=== PATIENT | male | born 1955 | race Caucasian/White ===

== ENCOUNTER → 2021-02-05 | Outpatient (CLI) | payer MEDICARE, OTHER ==
[2018-10-01 15:09] VITALS: BP 138/78
[~2021-02-05] MED LIST: AMLO-187 PO; ASPI-630 PO; ATOR10TA60 PO; LISI20TA18 PO; METO50TA6 PO; OMEP20CA16 PO
== END ==
LOC: LAB 08:40
PROVIDERS: ATTEND Surgery Vascular Surgery
DX: Z01.812 Encounter for preprocedural laboratory examination (principal); Z20.822 Contact with and (suspected) exposure to COVID-19
CPT/HCPCS: 87426

== ENCOUNTER 2021-02-06 09:30 | Outpatient (CLI) | payer MEDICARE, OTHER ==
[2021-02-06] VITALS (12 sets, daily range): BP systolic 118–153; BP diastolic 63–80
[~2021-02-06] VITALS: Ht 193 cm; Wt 108.2 kg
[2021-02-06 09:58] LABS: HEMATOCRIT 46.4 % (39.0-53.0); HEMOGLOBIN 15.8 g/dL (13.0-17.5); RED BLOOD COUNT 4.85 x10^6/uL (4.30-5.70); WHITE BLOOD COUNT 7.7 x10^3/uL (4.0-11.0)
[2021-02-06 10:08] LABS: PROTHROMBIN TIME PATIENT 13.3 SEC (11.7-14.0)
[2021-02-06] MEDS ORDERED: LIDOCAINE 1% Multi-Dose 20 ML VIAL. ONE ×2 (10:13→12:44)
[2021-02-06] MEDS ORDERED: IODIXANOL 320 MG/ML 100 ML VIAL. ONE (10:14)
[2021-02-06 10:26] LABS: CALCIUM 8.9 mg/dL (8.5-10.1); CREATININE 1.2 mg/dL (0.7-1.3); GFR 60.6; POTASSIUM 4.4 mmol/L (3.5-5.1)
[2021-02-06] MEDS ORDERED: fentaNYL PF VIAL 250 MCG/5 ML VIAL ONE (11:53)
[2021-02-06] MEDS ORDERED: HEPARIN for IV BOLUS 10,000 UNIT/10 ML VIAL. ONE (11:53)
[2021-02-06] MEDS ORDERED: MIDAZOLAM HCL/PF 5 MG/5 ML VIAL. ONE (11:53)
[2021-02-06] MEDS ORDERED: MIDAZOLAM HCL/PF 5 MG/5 ML VIAL. IV ONE ×2 (12:15→13:00)
[2021-02-06] MEDS ORDERED: LIDOCAINE 1% Multi-Dose 20 ML VIAL. INJ ONE (12:15)
[2021-02-06] MEDS ORDERED: fentaNYL PF VIAL 250 MCG/5 ML VIAL IV ONE ×2 (12:15→13:00)
[2021-02-06] MEDS ORDERED: IODIXANOL 320 MG/ML 100 ML VIAL. IART ONE (13:00)
[2021-02-06] MEDS ORDERED: LIDOCAINE 2% Multi-Dose 20 ML VIAL. IJ ONE (13:00)
--- NOTE | 2021-02-06 13:11 | DISCH ---
DISCHARGE INSTRUCTIONS Condition on Discharge Condition on Discharge: Stable Activity After Discharge Activity Instructions for Disc: Activity as tolerated, Other, see below Driving Instructions after Dis: Do not drive today Diet after Discharge Diet after Discharge: Cardiac Wound Incision Care Wound Care Equipment: Dressings (may remove dressing in 2 days, may shower) Contacting the after DC Call your doctor for: If your condition worsens Follow-Up Follow up with: Our office will call you for scheduled surgery ANGELIQUE NI APRN February 06, 2021 13:10
[2021-02-06] MEDS ORDERED: ACETAMINOPHEN 325 MG TABLET. PO PRN (13:15)
--- NOTE | 2021-02-06 13:36 | PDOC4 ---
OPERATIVE NOTE Date: Date: February 06, 2021 Pre-Op Diagnosis: PAD, abnormal TRANG Short distance claudication L > R Post-Op Diagnosis: same Procedure Performed: 1) U/S guided access right KETTLE COORDINATOR 2) 2nd order catheter placement below the diaphragm 3) Aortogram S&I 4) bilateral LE runoff S&I Surgeon: Luke Mendez MD Anesthesia Type: conscious sedation under Surgeon and RN supervision using IV Fentanyl and Versed Total 35 minutes Blood Loss: 10 cc Specimans Obtained: none Findings: 1) Aorta widely patent without aneurysm 2) bilateral common and external iliac widely patent 3) bilateral common femoral with moderate stenosis 4) left SFA occludes at its origin and reconstitues at the P2 -- below the knee there is some disease in the TP trunk, the ADITYA gives inline flow to the foot and below the TP trunk the PT and peroneal are patent 5) right KETTLE COORDINATOR shows mild stenosis -- on images after closure device there is a focal stenosis but flow through this 6) Right PFA patent, right SFA patent proximally, occludes at adductor canal and reconstitutes at the mid popliteal artery, there is good 3 vessel runoff Complications: none Operative Note: Patient was taken to general laborer and placed supine on the table. A timeout was performed and the groins were prepped and draped in the sterile fashion. After confirmation of appropriate monitoring devices sedation was induced with IV fentanyl and versed. Attention was directed to the right groin where the femoral head was marked under fluoroscopy and local anesthetic was injected under U/S guidance. the KETTLE COORDINATOR was examined with U/S. It was found to be widely patent with good flow and an image of the vessels taken and saved for the medical record. Under real-time ultrasound guidance local anesthetic was again injected in the right common f emoral artery was accessed in retrograde fashion using micropuncture needle. This was confirmed under fluoroscopy after placement of the wire. The wire was placed via the cylinder technique and then the needle was exchanged for micropuncture sheath which was backbled easily. This was used to introduce a Bentson wire to the order fluoroscopic guidance and exchange the flexor sheath for a 5 Romansh sheath which was aspirated and flushed with difficulty. This was used to introduce a flush catheter in the aorta and aortogram was obtained. Cath was pulled back to the or bifurcation oblique pelvic angiograms were obtained. Cath was used to aorta bifurcation and pass the wire and the catheter the left common femoral artery. Left leg runoff was obtained. I felt the patient would be better suited with surgery so the catheter was removed over wire and the sheath was used to obtain right leg runoff. The sheath was removed over the Bentson wire and then used to deploy a 6 Romansh Angio-Seal the right femoral artery access site. This initially had some bleeding around the deployment so pressure was held. I was concerned about the distal pulse and so attention was directed to left groin and left femoral artery was accessed in a similar fashion as above. The cyst under ultrasound guidance just described above and we introduced the catheter into the aorta and then passed this into the right common carotid. Right groin and right leg runoff were obtained. There was a focal stenosis perhaps from the closure device perhaps from some disruption of some posterior plaque in the right common femoral artery with good flow through this we decided not to intervene. The sheath was removed and pressure was held and the patient was escorted to [facility] BYRON S MD February 06, 2021 13:36
--- NOTE | 2021-02-06 17:16 | NUR ---
Discharge Note: GRADY MCDONALD Discharge instructions and discharge home medications reviewed with Patient and a copy given. All questions have been answered and understanding verbalized. The following instructions and handouts were given: peripheral vascular disease,moderate sedation(adult),groin site care Discontinued lines and drains: Peripheral IV intact. Patient discharged to Home or Self Care withSpousevia Wheelchair
== END 2021-02-06 17:29 | disposition home or self-care (01) ==
LOC: CCL 09:30
PROVIDERS: ATTEND Surgery Vascular Surgery
DX: I73.9 Peripheral vascular disease, unspecified (principal); I25.10 Atherosclerotic heart disease of native coronary artery without angina pectoris; E78.00 Pure hypercholesterolemia, unspecified; K21.9 Gastro-esophageal reflux disease without esophagitis; I10 Essential (primary) hypertension; M19.90 Unspecified osteoarthritis, unspecified site; Z87.891 Personal history of nicotine dependence; Z79.82 Long term (current) use of aspirin; Z79.899 Other long term (current) drug therapy; Z98.890 Other specified postprocedural states
CPT/HCPCS: 36246; 36415; 75625; 75716; 76937; 80048; 85027; 85610; 99152; 99153; C1760; C1769; C1892; C1894; J0690; J1644; J2250; J3010; J3490; Q9967; G0269

== ENCOUNTER 2021-04-18 14:50 | Inpatient (IN) | payer MEDICARE, OTHER ==
[~2021-04-18] VITALS: Ht 193 cm; Wt 108.3 kg
[~2021-04-18 14:50] MED LIST changes: +CLOP75TA PO; +OXYC1TAB15 PO
[2021-04-18 17:03] LABS: BILIRUBIN,URINE NEGATIVE (NEG); CLARITY,URINE CLEAR; COLOR,URINE YELLOW; NITRITE,URINE NEGATIVE (NEG); PROTEIN,URINE NEGATIVE (NEG-TRACE); UROBILINOGEN,URINE 0.2 mg/dL (0.2 mg/dL)
[2021-04-18 17:09] LABS: BACTERIA,URINE 0 /HPF (0-FEW); RBC,URINE 0 /HPF (0-2); WBC,URINE 0 /HPF (0-4)
[2021-04-18 17:59] LABS: BASO # 0.1 x10^3/uL (0.0-0.2); BASO % 1 % (0-3); EOS # 0.1 x10^3/uL (0.0-0.7); EOS % 1 % (0-3); HEMATOCRIT 39.2 % (39.0-53.0); HEMOGLOBIN 13.5 g/dL (13.0-17.5); LYMPH # 1.9 x10^3/uL (1.0-4.8); LYMPH % 22 % (24-48); MEAN CORPUSCULAR HEMOGLOBIN 33 pg (25-35); MEAN CORPUSCULAR HGB CONC 34 g/dL (31-37); MEAN CORPUSCULAR VOLUME 96 fL (79-100); MONO # 1.1 x10^3/uL (0.0-1.1); MONO % 14 % (0-9); NEUT # 5.2 x10^3/uL (1.8-7.7); NEUT % 62 % (31-73); PLATELET COUNT 338 x10^3/uL (140-400); RED CELL DISTRIBUTION WIDTH 12.8 % (11.5-14.5); WHITE BLOOD COUNT 8.5 x10^3/uL (4.0-11.0)
[2021-04-18] MEDS ORDERED: PIP/TAZO PER PHARMACY MC PRN (18:00)
[2021-04-18 18:12] LABS: GFR 74.8; POTASSIUM 3.9 mmol/L (3.5-5.1)
[2021-04-18] MEDS ORDERED: PIPERACILLIN/TAZOBACTAM 3.375 GM in IV NORMAL SALINE 50ML 50 ML IV ONE (18:15)
[2021-04-18 18:18] LABS: ALBUMIN 3.4 g/dL (3.4-5.0); ALBUMIN/GLOBULIN RATIO 0.8 (1.0-1.7); TOTAL BILIRUBIN 0.4 mg/dL (0.2-1.0); TOTAL PROTEIN 7.5 g/dL (6.4-8.2)
--- NOTE | 2021-04-18 18:55 | PHYS DOC ---
Past Medical History Past Surgical History: Tonsillectomy, Other Additional Past Surgical Histo: VASCULAR LL LEG, BILAT FEET Smoking Status: Former Smoker General Adult EDM: Chief Complaint: LOWER EXT PAIN HPI: HPI: Patient is a 65 year old male who presents to the emergency department complaining of a left lower leg infection that he noticed getting worse over the past 3 days. Patient reports having a femoropopliteal bypass related to a arterial clot in the left leg with surgery on March 232020 here at [facility]. Patient noticed over the past 3 days that his leg was getting more red and started to drain yellowish straw-colored fluid. Patient describes his redness as if he put a red sock on his leg. Patient denies any pain to his lower extremity, denies feeling any coldness or any warm sensations. Patient d enies any loss of sensation. Patient denies any fever or chills, denies chest pain or shortness of breath. Denies rashes of his skin. Patient states he is a patient of Dr. Su. Reports having his COVID-19 virus vaccination series completed second dose on December 06, Camryn camara. Patient denies any other physical complaints or physical concerns. Review of Systems: Review of Systems: 14 body systems of review of systems have been reviewed. See HPI for pertinent positives and negative responses, otherwise all other systems are negative, nonpertinent or noncontributory. Constitutional: Negative except as outlined in HPI above. Skin: Negative except as outlined in HPI above. Eyes: Negative except as outlined in HPI above. HENT: Negative except as outlined in HPI above. Respiratory: Negative except as outlined in HPI above. Cardiovascular: Negative except as outlined in HPI above. GI: Negative except as outlined in HPI above. : Negative except as outlined in HPI above. Musculoskeletal: Negative except as outlined in HPI above. Integument: Negative except as outlined in HPI above. Neurologic: Negative except as outlined in HPI above. Endocrine: Negative except as outlined in HPI above. Lymphatic: Negative except as outlined in HPI above. Psychiatric: Negative except as outlined in HPI above. Heart Score: C/O Chest Pain: No Risk Factors: Risk Factors: DM, Current or recent (<one month) smoker, HTN, HLP, family history of CAD, obesity. Risk Scores: Score 0 - 3: 2.5% MACE over next 6 weeks - Discharge Home Score 4 - 6: 20.3% MACE over next 6 weeks - Admit for Clinical Observation Score 7 - 10: 72.7% MACE over next 6 weeks - Early Invasive Strategies Current Medications: Current Medications Medications (Trade) Dose Ordered Sig/Porfirio Start Time Stop Time Status Last Admin Dose Admin Piperacillin Sod/ Tazobactam Sod (Zosyn Per Pharmacy) 1 each PRN DAILY PRN 04/18/21 18:00 Piperacillin Sod/ Tazobactam Sod 3.375 gm/Sodium Chloride 50 ml @ 100 mls/hr Q6HRS 04/19/21 00:00 Allergies: Allergies: Allergies Coded Allergies Type Severity Reaction Last Updated Verified No Known Drug Allergies 03/23/21 No Physical Exam: PE: C constitutional: Well developed, well nourished, no acute distress, non-toxic appearance. 65-year-old male in no apparent distress. HENT: Normocephalic, atraumatic. Eyes: Conjunctiva normal, no discharge. Neck: Normal range of motion, no stridor. Cardiovascular: No cyanosis appreciated, distal cap refill less than 2 seconds. Lungs & Thorax: Patient is in no respiratory distress, no audible adventitious lung sounds appreciated. Abdomen: Nontender, no abnormalities noted. Skin: Warm, dry, no erythema, no rash. See extremity note for focused skin examination. Back: No tenderness, no deformities. Extremities: No tenderness, no cyanosis, no clubbing, ROM intact, no edema. Except for left lower extremity. Patient's recent surgical scars well healing without infectious process noted. Patient does have erythematous skin with lichenification and weeping of serous fluid. From just below knee to just above ankle. 1+ dorsalis pedis pulse, posterior tibial pulse not appreciated per palpation. Distal cap refills less than 2 seconds, full AROM/PROM of knee, ankle, toe joints. No loss of sensation. Mild 1+ nonpitting edema of the lower extremity below the knee. No lymphangitis appreciated. Neurologic: Alert and oriented X 3, normal motor function, normal sensory function, no focal deficits noted. Psychologic: Affect normal, judgement normal, mood normal. Current Patient Data: Labs: Laboratory Tests Test 04/18/21 16:15 04/18/21 17:40 Urine Collection Type Unknown Urine Color Yellow Urine Clarity Clear Urine pH 6.0 Urine Specific [place] 1.010 Urine Protein Negative mg/dL Urine Glucose (UA) Negative mg/dL Urine Ketones (Stick) Negative mg/dL Urine Blood Negative Urine Nitrite Negative Urine Bilirubin Negative Urine Urobilinogen Dipstick 0.2 mg/dL Urine Leukocyte Esterase Negative Urine RBC 0 /HPF Urine WBC 0 /HPF Urine Bacteria 0 /HPF White Blood Count 8.5 x10^3/uL Red Blood Count 4.10 x10^6/uL Hemoglobin 13.5 g/dL Hematocrit 39.2 % Mean Corpuscular Volume 96 fL Mean Corpuscular Hemoglobin 33 pg Mean Corpuscular Hemoglobin Concent 34 g/dL Red Cell Distribution Width 12.8 % Platelet Count 338 x10^3/uL Neutrophils (%) (Auto) 62 % Lymphocytes (%) (Auto) 22 % Monocytes (%) (Auto) 14 % Eosinophils (%) (Auto) 1 % Basophils (%) (Auto) 1 % Neutrophils # (Auto) 5.2 x10^3/uL Lymphocytes # (Auto) 1.9 x10^3/uL Monocytes # (Auto) 1.1 x10^3/uL Eosinophils # (Auto) 0.1 x10^3/uL Basophils # (Auto) 0.1 x10^3/uL Sodium Level 133 mmol/L Potassium Level 3.9 mmol/L Chloride Level 95 mmol/L Carbon Dioxide Level 25 mmol/L Anion Gap 13 Blood Urea Nitrogen 15 mg/dL Creatinine 1.0 mg/dL Estimated GFR (Cockcroft-Gault) 74.8 BUN/Creatinine Ratio 15 Glucose Level 115 mg/dL Lactic Acid Level 1.2 mmol/L Calcium Level 9.0 mg/dL Total Bilirubin 0.4 mg/dL Aspartate Amino Transf (AST/SGOT) 25 U/L Alanine Aminotransferase (ALT/SGPT) 20 U/L Alkaline Phosphatase 98 U/L Total Protein 7.5 g/dL Albumin 3.4 g/dL Albumin/Globulin Ratio 0.8 Current Medications Medications (Trade) Dose Ordered Sig/Porfirio Route PRN Reason Start Time Stop Time Status Last Admin Dose Admin Piperacillin Sod/ Tazobactam Sod (Zosyn Per Pharmacy) 1 each PRN DAILY PRN MC SEE COMMENTS 04/18/21 18:00 Piperacillin Sod/ Tazobactam Sod 3.375 gm/Sodium Chloride 50 ml @ 100 mls/hr 1X ONCE IV 04/18/21 18:15 04/18/21 18:44 04/18/21 18:29 100 MLS/HR Piperacillin Sod/ Tazobactam Sod 3.375 gm/Sodium Chloride 50 ml @ 100 mls/hr Q6HRS IV 04/19/21 00:00 Laboratory Tests Test 04/18/21 16:15 04/18/21 17:40 Urine Collection Type Unknown Urine Color Yellow Urine Clarity Clear Urine pH 6.0 (<5.0-8.0) Urine Specific [place] 1.010 (1.000-1.030) Urine Protein Negative mg/dL (NEG-TRACE) Urine Glucose (UA) Negative mg/dL (NEG) Urine Ketones (Stick) Negative mg/dL (NEG) Urine Blood Negative (NEG) Urine Nitrite Negative (NEG) Urine Bilirubin Negative (NEG) Urine Urobilinogen Dipstick 0.2 mg/dL (0.2 mg/dL) Urine Leukocyte Esterase Negative (NEG) Urine RBC 0 /HPF (0-2) Urine WBC 0 /HPF (0-4) Urine Bacteria 0 /HPF (0-FEW) White Blood Count 8.5 x10^3/uL (4.0-11.0) Red Blood Count 4.10 x10^6/uL (4.30-5.70) L Hemoglobin 13.5 g/dL (13.0-17.5) Hematocrit 39.2 % (39.0-53.0) Mean Corpuscular Volume 96 fL (79-100) Mean Corpuscular Hemoglobin 33 pg (25-35) Mean Corpuscular Hemoglobin Concent 34 g/dL (31-37) Red Cell Distribution Width 12.8 % (11.5-14.5) Platelet Count 338 x10^3/uL (140-400) Neutrophils (%) (Auto) 62 % (31-73) Lymphocytes (%) (Auto) 22 % (24-48) L Monocytes (%) (Auto) 14 % (0-9) H Eosinophils (%) (Auto) 1 % (0-3) Basophils (%) (Auto) 1 % (0-3) Neutrophils # (Auto) 5.2 x10^3/uL (1.8-7.7) Lymphocytes # (Auto) 1.9 x10^3/uL (1.0-4.8) Monocytes # (Auto) 1.1 x10^3/uL (0.0-1.1) Eosinophils # (Auto) 0.1 x10^3/uL (0.0-0.7) Basophils # (Auto) 0.1 x10^3/uL (0.0-0.2) Sodium Level 133 mmol/L (136-145) L Potassium Level 3.9 mmol/L (3.5-5.1) Chloride Level 95 mmol/L (98-107) L Carbon Dioxide Level 25 mmol/L (21-32) Anion Gap 13 (6-14) Blood Urea Nitrogen 15 mg/dL (8-26) Creatinine 1.0 mg/dL (0.7-1.3) Estimated GFR (Cockcroft-Gault) 74.8 BUN/Creatinine Ratio 15 (6-20) Glucose Level 115 mg/dL (70-99) H Lactic Acid Level 1.2 mmol/L (0.4-2.0) Calcium Level 9.0 mg/dL (8.5-10.1) Total Bilirubin 0.4 mg/dL (0.2-1.0) Aspartate Amino Transferase (AST) 25 U/L (15-37) Alanine Aminotransferase (ALT) 20 U/L (16-63) Alkaline Phosphatase 98 U/L (46-116) Total Protein 7.5 g/dL (6.4-8.2) Albumin 3.4 g/dL (3.4-5.0) Albumin/Globulin Ratio 0.8 (1.0-1.7) L Laboratory Tests 04/18/21 17:40 Laboratory Tests 04/18/21 17:40 Vital Signs: Vital Signs Date Time Temp Pulse Resp B/P (MAP) Pulse Ox O2 Delivery O2 Flow Rate FiO2 04/18/21 17:07 98.5 100 16 165/79 (79) 99 Room Air 98.5 EKG: EKG: [] Radiology/Procedures: Radiology/Procedures: [] Course & Med Decision Making: Course & Med Decision Making Pertinent Labs and Imaging studies reviewed. (See chart for details) Two 5-year-old male, vital signs reviewed, presents emergency department concerning left lower extremity infection. Physical examination consistent with cellulitis of the left lower extremity just below the knee. Patient did have recent femoropopliteal bypass surgery related to arterial clot. Surgical scar is well-healing. Will order CBC, CMP, lactic acid. Blood cultures x2. ED planning to admit for cellulitis infection. Patient is amenable to this plan. Called and discussed patient case and ED work-up with [facility] hospitalist Dr. Miranda who agrees patient presentation and case warrants admission to the hospital. Dr. Miranda requested infectious disease and vascular surgery consult, serial duplex study of left lower extremity related to recent surgery. Will start on Zosyn per pharmacy dosed to treat cellulitis. Patient will be ad mitted to MedSur unit. Dr. Miranda will evaluate patient's admission and assume further care. Dragon Disclaimer: Dragon Disclaimer: This electronic medical record was generated, in whole or in part, using a voice recognition dictation system. Departure Departure Impression: Primary Impression: Left leg cellulitis Disposition: ADMITTED INPATIENT Admitting Physician: STUART (Admit to Dr. Miranda to MedSurg unit.) Condition: STABLE Referrals: SALLY MADSEN MD (PCP) SHALOM GARCIA APRN Apr 18, 2021 18:55
--- NOTE | 2021-04-18 20:24 | RAD ---
Left lower extremity arterial duplex Doppler ultrasound HISTORY: Left leg pain, acute cellulitis, history of femoral popliteal arterial bypass, decreased lef t leg posterior tibial and pedal arterial pulses. FINDINGS: Left groin demonstrates a predominantly fatty-replaced are prominent in size lymph node wit hin the range of normal measuring 3.3 x 1.2 cm. The left leg arteries demonstrate mild echogenic calcified plaquing of the common femoral artery down the leg, no thrombosis or focal high-grade stenosis or occlusion evident on grayscale and color Dopp ler sonography. There are biphasic arterial waveforms through the common femoral artery and profunda femoral artery and upper superficial femoral artery, with monophasic waveforms of the distal superfic ial femoral artery to the popliteal artery and calf arteries. No tardus parvus waveform abnormality e vident. Individual flow velocities are described below. Common femoral artery: 61 cm/s Superficial femoral artery: 84 cm/s upper thigh, 122 cm/s mid thigh, 61 cm/s lower thigh Profunda femoral artery: 103 cm/s Popliteal artery: 26 cm/s proximal, 84 cm/s distal Posterior tibial artery: 81 cm/s Peroneal artery: 74 cm/s Anterior tibial artery: 41 cm/s Dorsalis pedis artery: 55 cm/s Impression: Plaquing of the left leg arteries and associated monophasic waveforms of the distal super ficial femoral artery to the popliteal artery and calf arteries indicative of peripheral vascular dis ease. There is no evidence of hemodynamically significant stenosis or occlusion of the leg arteries. See above. Electronically signed by: Marcellus Calderón MD (04/18/2021 8:22 PM) [facility]
[2021-04-18 21:20] VITALS: BP 151/77
[2021-04-18] MEDS ORDERED: ACETAMINOPHEN 325 MG TABLET. PO PRN (22:45)
[2021-04-18] MEDS ORDERED: HYDROcodone/APAP 5/325MG 1 TAB TABLET PO PRN (22:45)
[2021-04-18 23:00] VITALS: BP 129/78
[2021-04-18] MEDS: ATORVASTATIN CALCIUM 10 MG TABLET. PO SCH (23:22)
[2021-04-18] MEDS: METOPROLOL TART IMMED RELEASE 50 MG TABLET. PO SCH (23:22)
[2021-04-18] MEDS: PIPERACILLIN/TAZOBACTAM 3.375 GM in IV NORMAL SALINE 50ML 50 ML IV SCH (23:49)
[2021-04-19 03:00] VITALS: BP 120/71
[2021-04-19] MEDS: PIPERACILLIN/TAZOBACTAM 3.375 GM in IV NORMAL SALINE 50ML 50 ML IV SCH (05:39)
[2021-04-19 07:00] VITALS: BP 143/82
--- NOTE | 2021-04-19 08:05 | PDOC1 ---
History and Physical Date of Service: DOS: DATE: 04/19/21 TIME: 08:01 Chief Complaint: Chief Complain: Left lower leg redness and pain History of Present Illness: HPI: 65 year old male who presents to the emergency department complaining of a left lower leg infection that he noticed getting worse over the past 3 days. Patient reports having a femoropopliteal bypass with nonreversed SV graft rel ated to a arterial clot in the left leg with surgery on March 232020 here at [facility]. Patient noticed over the past 3 days that his leg was getting more red and started to drain yellowish straw-colored fluid. Patient describes his redness as if he put a red sock on his leg. Patient denies any pain to his lower extremity, denies feeling any coldness or any warm sensations. Patient denies any loss of sensation. Patient denies any fever or chills, denies chest pain or shortness of breath. Denies rashes of his skin. Patient states he is a patient of Dr. Su. Reports having his COVID-19 virus vaccination series completed second dose on December 06, Moderna brand. Patient denies any other physical complaints or physical concerns. Past Medical/Surgical History: PMH/PSH: Past Surgical History: Tonsillectomy, Left fem-pop bypass Allergies: Allergies: Coded Allergies: No Known Drug Allergies (Unverified , 03/23/21) Family History: Family History: Reviewed with no relevant findings Social History: Social History: Smoking Status: Former Smoker Current Medications: Current Medications Current Medications Piperacillin Sod/ Tazobactam Sod (Zosyn Per Pharmacy) 1 each PRN DAILY PRN MC SEE COMMENTS; Start 04/18/21 at 18:00 Piperacillin Sod/ Tazobactam Sod 3.375 gm/Sodium Chloride 50 ml @ 100 mls/hr 1X ONCE IV Last administered on 04/18/21at 18:29; Start 04/18/21 at 18:15; Stop 04/18/21 at 18:44; Status DC Piperacillin Sod/ Tazobactam Sod 3.375 gm/Sodium Chloride 50 ml @ 100 mls/hr Q6HRS IV Last administered on 04/19/21at 05:39; Start 04/19/21 at 00:00 Acetaminophen (Tylenol) 650 mg PRN Q6HRS PRN PO MILD PAIN / TEMP > 100.3'F; Start 04/18/21 at 22:45 Acetaminophen/ Hydrocodone Bitart (Lortab 5/325) 1 tab PRN Q4HRS PRN PO MODERATE PAIN 4-6; Start 04/18/21 at 22:45 Atorvastatin Calcium (Lipitor) 10 mg HS PO Last administered on 04/18/21at 23:22; Start 04/18/21 at 23:00 Metoprolol Tartrate (Lopressor) 50 mg BID PO Last administered on 04/18/21at 23:22; Start 04/18/21 at 23:00 Active Scripts Active Reported Clopidogrel (Clopidogrel Bisulfate) 75 Mg Tablet 75 Mg PO DAILY Omeprazole 20 Mg Capsule.dr 20 Mg PO DAILY Metoprolol Tartrate 50 Mg Tablet 50 Mg PO BID Lisinopril 20 Mg Tablet 20 Mg PO DAILY Atorvastatin Calcium 10 Mg Tablet 10 Mg PO HS Aspirin 81 Mg Tab.chew 81 Mg PO DAILY Amlodipine Besylate 10 Mg Tablet 10 Mg PO DAILY ROS: Review of Systems Review of System REVIEW OF SYSTEMS: GENERAL: Denies weakness SKIN: No bruising, hair changes or rashes. EYES: No blurred, double or loss of vision. NOSE AND THROAT: No history of nosebleeds, hoarseness or sore throat. HEART: No history of palpitations, chest pain or shortness of breath on exertion. LUNGS: Denies cough, hemoptysis, wheezing or shortness of breath. GASTROINTESTINAL: Denies changes in appetite, nausea, vomiting, diarrhea or constipation. GENITOURINARY: No history of frequency, urgency, hesitancy or nocturia. NEUROLOGIC: Denies history of numbness, tingling, or tremor. PSYCHIATRIC: No history of panic, anxiety or depression. ENDOCRINE: No history of heat or cold intolerance, polyuria or polydipsia. EXTREMITIES: Positive for left leg redness and pain Physical Exam: Vital Signs: Vital Signs Date Time Temp Pulse Resp B/P (MAP) Pulse Ox O2 Delivery O2 Flow Rate FiO2 04/19/21 07:00 97.6 86 16 143/82 (102) 96 Room Air 97.6 Physcial Exam: General: Well developed, well nourished, no acute distress, well appearing HEENT: Pupils equally round and reactive to light, EOMI, no discharge, normal conjunctiva Neck: Supple, no nuchal rigidity, no JVD, trachea midline, no tenderness Cardiac: RRR, no murmurs, no gallops, no rubs Chest/Lungs: CTAB, no wheeze, no rhonchi, no crackles Abdomen: soft, non-distended, no guarding, no peritoneal signs, non-tender Back: No tenderness Extremities: Bilateral lower extremities are warm. Left lower extremity cellulitis. Redness and swelling on the calf region. On the medial side just below the knee there is clear drainage through the incision site. No purulence. And tender to palpation. No fluctuance or mass palpated. Neuro: Alert and oriented x 4, no focal deficits, normal speech Labs: Labs: Laboratory Tests Test 04/18/21 16:15 04/18/21 17:40 Urine Collection Type Unknown Urine Color Yellow Urine Clarity Clear Urine pH 6.0 (<5.0-8.0) Urine Specific [place] 1.010 (1.000-1.030) Urine Protein Negative mg/dL (NEG-TRACE) Urine Glucose (UA) Negative mg/dL (NEG) Urine Ketones (Stick) Negative mg/dL (NEG) Urine Blood Negative (NEG) Urine Nitrite Negative (NEG) Urine Bilirubin Negative (NEG) Urine Urobilinogen Dipstick 0.2 mg/dL (0.2 mg/dL) Urine Leukocyte Esterase Negative (NEG) Urine RBC 0 /HPF (0-2) Urine WBC 0 /HPF (0-4) Urine Bacteria 0 /HPF (0-FEW) White Blood Count 8.5 x10^3/uL (4.0-11.0) Red Blood Count 4.10 x10^6/uL (4.30-5.70) Hemoglobin 13.5 g/dL (13.0-17.5) Hematocrit 39.2 % (39.0-53.0) Mean Corpuscular Volume 96 fL (79-100) Mean Corpuscular Hemoglobin 33 pg (25-35) Mean Corpuscular Hemoglobin Concent 34 g/dL (31-37) Red Cell Distribution Width 12.8 % (11.5-14.5) Platelet Count 338 x10^3/uL (140-400) Neutrophils (%) (Auto) 62 % (31-73) Lymphocytes (%) (Auto) 22 % (24-48) Monocytes (%) (Auto) 14 % (0-9) Eosinophils (%) (Auto) 1 % (0-3) Basophils (%) (Auto) 1 % (0-3) Neutrophils # (Auto) 5.2 x10^3/uL (1.8-7.7) Lymphocytes # (Auto) 1.9 x10^3/uL (1.0-4.8) Monocytes # (Auto) 1.1 x10^3/uL (0.0-1.1) Eosinophils # (Auto) 0.1 x10^3/uL (0.0-0.7) Basophils # (Auto) 0.1 x10^3/uL (0.0-0.2) Sodium Level 133 mmol/L (136-145) Potassium Level 3.9 mmol/L (3.5-5.1) Chloride Level 95 mmol/L (98-107) Carbon Dioxide Level 25 mmol/L (21-32) Anion Gap 13 (6-14) Blood Urea Nitrogen 15 mg/dL (8-26) Creatinine 1.0 mg/dL (0.7-1.3) Estimated GFR (Cockcroft-Gault) 74.8 BUN/Creatinine Ratio 15 (6-20) Glucose Level 115 mg/dL (70-99) Lactic Acid Level 1.2 mmol/L (0.4-2.0) Calcium Level 9.0 mg/dL (8.5-10.1) Total Bilirubin 0.4 mg/dL (0.2-1.0) Aspartate Amino Transf (AST/SGOT) 25 U/L (15-37) Alanine Aminotransferase (ALT/SGPT) 20 U/L (16-63) Alkaline Phosphatase 98 U/L (46-116) Total Protein 7.5 g/dL (6.4-8.2) Albumin 3.4 g/dL (3.4-5.0) Albumin/Globulin Ratio 0.8 (1.0-1.7) Laboratory Tests Test 04/18/21 16:15 04/18/21 17:40 Urine Collection Type Unknown Urine Color Yellow Urine Clarity Clear Urine pH 6.0 (<5.0-8.0) Urine Specific [place] 1.010 (1.000-1.030) Urine Protein Negative mg/dL (NEG-TRACE) Urine Glucose (UA) Negative mg/dL (NEG) Urine Ketones (Stick) Negative mg/dL (NEG) Urine Blood Negative (NEG) Urine Nitrite Negative (NEG) Urine Bilirubin Negative (NEG) Urine Urobilinogen Dipstick 0.2 mg/dL (0.2 mg/dL) Urine Leukocyte Esterase Negative (NEG) Urine RBC 0 /HPF (0-2) Urine WBC 0 /HPF (0-4) Urine Bacteria 0 /HPF (0-FEW) White Blood Count 8.5 x10^3/uL (4.0-11.0) Red Blood Count 4.10 x10^6/uL (4.30-5.70) Hemoglobin 13.5 g/dL (13.0-17.5) Hematocrit 39.2 % (39.0-53.0) Mean Corpuscular Volume 96 fL (79-100) Mean Corpuscular Hemoglobin 33 pg (25-35) Mean Corpuscular Hemoglobin Concent 34 g/dL (31-37) Red Cell Distribution Width 12.8 % (11.5-14.5) Platelet Count 338 x10^3/uL (140-400) Neutrophils (%) (Auto) 62 % (31-73) Lymphocytes (%) (Auto) 22 % (24-48) Monocytes (%) (Auto) 14 % (0-9) Eosinophils (%) (Auto) 1 % (0-3) Basophils (%) (Auto) 1 % (0-3) Neutrophils # (Auto) 5.2 x10^3/uL (1.8-7.7) Lymphocytes # (Auto) 1.9 x10^3/uL (1.0-4.8) Monocytes # (Auto) 1.1 x10^3/uL (0.0-1.1) Eosinophils # (Auto) 0.1 x10^3/uL (0.0-0.7) Basophils # (Auto) 0.1 x10^3/uL (0.0-0.2) Sodium Level 133 mmol/L (136-145) Potassium Level 3.9 mmol/L (3.5-5.1) Chloride Level 95 mmol/L (98-107) Carbon Dioxide Level 25 mmol/L (21-32) Anion Gap 13 (6-14) Blood Urea Nitrogen 15 mg/dL (8-26) Creatinine 1.0 mg/dL (0.7-1.3) Estimated GFR (Cockcroft-Gault) 74.8 BUN/Creatinine Ratio 15 (6-20) Glucose Level 115 mg/dL (70-99) Lactic Acid Level 1.2 mmol/L (0.4-2.0) Calcium Level 9.0 mg/dL (8.5-10.1) Total Bilirubin 0.4 mg/dL (0.2-1.0) Aspartate Amino Transf (AST/SGOT) 25 U/L (15-37) Alanine Aminotransferase (ALT/SGPT) 20 U/L (16-63) Alkaline Phosphatase 98 U/L (46-116) Total Protein 7.5 g/dL (6.4-8.2) Albumin 3.4 g/dL (3.4-5.0) Albumin/Globulin Ratio 0.8 (1.0-1.7) Images: Images PROCEDURE: DUPLEX LOWER EXT ARTERIAL LEFT Left lower extremity arterial duplex Doppler ultrasound HISTORY: Left leg pain, acute cellulitis, history of femoral popliteal arterial bypass, decreased left leg posterior tibial and pedal arterial pulses. FINDINGS: Left groin demonstrates a predominantly fatty-replaced are prominent in size lymph node within the range of normal measuring 3.3 x 1.2 cm. The left leg arteries demonstrate mild echogenic calcified plaquing of the common femoral artery down the leg, no thrombosis or focal high-grade stenosis or occlusion evident on grayscale and color Doppler sonography. There are biphasic arterial waveforms through the common femoral artery and profunda femoral artery and upper superficial femoral artery, with monophasic waveforms of the distal superficial femoral artery to the popliteal artery and calf arteries. No tardus parvus waveform abnormality evident. Individual flow velocities are described below. Common femoral artery: 61 cm/s Superficial femoral artery: 84 cm/s upper thigh, 122 cm/s mid thigh, 61 cm/s lower thigh Profunda femoral artery: 103 cm/s Popliteal artery: 26 cm/s proximal, 84 cm/s distal Posterior tibial artery: 81 cm/s Peroneal artery: 74 cm/s Anterior tibial artery: 41 cm/s Dorsalis pedis artery: 55 cm/s Impression: Plaquing of the left leg arteries and associated monophasic waveforms of the distal superficial femoral artery to the popliteal artery and calf arteries indicative of peripheral vascular disease. There is no evidence of hemodynamically significant stenosis or occlusion of the leg arteries. See above. Assessment/Plan Assessment/Plan Left lower extremity cellulitis Acute electrolyte derangementhyponatremia, hypochloremia due to volume depletion History of peripheral vascular disease status post left lower extremity femoropopliteal bypass Admit to hospital service for further management Vascular surgery consult ID consult Continue empiric IV antibiotics Pending ultrasound for determined if there is fluid collection underneath the incision site. Lovenox for DVT prophylaxis Protonix GI prophylaxis ADA diet Full code Discussed with RN and SW Disposition inpatient management as above Surrogate decision maker is Justifications for Admission Other Justification RADHA ISABEL MD Apr 19, 2021 08:05
[2021-04-19] MEDS: METOPROLOL TART IMMED RELEASE 50 MG TABLET. PO SCH ×2 (08:41→20:25)
--- NOTE | 2021-04-19 09:40 | NUR ---
SW following. Discussed with RN, pt from home, room air, cardiac diet. Woundcare, ID and Vascular following. Possible procedure tomorrow. PT/OT being ordered. SW will continue to follow.
--- NOTE | 2021-04-19 10:37 | PDOC2 ---
CONSULT Date of Service Date of Service DATE: 04/19/21 TIME: 10:18 Reason for Consult Reason for Consult: Recent left lower extremity bypass with cellulitis Referring Physician Referring Physician: Dr. Miranda Identification/Chief Complaint Chief Complaint Left calf swelling, redness and drainage Source Source: Chart review, Patient History of Present Illness Reason for Visit: This is a 65-year-old male with history of peripheral vascular disease, hypertension, hyperlipidemia and recent left lower extremity distal bypass who presented to the emergency room with increasing redness, swelling and drainage from his distal calf incision. Patient states that the redness started approxi mately a week ago and two day history of drainage from his distal incision. Currently he describes the drainage as yellow/clear. He patient underwent left common femoral, profundafemoral, deep femoral endarterectomy along with common femoral to distal popliteal bypass on March 23, [address] Armenta. Patient was seen in our office on April 10, 2020 when he was noted to have some lower extremity swelling but no redness or wound dehiscence. He maintains a palpable bypass graft pulse. Patient denies any fever chills. Patient denies any nausea or vomiting. He states he is able to ambulate without difficulty. He states he has had improvement in his foot pain post surgery. Arterial ultrasound suggest patent bypass. Past Medical History Cardiovascular: HTN, Hyperlipidemia, Other (Peripheral vascular disease tobacoism) Past Surgical History Past Surgical History: Tonsillectomy (left femoral popliteal bypass) Family History Family History non-contributory Social History Quit Current Problem List Problem List Problems Medical Problems: (1) Left leg cellulitis Status: Acute Current Medications Current Medications Current Medications Piperacillin Sod/ Tazobactam Sod (Zosyn Per Pharmacy) 1 each PRN DAILY PRN [facility] SEE COMMENTS; Start 04/18/21 at 18:00; Stop 04/19/21 at 09:42; Status DC Piperacillin Sod/ Tazobactam Sod 3.375 gm/Sodium Chloride 50 ml @ 100 mls/hr 1X ONCE IV Last administered on 04/18/21at 18:29; Start 04/18/21 at 18:15; Stop 04/18/21 at 18:44; Status DC Piperacillin Sod/ Tazobactam Sod 3.375 gm/Sodium Chloride 50 ml @ 100 mls/hr Q6HRS IV Last administered on 04/19/21at 05:39; Start 04/19/21 at 00:00; Stop 04/19/21 at 09:42; Status DC Acetaminophen (Tylenol) 650 mg PRN Q6HRS PRN PO MILD PAIN / TEMP > 100.3'F; Start 04/18/21 at 22:45 Acetaminophen/ Hydrocodone Bitart (Lortab 5/325) 1 tab PRN Q4HRS PRN PO MODERATE PAIN 4-6; Start 04/18/21 at 22:45 Atorvastatin Calcium (Lipitor) 10 mg HS PO Last administered on 04/18/21at 23:22; Start 04/18/21 at 23:00 Metoprolol Tartrate (Lopressor) 50 mg BID PO Last administered on 04/19/21at 08:41; Start 04/18/21 at 23:00 Active Scripts Active Reported Clopidogrel (Clopidogrel Bisulfate) 75 Mg Tablet 75 Mg PO DAILY Omeprazole 20 Mg Capsule.dr 20 Mg PO DAILY Metoprolol Tartrate 50 Mg Tablet 50 Mg PO BID Lisinopril 20 Mg Tablet 20 Mg PO DAILY Atorvastatin Calcium 10 Mg Tablet 10 Mg PO HS Aspirin 81 Mg Tab.chew 81 Mg PO DAILY Amlodipine Besylate 10 Mg Tablet 10 Mg PO DAILY Allergies Allergies: Coded Allergies: No Known Drug Allergies (Unverified , 03/23/21) ROS Review of System Constitutional: Denies fever or chills Eyes: Denies any visual disturbances HENT: Denies nasal congestion or sore throat Respiratory: Denies cough or shortness of breath Cardiovascular: Denies any palpitations or chest pain GI: Denies abdominal pain, nausea, vomiting, bloody stools or diarrhea : Denies dysuria or hematuria Musculoskeletal: As per HPI Integument: As per HPI Neurologic: No gross deficits Endocrine: No excessive thirst Physical Exam Physical Exam General: Alert and oriented X3 HEENT: Atraumatic, Pupils equal, round. Mucous membranes moist. Neck: Supple, no lymphadenopathy Cardiac: Heart rate regular. Normal carotid pulses. Lungs: CTA, non-labored respirations. Abdomen: Soft, nontender, nondistended, no palpable masses. Extremities: palpable left leg bypass graft pulse. Capillary refill < 3 secs. Hand held doppler unavailable to assess distal pulses. Musculoskeletal: Gait steady. Moving all extremities. Skin: Left foot warm, moderate to severe swelling and erythema in left calf extending into foot. Distal calf incision with small punctuate dehiscence with yellow/clear drainage. During my examination I was able to express only a small amount of fluid. No fluctuance of crepitus. Gabriella incision with small distal superficial incision dehiscence, no drainage, no erythema. Neurological: Motor and sensation intact. Psychiatry: No depression or anxiety Vitals VITALS Vital Signs Date Time Temp Pulse Resp B/P (MAP) Pulse Ox O2 Delivery O2 Flow Rate FiO2 04/19/21 08:41 86 143/82 04/19/21 07:00 97.6 16 96 Room Air 97.6 Labs Labs Laboratory Tests Test 04/18/21 16:15 04/18/21 17:40 Urine Collection Type Unknown Urine Color Yellow Urine Clarity Clear Urine pH 6.0 (<5.0-8.0) Urine Specific [place] 1.010 (1.000-1.030) Urine Protein Negative mg/dL (NEG-TRACE) Urine Glucose (UA) Negative mg/dL (NEG) Urine Ketones (Stick) Negative mg/dL (NEG) Urine Blood Negative (NEG) Urine Nitrite Negative (NEG) Urine Bilirubin Negative (NEG) Urine Urobilinogen Dipstick 0.2 mg/dL (0.2 mg/dL) Urine Leukocyte Esterase Negative (NEG) Urine RBC 0 /HPF (0-2) Urine WBC 0 /HPF (0-4) Urine Bacteria 0 /HPF (0-FEW) White Blood Count 8.5 x10^3/uL (4.0-11.0) Red Blood Count 4.10 x10^6/uL (4.30-5.70) Hemoglobin 13.5 g/dL (13.0-17.5) Hematocrit 39.2 % (39.0-53.0) Mean Corpuscular Volume 96 fL (79-100) Mean Corpuscular Hemoglobin 33 pg (25-35) Mean Corpuscular Hemoglobin Concent 34 g/dL (31-37) Red Cell Distribution Width 12.8 % (11.5-14.5) Platelet Count 338 x10^3/uL (140-400) Neutrophils (%) (Auto) 62 % (31-73) Lymphocytes (%) (Auto) 22 % (24-48) Monocytes (%) (Auto) 14 % (0-9) Eosinophils (%) (Auto) 1 % (0-3) Basophils (%) (Auto) 1 % (0-3) Neutrophils # (Auto) 5.2 x10^3/uL (1.8-7.7) Lymphocytes # (Auto) 1.9 x10^3/uL (1.0-4.8) Monocytes # (Auto) 1.1 x10^3/uL (0.0-1.1) Eosinophils # (Auto) 0.1 x10^3/uL (0.0-0.7) Basophils # (Auto) 0.1 x10^3/uL (0.0-0.2) Sodium Level 133 mmol/L (136-145) Potassium Level 3.9 mmol/L (3.5-5.1) Chloride Level 95 mmol/L (98-107) Carbon Dioxide Level 25 mmol/L (21-32) Anion Gap 13 (6-14) Blood Urea Nitrogen 15 mg/dL (8-26) Creatinine 1.0 mg/dL (0.7-1.3) Estimated GFR (Cockcroft-Gault) 74.8 BUN/Creatinine Ratio 15 (6-20) Glucose Level 115 mg/dL (70-99) Lactic Acid Level 1.2 mmol/L (0.4-2.0) Calcium Level 9.0 mg/dL (8.5-10.1) Total Bilirubin 0.4 mg/dL (0.2-1.0) Aspartate Amino Transf (AST/SGOT) 25 U/L (15-37) Alanine Aminotransferase (ALT/SGPT) 20 U/L (16-63) Alkaline Phosphatase 98 U/L (46-116) Total Protein 7.5 g/dL (6.4-8.2) Albumin 3.4 g/dL (3.4-5.0) Albumin/Globulin Ratio 0.8 (1.0-1.7) Laboratory Tests Test 04/18/21 16:15 04/18/21 17:40 Urine Collection Type Unknown Urine Color Yellow Urine Clarity Clear Urine pH 6.0 (<5.0-8.0) Urine Specific [place] 1.010 (1.000-1.030) Urine Protein Negative mg/dL (NEG-TRACE) Urine Glucose (UA) Negative mg/dL (NEG) Urine Ketones (Stick) Negative mg/dL (NEG) Urine Blood Negative (NEG) Urine Nitrite Negative (NEG) Urine Bilirubin Negative (NEG) Urine Urobilinogen Dipstick 0.2 mg/dL (0.2 mg/dL) Urine Leukocyte Esterase Negative (NEG) Urine RBC 0 /HPF (0-2) Urine WBC 0 /HPF (0-4) Urine Bacteria 0 /HPF (0-FEW) White Blood Count 8.5 x10^3/uL (4.0-11.0) Red Blood Count 4.10 x10^6/uL (4.30-5.70) Hemoglobin 13.5 g/dL (13.0-17.5) Hematocrit 39.2 % (39.0-53.0) Mean Corpuscular Volume 96 fL (79-100) Mean Corpuscular Hemoglobin 33 pg (25-35) Mean Corpuscular Hemoglobin Concent 34 g/dL (31-37) Red Cell Distribution Width 12.8 % (11.5-14.5) Platelet Count 338 x10^3/uL (140-400) Neutrophils (%) (Auto) 62 % (31-73) Lymphocytes (%) (Auto) 22 % (24-48) Monocytes (%) (Auto) 14 % (0-9) Eosinophils (%) (Auto) 1 % (0-3) Basophils (%) (Auto) 1 % (0-3) Neutrophils # (Auto) 5.2 x10^3/uL (1.8-7.7) Lymphocytes # (Auto) 1.9 x10^3/uL (1.0-4.8) Monocytes # (Auto) 1.1 x10^3/uL (0.0-1.1) Eosinophils # (Auto) 0.1 x10^3/uL (0.0-0.7) Basophils # (Auto) 0.1 x10^3/uL (0.0-0.2) Sodium Level 133 mmol/L (136-145) Potassium Level 3.9 mmol/L (3.5-5.1) Chloride Level 95 mmol/L (98-107) Carbon Dioxide Level 25 mmol/L (21-32) Anion Gap 13 (6-14) Blood Urea Nitrogen 15 mg/dL (8-26) Creatinine 1.0 mg/dL (0.7-1.3) Estimated GFR (Cockcroft-Gault) 74.8 BUN/Creatinine Ratio 15 (6-20) Glucose Level 115 mg/dL (70-99) Lactic Acid Level 1.2 mmol/L (0.4-2.0) Calcium Level 9.0 mg/dL (8.5-10.1) Total Bilirubin 0.4 mg/dL (0.2-1.0) Aspartate Amino Transf (AST/SGOT) 25 U/L (15-37) Alanine Aminotransferase (ALT/SGPT) 20 U/L (16-63) Alkaline Phosphatase 98 U/L (46-116) Total Protein 7.5 g/dL (6.4-8.2) Albumin 3.4 g/dL (3.4-5.0) Albumin/Globulin Ratio 0.8 (1.0-1.7) Assessment/Plan Assessment/Plan 65 year old male with recent left femoral to popliteal bypass with cellulitis in his lower extremity. Arterial Ultrasound suggest patent bypass. I did order an ultrasound to evaluate for fluid collection in his calf. Infectious disease has been consulted. Recommend continue antibiotics. Patient is not currently n.p.o. therefore if surgical exploration is warranted this may need to be postponed until tomorrow. Will await results of the ultrasound. I did discuss history physical examination with Dr. Schwartz and he will see the patient make additional recommendations. Recommend patient continue his daily aspirin and Plavix. Patient seen and examined today, discussed above with ELIUD Verduzco. The duplex of his left leg is now back and it does suggest a large fluid collection in the medial calf over the area of significant erythema there is some concern for an abscess. Given this we will plan on I&D in the operating room tomorrow. ANGELIQUE NI APRN Apr 19, 2021 10:37 JACKELIN SCHWARTZ MD Apr 19, 2021 16:04
--- NOTE | 2021-04-19 10:56 | CONS ---
DATE OF CONSULTATION: 04/19/2021 REFERRING PHYSICIAN: Dr. Miranda. REASON FOR CONSULTATION: Left lower extremity cellulitis and history of recent femoral popliteal bypass. HISTORY OF PRESENT ILLNESS: A 65-year-old male with history of peripheral arterial disease presented to the ER on 04/18/2021 with complaints of left lower leg drainage, which he noticed a couple of days ago. The patient underwent a femoropopliteal bypass with nonreversed SV graft related to the arterial clot in the left leg with surgery on 03/23/2021. He did well postoperatively. He underwent a staple removal on 04/18/2021. He did well for about a week, but over the past 3 days, started having swelling, redness and yellowish straw-colored fluid. He denied any fevers, chills, nausea, vomiting, diarrhea, abdominal pain. He denies being on any antibiotics. He has received COVID vaccination. He was started on Zosyn. White count is normal. He remains afebrile. Vascular Surgery has been consulted. Arterial Doppler showed plaquing of the left leg arteries and associated monophasic waveforms of the distal superficial femoral artery to the popliteal artery and calf arteries indicative of peripheral vascular disease. There is no hemodynamically significant stenosis. The patient is awaiting nonvascular left lower extremity Doppler ultrasound by Vascular Surgery. PAST MEDICAL HISTORY: Peripheral arterial disease. PAST SURGICAL HISTORY: Tonsillectomy, left femoral popliteal bypass. FAMILY HISTORY: As per HPI. ALLERGIES: No known drug allergies. SOCIAL HISTORY: Former smoker, lives at home with his . CURRENT MEDICATIONS: Zosyn. Other medications reviewed in medication list. REVIEW OF SYSTEMS: Negative except for above in HPI. PHYSICAL EXAMINATION: VITAL SIGNS: Temperature 98.5, pulse 94, respiratory rate 20, blood pressure 155/74, oxygen saturation 98% on room air. GENERAL: Alert, oriented x 3 male sitting upright in chair in no acute distress. HEENT: Normocephalic, atraumatic. Anicteric. NECK: Supple, no JVD, no lymphadenopathy. LUNGS: Clear bilaterally. HEART: S1, S2. No murmurs. ABDOMEN: Soft, nontender, nondistended. EXTREMITIES: Left lower extremity, mild redness present. Recently had dressed wound, wound pictures noted. Thigh incision well healed. No cyanosis, no clubbing. DERMATOLOGIC: Warm, dry, no generalized rash except for above. NEUROLOGIC: Alert and oriented x 3, grossly nonfocal. PSYCHIATRIC: Calm and cooperative. LABORATORY DATA: WBC 8.5, hemoglobin 13.5, hematocrit 39.2, platelets 338. Sodium 133, potassium 3.9, chloride 95, bicarb 25, BUN 15, creatinine 1.0, lactate 1.2. LFTs normal. UA negative. IMAGIN. Doppler ultrasound arterial as above. 2. Non-vascular Doppler ultrasound pending at this time. IMPRESSION: 1. Left lower leg drainage from the wound just below the knee. Concern for possible seroma vs abscess with recent surgery 2. History of recent femoral popliteal bypass, left lower extremity on 03/23/2021. 3. Mild hyponatremia. RECOMMENDATIONS: 1. Follow up nonvascular left lower extremity ultrasound. 2. Vascular team following. Discussed with Doretha Shepard APRN. 3. Hold Zosyn for now as pt is afebrile, normal WBC to increase the increase the yield of cultures. Low threshold to restart Zosyn if pt has any systemic symptoms or hemodynamic instability. 4. Monitor labs and cultures. 5. Continue local wound care and dressing as directed. 6. Continue supportive care. Thank you for consulting Infectious Disease to participate in this patient's care. If you have any questions, do not hesitate to contact me. KHANG/KYLEE JENNINGS: Julio TID: [id number] MTDD
[2021-04-19 11:00] VITALS: BP 131/72
[2021-04-19] MEDS: CLOPIDOGREL BISULFATE 75 MG TABLET PO SCH (11:47)
[2021-04-19] MEDS: ASPIRIN CHEWABLE 81 MG TABLET. PO SCH (11:47)
[2021-04-19] MEDS: OMEPRAZOLE 20 MG TABLET PO SCH (11:47)
--- NOTE | 2021-04-19 11:56 | RAD ---
EXAM: Soft tissue ultrasound, left lower extremity. HISTORY: Recent vascular surgery. Concern for fluid collection. COMPARISON: None. FINDINGS: Sonographic assessment was performed at the incision site along the left groin, proximal th igh, distal thigh and proximal calf. There is a heterogeneous hypoechoic collection within the proxim al calf measuring 4.8 x 3.1 x 3.3 cm. No collection is appreciated at the other sites. IMPRESSION: 1. 4.8 x 3.3 cm heterogeneous collection within near the proximal calf incision, consistent with a he matoma or abscess. Correlate for evidence of infection. Electronically signed by: Amanda Lacy MD (04/19/2021 11:53 AM) [facility]
[2021-04-19 15:00] VITALS: BP 142/73
--- NOTE | 2021-04-19 18:06 | NUR ---
Wound/Ostomy Care Wound Type/Assessment: Wound care consult for lef leg cellulitis after a fem-pop dehisced incision. No other wounds noted on head to toe skin assessment. Wound assessed, cleansed and measured. Wound draining large amounts of serous drainage. Treatment Recommendations/Plan: Cleanse wound, pack with betadine soaked 1/4 packing gauze, cover with abd and kerlix, change daily and as needed if saturated. Education provided: pt educated on PU prevention and leg elevation to decrease swelling Offloading surface/device: pillows to elevate legs Recommended Referrals/Tests: n/a Discharge Recommendations for dressings: same as above, wound care will continue to follow up, follow vascular surgery recommendation if other orders are advise.
[2021-04-19 19:20] VITALS: BP 169/90
[2021-04-19] MEDS: ATORVASTATIN CALCIUM 10 MG TABLET. PO SCH (20:24)
[2021-04-19 23:04] VITALS: BP 144/83
[2021-04-20] VITALS (11 sets, daily range): BP systolic 130–154; BP diastolic 75–85
[2021-04-20] MEDS ORDERED: HYDROmorphone 2 MG/ML VIAL IVP PRN (06:00)
[2021-04-20] MEDS ORDERED: fentaNYL PF VIAL 100 MCG/2 ML VIAL IVP PRN ×2 (06:00)
[2021-04-20] MEDS ORDERED: MORPHINE SULFATE 2 MG/ML INJ. IVP PRN (06:00)
[2021-04-20] MEDS ORDERED: PROCHLORPERAZINE 10 MG/2 ML VIAL. IVP PRN (06:00)
[2021-04-20] MEDS ORDERED: IV RINGERS,LACTATED 1000ML 1,000 ML IV SCH (06:00)
[2021-04-20] MEDS: OMEPRAZOLE 20 MG TABLET PO SCH ×2 (07:30→17:49)
[2021-04-20] MEDS: ASPIRIN CHEWABLE 81 MG TABLET. PO SCH (09:00)
[2021-04-20] MEDS: CLOPIDOGREL BISULFATE 75 MG TABLET PO SCH (09:00)
[2021-04-20] MEDS: METOPROLOL TART IMMED RELEASE 50 MG TABLET. PO SCH ×2 (09:28→21:02)
[2021-04-20] MEDS ORDERED: ONDANSETRON PF 4 MG/2 ML VIAL. ONE (10:10)
[2021-04-20] MEDS ORDERED: DEXAMETHASONE SOD PHOS 4 MG/ML VIAL ONE (10:10)
[2021-04-20] MEDS ORDERED: PROPOFOL 10 MG/ML (20ML) VIAL. IV ONE (10:10)
[2021-04-20] MEDS ORDERED: LIDOCAINE 2% PF 5 ML VIAL. ONE ×3 (10:10→10:11)
--- NOTE | 2021-04-20 11:04 | PDOC ---
[employer] PROGRESS NOTE Date of Service DOS: DATE: 04/20/21 TIME: 11:02 Chief Complaint Chief Complaint Left lower extremity cellulitis with infected seroma versus hematoma Acute electrolyte derangementhyponatremia, hypochloremia due to volume depletion History of peripheral vascular disease status post left lower extremity femoropopliteal bypass Admit to hospital service for further management Vascular surgery consult ID consult Continue empiric IV antibiotics Pending ultrasound for determined if there is fluid collection underneath the incision site. Lovenox for DVT prophylaxis Protonix GI prophylaxis ADA diet Full code Discussed with RN and SW Disposition inpatient management as above Surrogate decision maker is History of Present Illness History of Present Illness 65 year old male who presents to the emergency department complaining of a left lower leg infection that he noticed getting worse over the past 3 days. Patient reports having a femoropopliteal bypass with nonreversed SV graft related to a arterial clot in the left leg with surgery on March 232020 here at [facility]. Patient noticed over the past 3 days that his leg was getting more red and started to drain yellowish straw-colored fluid. Patient describes his redness as if he put a red sock on his leg. Patient denies any pain to his lower extremity, denies feeling any coldness or any warm sensations. Patient denies any loss of sensation. Patient denies any fever or chills, denies chest pain or shortness of breath. Denies rashes of his skin. Patient states he is a patient of Dr. Su. Reports having his COVID-19 virus vaccination series completed second dose on December 06, [facility]. Patient denies any other physical complaints or physical concerns. 04/20/2021 No major events overnight. Ultrasound showed yesterday showed complex fluid collection of about 3 x 8 cm possible hematoma. On-call to the OR for I&D with vascular surgery today. Patient's chart, labs, images were reviewed and discussed with RN Vitals/I&O Vitals/I&O: Vital Signs Date Time Temp Pulse Resp B/P (MAP) Pulse Ox O2 Delivery O2 Flow Rate FiO2 04/20/21 10:33 97.1 81 18 171/84 97 Room Air 97.1 I & O 04/19/21 04/19/21 04/20/21 15:00 23:00 07:00 Intake Total 240 ml 240 ml Balance 240 ml 240 ml Labs Labs: Laboratory Tests Test 04/19/21 21:10 SARS-CoV-2 RNA (DOROTEO) Negative (Negative) SARS-CoV-2 Antigen (Rapid) Negative (NEGATIVE) Assessment and Plan Assessmemt and Plan Problems Medical Problems: (1) Left leg cellulitis Status: Acute Comment Review of Relevant I have reviewed the following items lane (where applicable) has been applied. Medications: Current Medications Medications (Trade) Dose Ordered Sig/Porfirio Route PRN Reason Start Time Stop Time Status Last Admin Dose Admin Aspirin (Aspirin Chewable) 81 mg DAILY PO 04/19/21 11:30 04/19/21 11:47 Clopidogrel Bisulfate (Plavix) 75 mg DAILY PO 04/19/21 11:30 04/19/21 11:47 Non-Formulary Medication (Omeprazole ) 20 mg DAILYAC PO 04/19/21 11:30 04/19/21 11:47 Justifications for Admission Other Justification RADHA ISABEL MD Apr 20, 2021 11:04
--- NOTE | 2021-04-20 11:25 | PDOC ---
Infectious Disease Note Subjective: Subjective Patient is off unit for procedure Vital Signs: Vital Signs Vital Signs Date Time Temp Pulse Resp B/P (MAP) Pulse Ox O2 Delivery O2 Flow Rate FiO2 04/20/21 10:33 97.1 81 18 171/84 97 Room Air 97.1 Physical Exam: PHYSICAL EXAM Medications: Inpatient Meds: Medications reviewed. Labs: Lab Laboratory Tests Test 04/19/21 21:10 SARS-CoV-2 RNA (DOROTEO) Negative (Negative) SARS-CoV-2 Antigen (Rapid) Negative (NEGATIVE) Objective: Assessment: 1. Left lower leg drainage from the wound just below the knee. Concern for possible seroma vs abscess with recent surgery 2. History of recent femoral popliteal bypass, left lower extremity on 03/23/2021. 3. Mild hyponatremia. Plan: Plan of Care Will restart empiric Zosyn and daptomycin Monitor labs and cultures. Continue local wound care and dressing as directed. Discussed with nursing staff DARCIE JORDAN MD Apr 20, 2021 11:25
[2021-04-20] MEDS ORDERED: fentaNYL PF VIAL 100 MCG/2 ML VIAL ONE (11:55)
[2021-04-20] MEDS ORDERED: ePHEDrine PF IN SALINE 50 MG/10 ML SYRINGE. IV ONE (12:18)
--- NOTE | 2021-04-20 12:37 | PDOC ---
BRIEF OPERATIVE NOTE Date: Apr 20, 2021 Pre-Op Diagnosis Left calf incisional dehiscence with fluid collection Post-Op Diagnosis same Procedure Performed Left calf incision and drainage, irrigation debridement of subcutaneou tissue and wound vac placement. Surgeon Dr. Saini Journeyman [employer] Angelique Ni,ZEFERINO Anesthesia Type: General Blood Loss minimal Specimens Obtained cultures left calf wound Findings bypass is patent and covered without exposure in wound bed Complications none Operative Note see dictated note ANGELIQEU NI RADIOISOTOPE PRODUCTION OPERATOR Apr 20, 2021 12:37
--- NOTE | 2021-04-20 13:06 | OP ---
DATE OF SURGERY: 04/20/2021 SURGEON: Lucia Saini MD CHEMICAL PRODUCTION MACHINE OPERATOR: Doretha Shepard, nurse practitioner PREOPERATIVE DIAGNOSIS: Recent left femoral to below knee popliteal artery bypass graft with dehiscence of his left calf distal incision and drainage with underlying necrotic tissue. POSTOPERATIVE DIAGNOSIS: Left calf incision dehiscence with underlying seroma and necrotic tissue. PROCEDURES PERFORMED: 1. Left medial calf debridement removing necrotic skin, subcutaneous tissue and old seroma type fluid from the cavity. Measurements after debridement were 13 cm in length x 3 cm in width x 5 cm in depth. 2. Left medial calf wound VAC dressing placement. ESTIMATED BLOOD LOSS: Approximately 5 mL. ANESTHESIA: General anesthesia. INDICATIONS: The patient is a 65-year-old male who recently underwent a left femoral to below knee popliteal artery vein bypass graft. He has developed dehiscence of his distal left medial calf incision with drainage and underlying necrotic tissue. Recommendations have been made for surgical debridement of the left calf wound and incision. Informed consent was obtained. His bypass graft in the left leg was patent by examination with a palpable pulse at the medial knee and by ultrasound study. DESCRIPTION OF PROCEDURE: The patient was brought to the operating room and placed on table in supine position. He received general anesthesia and monitored throughout the case by the anesthesiologist. His left groin and left leg circumferentially was prepped and draped by normal sterile fashion. The left medial calf incision and the distal aspect was dehisced. We opened this and exposed some underlying necrotic tissue and a seroma type cavity extending proximally within the wound. We did have to open the entire incision to open the entire cavity, we removed seroma type fluid along with necrotic subcutaneous tissue throughout the wound bed. Proximally within the wound, we used Doppler and the bypass vein graft was easily dopplered and it was patent. There was no exposure in the wound distal to this of the bypass graft. Therefore, we mobilized subcutaneous tissue at this proximal wound under the skin level. The subcutaneous tissue was brought together and this was able to cover the bypass graft. We irrigated the open wound with copious amounts of antibiotic solution. Hemostasis was gained with electrocautery. We used #2 Monocryl suture and approximated the subcutaneous tissue and the proximal wound to cover the vein bypass graft. It was completely covered with no exposure of the graft. We then placed a wound VAC sponge within the open wound sealed it to suction. The left groin incision was nearly healed. There was one small area of scab and a little bit of necrotic superficial subcutaneous tissue, which was debrided with a curette. There was no deep wounds or signs of infection. Aquacel was left over the left groin incision and a sterile gauze. He tolerated the surgery with no immediate complications. Doretha Shepard was scrubbed throughout the entire length of the case and for wound VAC dressing placement. SPECIMEN REMOVED: Cultures were sent from the left medial calf wound. GABRIELA DR: Kan TID: [id number]
[2021-04-20] MEDS: DAPTOmycin (GENERIC) IVPB 560 MG in IV NORMAL SALINE 50ML 50 ML IV SCH (16:05)
[2021-04-20] MEDS: PIPERACILLIN/TAZOBACTAM 3.375 GM in IV NORMAL SALINE 50ML 50 ML IV SCH (17:47)
[2021-04-20] MEDS: ATORVASTATIN CALCIUM 10 MG TABLET. PO SCH (21:02)
[2021-04-21] MEDS: PIPERACILLIN/TAZOBACTAM 3.375 GM in IV NORMAL SALINE 50ML 50 ML IV SCH ×4 (00:35→18:00)
[2021-04-21 03:00] VITALS: BP 123/67
[2021-04-21 07:00] VITALS: BP 157/88
--- NOTE | 2021-04-21 08:08 | PDOC ---
Infectious Disease Note Subjective: Subjective Patient without complaints Postop site pain is under control Denies any fever, nausea, vomiting, diarrhea, abdominal pain, shortness of breath Vital Signs: Vital Signs Vital Signs Date Time Temp Pulse Resp B/P (MAP) Pulse Ox O2 Delivery O2 Flow Rate FiO2 04/21/21 03:00 98.1 80 16 123/67 (85) 98 Room Air 98.1 04/20/21 12:45 6 Physical Exam: PHYSICAL EXAM GENERAL: Alert, oriented x 3 male in no acute distress. HEENT: Normocephalic, atraumatic. Anicteric. NECK: Supple, no JVD, no lymphadenopathy. LUNGS: Clear bilaterally. HEART: S1, S2. No murmurs. ABDOMEN: Soft, nontender, nondistended. EXTREMITIES: Left lower extremity dressing in place, not taken down DERMATOLOGIC: Warm, dry, no generalized rash except for above. NEUROLOGIC: Alert and oriented x 3, grossly nonfocal. PSYCHIATRIC: Calm and cooperative. Medications: Inpatient Meds: Medications reviewed. Objective: Assessment: 1. Left lower leg drainage from the wound just below the knee. s/p I and D on April 20 cult pending 2. History of recent femoral popliteal bypass, left lower extremity on 03/23/2021. 3. Mild hyponatremia. Plan: Plan of Care Cont Zosyn and daptomycin Monitor labs and cultures including intraop cults Continue local wound care and dressing as directed. Discussed with nursing staff DARCIE JORDAN MD Apr 21, 2021 08:08
[2021-04-21] MEDS: ASPIRIN CHEWABLE 81 MG TABLET. PO SCH (10:08)
[2021-04-21] MEDS: CLOPIDOGREL BISULFATE 75 MG TABLET PO SCH (10:08)
[2021-04-21] MEDS: METOPROLOL TART IMMED RELEASE 50 MG TABLET. PO SCH ×2 (10:09→19:40)
[2021-04-21] MEDS: OMEPRAZOLE 20 MG TABLET PO SCH (10:09)
[2021-04-21 11:00] VITALS: BP 165/87
--- NOTE | 2021-04-21 11:39 | PDOC ---
[employer] PROGRESS NOTE Date of Service DOS: DATE: 04/21/21 TIME: 11:30 Chief Complaint Chief Complaint Left lower extremity cellulitis with infected seroma versus hematoma Acute electrolyte derangementhyponatremia, hypochloremia due to volume depletion History of peripheral vascular disease status post left lower extremity femoropopliteal bypass History of Present Illness History of Present Illness 04/21/2021 Pt seen and examined Pt was sitting up comfortably in bed. He was taking notes concerning his wound VAC D/W RN Chart reviewed Discussed case with Dr. Saini Cultures were negative 65 year old male who presents to the emergency department complaining of a left lower leg infection that he noticed getting worse over the past 3 days. Patient reports having a femoropopliteal bypass with nonreversed SV graft related to a arterial clot in the left leg with surgery on March 23[address] [facility]. Patient noticed over the past 3 days that his leg was getting more red and started to drain yellowish straw-colored fluid. Patient describes his redness as if he put a red sock on his leg. Patient denies any pain to his lower extremity, denies feeling any coldness or any warm sensations. Patient denies any loss of sensation. Patient denies any fever or chills, denies chest pain or shortness of breath. Denies rashes of his skin. Patient states he is a patient of Dr. Su. Reports having his COVID-19 virus vaccination series completed second dose on December 06, [employer]. Patient denies any other physical complaints or physical concerns. 04/20/2021 No major events overnight. Ultrasound showed yesterday showed complex fluid collection of about 3 x 8 cm possible hematoma. On-call to the OR for I&D with vascular surgery today. Patient's chart, labs, images were reviewed and discussed with RN Vitals/I&O Vitals/I&O: Vital Signs Date Time Temp Pulse Resp B/P (MAP) Pulse Ox O2 Delivery O2 Flow Rate FiO2 04/21/21 10:09 77 157/88 04/21/21 07:00 97.8 16 98 Room Air 97.8 04/20/21 12:45 6 I & O 04/20/21 04/20/21 04/21/21 15:00 23:00 07:00 Intake Total 700 ml Output Total 5 ml 1475 ml 1500 ml Balance 695 ml -1475 ml -1500 ml Physical Exam Physical Exam: GENERAL: Alert, oriented x 3 male in no acute distress. HEENT: Normocephalic, atraumatic. Anicteric. NECK: Supple, no JVD, no lymphadenopathy. LUNGS: Clear bilaterally. HEART: S1, S2. No murmurs. ABDOMEN: Soft, nontender, nondistended. EXTREMITIES: Left lower extremity dressing in place, not taken down DERMATOLOGIC: Warm, dry, no generalized rash except for above. NEUROLOGIC: Alert and oriented x 3, grossly nonfocal. PSYCHIATRIC: Calm and cooperative. General: Alert Lungs: Clear Extremities: No clubbing Review of Systems Review of Systems: 04/21/21 Pt denies chest pain Pt denies N/V Assessment and Plan Assessmemt and Plan 04/21/2021 Assessment: Left Lower Leg Cellulitis Hx of Popliteal bypass Plan: Possible D/C on Friday DVT prophylaxis Full Code Discussed case with Dr. Saini Continue wound care and IV Abx (Zosyn and Daptomycin) Problems Medical Problems: (1) Left leg cellulitis Status: Acute Admit to hospital service for further management Vascular surgery consult ID consult Continue empiric IV antibiotics Pending ultrasound for determined if there is fluid collection underneath the incision site. Lovenox for DVT prophylaxis Protonix GI prophylaxis ADA diet Full code Discussed with RN and SW Disposition inpatient management as above Surrogate decision maker is Comment Review of Relevant I have reviewed the following items lane (where applicable) has been applied. Medications: Current Medications Medications (Trade) Dose Ordered Sig/Porfirio Route PRN Reason Start Time Stop Time Status Last Admin Dose Admin Piperacillin Sod/ Tazobactam Sod 3.375 gm/Sodium Chloride 50 ml @ 100 mls/hr Q6HRS IV 04/20/21 18:00 04/21/21 05:59 Daptomycin 560 mg/ Sodium Chloride 50 ml @ 100 mls/hr Q24H IV 04/20/21 15:00 04/20/21 16:05 Justifications for Admission Other Justification ISIS JOHNSON III DO Apr 21, 2021 11:38
[2021-04-21 15:00] VITALS: BP 151/75
[2021-04-21] MEDS: LACTOBACILLUS RHAMNOSUS GG 1 CAPSULE. PO SCH ×2 (15:32→19:40)
[2021-04-21] MEDS: DAPTOmycin (GENERIC) IVPB 560 MG in IV NORMAL SALINE 50ML 50 ML IV SCH (15:33)
[2021-04-21 19:15] VITALS: BP 147/77
[2021-04-21] MEDS: ATORVASTATIN CALCIUM 10 MG TABLET. PO SCH (19:40)
[2021-04-21 23:00] VITALS: BP 127/77
[2021-04-22] MEDS: PIPERACILLIN/TAZOBACTAM 3.375 GM in IV NORMAL SALINE 50ML 50 ML IV SCH ×5 (00:02→23:32)
[2021-04-22 02:53] VITALS: BP 112/76
[2021-04-22 07:00] VITALS: BP 148/82
[2021-04-22] MEDS: OMEPRAZOLE 20 MG TABLET PO SCH (07:49)
[2021-04-22] MEDS: ASPIRIN CHEWABLE 81 MG TABLET. PO SCH (07:49)
[2021-04-22] MEDS: CLOPIDOGREL BISULFATE 75 MG TABLET PO SCH (07:49)
[2021-04-22] MEDS: METOPROLOL TART IMMED RELEASE 50 MG TABLET. PO SCH ×2 (07:50→20:45)
[2021-04-22] MEDS: LACTOBACILLUS RHAMNOSUS GG 1 CAPSULE. PO SCH ×2 (07:50→20:45)
--- NOTE | 2021-04-22 08:23 | PDOC ---
Infectious Disease Note Subjective: Subjective Patient without complaints Postop site pain is under control Denies any fever, nausea, vomiting, diarrhea, abdominal pain, shortness of breath Vital Signs: Vital Signs Vital Signs Date Time Temp Pulse Resp B/P (MAP) Pulse Ox O2 Delivery O2 Flow Rate FiO2 04/22/21 07:50 74 148/72 04/22/21 02:53 97.6 18 97 Room Air 97.6 Physical Exam: PHYSICAL EXAM GENERAL: Alert, oriented x 3 male in no acute distress. HEENT: Normocephalic, atraumatic. Anicteric. NECK: Supple, no JVD, no lymphadenopathy. LUNGS: Clear bilaterally. HEART: S1, S2. No murmurs. ABDOMEN: Soft, nontender, nondistended. EXTREMITIES: Left lower extremity dressing in place, not taken down DERMATOLOGIC: Warm, dry, no generalized rash except for above. NEUROLOGIC: Alert and oriented x 3, grossly nonfocal. PSYCHIATRIC: Calm and cooperative. Medications: Inpatient Meds: Medications reviewed. Objective: Assessment: 1. Left calf incision dehiscence with underlying seroma and necrotic tissue. April 20, 2021 Status post 1. Left medial calf debridement removing necrotic skin, subcutaneous tissue and old seroma type fluid from the cavity. S/P I and D on April 20 cult pending 2. History of recent femoral popliteal bypass, left lower extremity on 03/23/2021. 3. Mild hyponatremia. Plan: Plan of Care Cont Zosyn and daptomycin Monitor labs and cultures including intraop cults Continue local wound care and dressing as directed. Discussed with nursing staff DARCIE JORDAN MD Apr 22, 2021 08:23
--- NOTE | 2021-04-22 09:40 | PDOC ---
[employer] PROGRESS NOTE Date of Service DOS: DATE: 04/22/21 TIME: 09:28 Chief Complaint Chief Complaint Left lower extremity cellulitis with infected seroma versus hematoma Acute electrolyte derangementhyponatremia, hypochloremia due to volume depletion History of peripheral vascular disease status post left lower extremity femoropopliteal bypass History of Present Illness History of Present Illness 04/22/2021 Pt seen and examined Pt was sitting comfortably in chair. He says he is ready to go home D/W RN Chart reviewed 04/21/2021 Pt seen and examined Pt was sitting up comfortably in bed. He was taking notes concerning his wound VAC D/W RN Chart reviewed Discussed case with Dr. Saini Cultures were negative 65 year old male who presents to the emergency department complaining of a left lower leg infection that he noticed getting worse over the past 3 days. Patient reports having a femoropopliteal bypass with nonreversed SV graft related to a arterial clot in the left leg with surgery on March 232020 here at [facility]. Patient noticed over the past 3 days that his leg was getting more red and started to drain yellowish straw-colored fluid. Patient describes his redness as if he put a red sock on his leg. Patient denies any pain to his lower extremity, denies feeling any coldness or any warm sensations. Patient denies any loss of sensation. Patient denies any fever or chills, denies chest pain or shortness of breath. Denies rashes of his skin. Patient states he is a patient of Dr. Su. Reports having his COVID-19 virus vaccination series completed second dose on December 06, [employer]. Patient denies any other physical complaints or physical concerns. 04/20/2021 No major events overnight. Ultrasound showed yesterday showed complex fluid collection of about 3 x 8 cm possible hematoma. On-call to the OR for I&D with vascular surgery today. Patient's chart, labs, images were reviewed and discussed with RN Vitals/I&O Vitals/I&O: Vital Signs Date Time Temp Pulse Resp B/P (MAP) Pulse Ox O2 Delivery O2 Flow Rate FiO2 04/22/21 07:50 74 148/72 04/22/21 07:00 98.3 16 97 Room Air 98.3 I & O 04/21/21 04/21/21 04/22/21 15:00 23:00 07:00 Intake Total 710 ml 370 ml Output Total 300 ml 2200 ml Balance 710 ml 70 ml -2200 ml Physical Exam Physical Exam: GENERAL: Alert, oriented x 3 male in no acute distress. HEENT: Normocephalic, atraumatic. Anicteric. NECK: Supple, no JVD, no lymphadenopathy. LUNGS: Clear bilaterally. HEART: S1, S2. No murmurs. ABDOMEN: Soft, nontender, nondistended. EXTREMITIES: Left lower extremity dressing in place, not taken down DERMATOLOGIC: Warm, dry, no generalized rash except for above. NEUROLOGIC: Alert and oriented x 3, grossly nonfocal. PSYCHIATRIC: Calm and cooperative. General: Alert, Cooperative, No acute distress Lungs: Clear Extremities: No clubbing Review of Systems Review of Systems: Pt denies N/V Pt denies chest pain Assessment and Plan Assessmemt and Plan 04/22/2021 Assessment: Left lower extremity cellulitis Plan: Continue Zosyn and Daptomycin Trend lands and cultures Continue Wound Care Possible D/C after wound care vac change on Friday PTOT DVT prophylaxis Home Rx Problems Medical Problems: (1) Left leg cellulitis Status: Acute Comment Review of Relevant I have reviewed the following items lane (where applicable) has been applied. Medications: Current Medications Medications (Trade) Dose Ordered Sig/Porfirio Route PRN Reason Start Time Stop Time Status Last Admin Dose Admin Lactobacillus Rhamnosus (Culturelle) 1 cap BID PO 04/21/21 14:00 04/22/21 07:50 Justifications for Admission Other Justification ISIS JOHNSON III DO Apr 22, 2021 09:40
[2021-04-22 11:00] VITALS: BP 132/66
[2021-04-22 15:00] VITALS: BP 138/77
[2021-04-22] MEDS: DAPTOmycin (GENERIC) IVPB 560 MG in IV NORMAL SALINE 50ML 50 ML IV SCH (15:52)
[2021-04-22] MEDS: MULTIVITAMIN with MINERAL TABLET. PO SCH (16:36)
[2021-04-22] MEDS: ASCORBIC ACID 500 MG TABLET PO SCH (16:36)
[2021-04-22 19:00] VITALS: BP 147/74
[2021-04-22] MEDS: ATORVASTATIN CALCIUM 10 MG TABLET. PO SCH (20:45)
[2021-04-22 23:00] VITALS: BP 136/81
[2021-04-23 02:56] VITALS: BP 129/81
[2021-04-23] MEDS: PIPERACILLIN/TAZOBACTAM 3.375 GM in IV NORMAL SALINE 50ML 50 ML IV SCH (05:36)
[2021-04-23 07:00] VITALS: BP 145/87
--- NOTE | 2021-04-23 08:27 | PDOC ---
PROGRESS NOTES Date of Service: DATE: 04/23/21 TIME: 08:27 Chief Complaint Chief Complaint Left lower extremity cellulitis with infected seroma versus hematoma Acute electrolyte derangementhyponatremia, hypochloremia due to volume depletion History of peripheral vascular disease status post left lower extremity fem oropopliteal bypass History of Present Illness History of Present Illness 04/23/2021 4.8 x 3.3 cm heterogeneous collection within near the proximal calf incision, consistent with a hematoma or abscess. Correlate for evidence of infection. seen and examined Pt was sitting comfortably in chair. He says he is ready to go home D/W RN Chart reviewed femoropopliteal bypass with nonreversed SV graft related to a arterial clot in the left leg with surgery on March 232020/ [facility]. Cont Zosyn and daptomycin change Zosyn and daptomycin to augmentin Monitor labs and cultures including intraop cults Continue local wound care and dressing as directed. ok to d/c home PER ID 8 labs and cultures including intraop cults D/C PLANNING V33 MIN 04/22/2021 Pt seen and examined Pt was sitting comfortably in chair. He says he is ready to go home D/W RN Chart reviewed 04/21/2021 Pt seen and examined Pt was sitting up comfortably in bed. He was taking notes concerning his wound VAC D/W RN Chart reviewed Discussed case with Dr. Saini Cultures were negative 65 year old male who presents to the emergency department complaining of a left lower leg infection that he noticed getting worse over the past 3 days. Patient reports having a femoropopliteal bypass with nonreversed SV graft related to a arterial clot in the left leg with surgery on March 232020 here at [facility]. Patient noticed over the past 3 days that his leg was getting more red and started to drain yellowish straw-colored fluid. Patient describes his redness as if he put a red sock on his leg. Patient denies any pain to his lower extremity, denies feeling any coldness or any warm sensations. Patient denies any loss of sensation. Patient denies any fever or chills, denies chest pain or shortness of breath. Denies rashes of his skin. Patient states he is a patient of Dr. Su. Reports having his COVID-19 virus vaccination series completed second dose on December 06, [employer] brand. Alivia marie denies any other physical complaints or physical concerns. 04/20/2021 No major events overnight. Ultrasound showed yesterday showed complex fluid collection of about 3 x 8 cm possible hematoma. On-call to the OR for I&D with vascular surgery today. Patient's chart, labs, images were reviewed and discussed with RN Vitals Vitals Vital Signs Date Time Temp Pulse Resp B/P (MAP) Pulse Ox O2 Delivery O2 Flow Rate FiO2 04/23/21 07:00 98.4 74 18 145/87 (106) 97 Room Air 98.4 Physical Exam Physical Exam GENERAL: Alert, oriented x 3 male in no acute distress. HEENT: Normocephalic, atraumatic. Anicteric. NECK: Supple, no JVD, no lymphadenopathy. LUNGS: Clear bilaterally. HEART: S1, S2. No murmurs. ABDOMEN: Soft, nontender, nondistended. EXTREMITIES: Left lower extremity dressing in place, not taken down DERMATOLOGIC: Warm, dry, no generalized rash except for above. NEUROLOGIC: Alert and oriented x 3, grossly nonfocal. PSYCHIATRIC: Calm and cooperative. General: Alert, Oriented X3, Cooperative, No acute distress Lungs: Clear Abdomen: Normal bowel sounds, Soft, No tenderness Extremities: No clubbing, No cyanosis, No edema Labs LABS It helps to think and talk about your own wishes for healthcare in case youre ever not able to tell your loved ones or healthcare team what your wishes are. If you became really sick tomorrow, would your loved ones or healthcare team know what your wishes were? Here are some examples of different sets of goals and health care directives for your conversations: My wish is to use all medical therapies including resuscitation (such as CPR) and artificial life- sustaining treatments (such as machines and medicine) in an intensive care unit, to keep me alive if at all possible. My wish is to live as long as possible, but I dont want attempts to bring me back to life if my heart and breathing stop. I would like full medical care but without using resuscitation or artificial life-sustaining intensive treatments, if these are unlikely to make me live longer or restore me to a certain quality of life. I will accept treatments that try to fix medical problems, but if Im not getting better or going to have a certain quality of life, I would want to switch to focusing only on my comfort and letting my happen naturally. My wish is for healthcare to focus on my comfort and lessen suffering. I would like medical care that focuses only on my quality of life and that allows me to naturally. Consider: What does a good quality of life mean for me? For many people, it is the ability to live independently and tell their own story. I may define it differently. Under what circumstances would I not want to be kept alive by medical treatments, resuscitation, or intensive care? What kind of changes to my health or life might make me change my mind? If I clearly am facing the last chapter of my life, how do I want the story to end? Who do I want to speak for me if I cant speak for myself? Do they understand my preferences? Are they willing to assume the role of my Durable Power of Charge Coordinator? Can I change my Goals of Care Designation? Yes, your Goals of Care Designation can be changed at any time. It should be reviewed if: your health condition changes your circumstances change (such as new understanding) you are transferred or admitted to another healthcare setting dpoa review, to pt portal 19 min and question review PATIENT: GRADY MCDONALD CACCOUNT: [id number] : 1955 LOCATION: [address] [place] [address] AGE: 65 SEX: M EXAM STATUS: ADM IN ORD. PHYSICIAN: ANGELIQUE NI APRN REASON: evaluate for fluid collection groin, thigh and calf around graft incisons PROCEDURE: EXT NON VASC LEFT EXAM: Soft tissue ultrasound, left lower extremity. HISTORY: Recent vascular surgery. Concern for fluid collection. COMPARISON: None. FINDINGS: Sonographic assessment was performed at the incision site along the left groin, proximal thigh, distal thigh and proximal calf. There is a heterogeneous hypoechoic collection within the proximal calf measuring 4.8 x 3.1 x 3.3 cm. No collection is appreciated at the other sites. IMPRESSION: 1. 4.8 x 3.3 cm heterogeneous collection within near the proximal calf incision, consistent with a hematoma or abscess. Correlate for evidence of infection. Electronically signed by: Amanda Lacy MD (04/19/2021 11:53 AM) [facility] DICTATED and SIGNED BY: LOLA LACY MD DATE: 04/19/21 [id number] 0 Assessment and Plan Assessmemt and Plan Problems Medical Problems: (1) Left leg cellulitis Status: Acute Comment Review of Relevant I have reviewed the following items lane (where applicable) has been applied. Labs Microbiology 04/20/21 Gram Stain - Final, Resulted 04/20/21 Aerobic and Anaerobic Culture - Preliminary, Resulted 04/18/21 Blood Culture - Preliminary, Resulted NO GROWTH AFTER 4 DAYS Medications Current Medications Piperacillin Sod/ Tazobactam Sod (Zosyn Per Pharmacy) 1 each PRN DAILY PRN MC SEE COMMENTS; Start 04/18/21 at 18:00; Stop 04/19/21 at 09:42; Status DC Piperacillin Sod/ Tazobactam Sod 3.375 gm/Sodium Chloride 50 ml @ 100 mls/hr 1X ONCE IV Last administered on 04/18/21at 18:29; Start 04/18/21 at 18:15; Stop 04/18/21 at 18:44; Status DC Piperacillin Sod/ Tazobactam Sod 3.375 gm/Sodium Chloride 50 ml @ 100 mls/hr Q6HRS IV Last administered on 04/19/21at 05:39; Start 04/19/21 at 00:00; Stop 04/19/21 at 09:42; Status DC Acetaminophen (Tylenol) 650 mg PRN Q6HRS PRN PO MILD PAIN / TEMP > 100.3'F; Start 04/18/21 at 22:45 Acetaminophen/ Hydrocodone Bitart (Lortab 5/325) 1 tab PRN Q4HRS PRN PO MODERATE PAIN 4-6; Start 04/18/21 at 22:45 Atorvastatin Calcium (Lipitor) 10 mg HS PO Last administered on 04/22/21at 20:45; Start 04/18/21 at 23:00 Metoprolol Tartrate (Lopressor) 50 mg BID PO Last administered on 04/22/21at 20:45; Start 04/18/21 at 23:00 Aspirin (Aspirin Chewable) 81 mg DAILY PO Last administered on 04/22/21at 07:49; Start 04/19/21 at 11:30 Clopidogrel Bisulfate (Plavix) 75 mg DAILY PO Last administered on 04/22/21at 07:49; Start 04/19/21 at 11:30 Non-Formulary Medication (Omeprazole ) 20 mg DAILYAC PO Last administered on 04/22/21at 07:49; Start 04/19/21 at 11:30 Fentanyl Citrate (Fentanyl 2ml Vial) 25 mcg PRN Q5MIN PRN IVP MILD PAIN 1-3; Start 04/20/21 at 06:00; Stop 04/20/21 at 19:00; Status DC Fentanyl Citrate (Fentanyl 2ml Vial) 50 mcg PRN Q5MIN PRN IVP MODERATE PAIN 4- 6; Start 04/20/21 at 06:00; Stop 04/20/21 at 19:00; Status DC Morphine Sulfate (Morphine Sulfate) 1 mg PRN Q10MIN PRN IVP SEVERE PAIN 7-10; Start 04/20/21 at 06:00; Stop 04/20/21 at 19:00; Status DC Ringer's Solution 1,000 ml @ 30 mls/hr Q24H IV Last administered on 04/20/21at 10:00; Start 04/20/21 at 06:00; Stop 04/20/21 at 17:59; Status DC Hydromorphone HCl (Dilaudid) 0.5 mg PRN Q10MIN PRN IVP SEVERE PAIN 7-10, 2nd CHOICE; Start 04/20/21 at 06:00; Stop 04/20/21 at 19:00; Status DC Prochlorperazine Edisylate (Compazine) 5 mg PACU PRN PRN IVP NAUSEA, MRX1; Start 04/20/21 at 06:00; Stop 04/20/21 at 19:00; Status DC Dexamethasone Sodium Phosphate (Decadron) 4 mg STK-MED ONCE .ROUTE ; Start 04/20/21 at 10:10; Stop 04/20/21 at 10:10; Status DC Propofol (Diprivan) 200 mg STK-MED ONCE IV ; Start 04/20/21 at 10:10; Stop 04/20/21 at 10:10; Status DC Lidocaine HCl (Lidocaine Pf 2% Vial) 5 ml STK-MED ONCE .ROUTE ; Start 04/20/21 at 10:10; Stop 04/20/21 at 10:10; Status DC Lidocaine HCl (Lidocaine Pf 2% Vial) 5 ml STK-MED ONCE .ROUTE ; Start 04/20/21 at 10:10; Stop 04/20/21 at 10:10; Status DC Ondansetron HCl (Zofran) 4 mg STK-MED ONCE .ROUTE ; Start 04/20/21 at 10:10; Stop 04/20/21 at 10:10; Status DC Lidocaine HCl (Lidocaine Pf 2% Vial) 5 ml STK-MED ONCE .ROUTE ; Start 04/20/21 at 10:11; Stop 04/20/21 at 10:11; Status DC Cefazolin Sodium 1 gm/Sodium Chloride 500 ml @ 500 mls/hr 1X ONCE IRR Last administered on 04/20/21at 11:59; Start 04/20/21 at 11:30; Stop 04/20/21 at 12:29; Status DC Fentanyl Citrate (Fentanyl 2ml Vial) 100 mcg STK-MED ONCE .ROUTE ; Start 04/20/21 at 11:55; Stop 04/20/21 at 11:55; Status DC Piperacillin Sod/ Tazobactam Sod 3.375 gm/Sodium Chloride 50 ml @ 100 mls/hr Q6HRS IV Last administered on 04/23/21at 05:36; Start 04/20/21 at 18:00 Daptomycin 560 mg/ Sodium Chloride 50 ml @ 100 mls/hr Q24H IV Last administered on 04/22/21at 15:52; Start 04/20/21 at 15:00 Ephedrine Sulfate (ePHEDrine PF IN SALINE SYRINGE) 50 mg STK-MED ONCE IV ; Start 04/20/21 at 12:18; Stop 04/20/21 at 12:18; Status DC Lactobacillus Rhamnosus (Culturelle) 1 cap BID PO Last administered on 04/22/21at 20:45; Start 04/21/21 at 14:00 Multivitamins (Thera M Plus) 1 tab DAILY PO Last administered on 04/22/21at 16:36; Start 04/22/21 at 17:00 Ascorbic Acid (Vitamin C) 500 mg DAILY PO Last administered on 04/22/21at 16:36; Start 04/22/21 at 17:00 Active Scripts Active Reported Clopidogrel (Clopidogrel Bisulfate) 75 Mg Tablet 75 Mg PO DAILY Omeprazole 20 Mg Capsule.dr 20 Mg PO DAILY Metoprolol Tartrate 50 Mg Tablet 50 Mg PO BID Lisinopril 20 Mg Tablet 20 Mg PO DAILY Atorvastatin Calcium 10 Mg Tablet 10 Mg PO HS Aspirin 81 Mg Tab.chew 81 Mg PO DAILY Amlodipine Besylate 10 Mg Tablet 10 Mg PO DAILY Vitals/I & O Vital Sign - Last 24 Hours 04/22/21 04/22/21 04/22/21 04/22/21 11:00 15:00 19:00 20:00 Temp 97.6 98.0 98.6 97.6 98.0 98.6 Pulse 67 74 74 Resp 16 16 18 B/P (MAP) 132/66 (88) 138/77 (97) 147/74 (98) Pulse Ox 98 96 97 O2 Delivery Room Air Room Air Room Air Room Air 04/22/21 04/22/21 04/23/21 04/23/21 20:45 23:00 02:56 07:00 Temp 97.5 98.0 98.4 97.5 98.0 98.4 Pulse 74 74 79 74 Resp 18 18 18 B/P (MAP) 147/74 136/81 (99) 129/81 (97) 145/87 (106) Pulse Ox 96 98 97 O2 Delivery Room Air Room Air Room Air Intake and Output 04/22/21 04/22/21 04/23/21 15:00 23:00 07:00 Output Total 500 ml 1950 ml Balance -500 ml -1950 ml Justicifation of Admission Dx: Justifications for Admission: Justification of Admission Dx: Yes HAYDER JACKSON MD Apr 23, 2021 08:27
--- NOTE | 2021-04-23 08:55 | PDOC ---
Infectious Disease Note Subjective Subjective Patient without complaints Postop site pain is under control Denies any fever, nausea, vomiting, diarrhea, abdominal pain, shortness of breath ROS ROS as above Vital Sign Vital Signs Vital Signs Date Time Temp Pulse Resp B/P (MAP) Pulse Ox O2 Delivery O2 Flow Rate FiO2 04/23/21 07:00 98.4 74 18 145/87 (106) 97 Room Air 98.4 Physical Exam PHYSICAL EXAM GENERAL: Alert, oriented x 3 male in no acute distress. HEENT: Normocephalic, atraumatic. Anicteric. NECK: Supple, no JVD, no lymphadenopathy. LUNGS: Clear bilaterally. HEART: S1, S2. No murmurs. ABDOMEN: Soft, nontender, nondistended. EXTREMITIES: Left lower extremity wound seen clean , healthy granulation DERMATOLOGIC: Warm, dry, no generalized rash except for above.,, NEUROLOGIC: Alert and oriented x 3, grossly nonfocal. PSYCHIATRIC: Calm and cooperative. Labs Micro culture neg Objective Assessment 1. Left calf incision dehiscence with underlying seroma and necrotic tissue. April 20, 2021 Status post 1. Left medial calf debridement removing necrotic skin, subcutaneous tissue and old seroma type fluid from the cavity. S/P I and D on April 20 cult pending 2. History of recent femoral popliteal bypass, left lower extremity on 03/23/2021. 3. Mild hyponatremia. Plan Plan of Care change Zosyn and daptomycin to augmentin Monitor labs and cultures including intraop cults Continue local wound care and dressing as directed. ok to d/c home Discussed with nursing staff ANDIE JORDAN MD Apr 23, 2021 08:55
[2021-04-23] MEDS ORDERED: AMOXICILLIN/K CLAV 875/125MG TABLET. PO SCH (09:00)
[2021-04-23] MEDS: ASCORBIC ACID 500 MG TABLET PO SCH (09:00)
[2021-04-23] MEDS: MULTIVITAMIN with MINERAL TABLET. PO SCH (09:49)
[2021-04-23] MEDS: ASPIRIN CHEWABLE 81 MG TABLET. PO SCH (09:49)
[2021-04-23] MEDS: CLOPIDOGREL BISULFATE 75 MG TABLET PO SCH (09:49)
[2021-04-23] MEDS: METOPROLOL TART IMMED RELEASE 50 MG TABLET. PO SCH (09:49)
[2021-04-23] MEDS: LACTOBACILLUS RHAMNOSUS GG 1 CAPSULE. PO SCH (09:49)
[2021-04-23] MEDS: OMEPRAZOLE 20 MG TABLET PO SCH (09:50)
--- NOTE | 2021-04-23 10:26 | PDOC3 ---
Discharge Summary Date of Admission: Apr 18, 2021 Date of Discharge: Apr 23, 2021 Follow-Up: 1-2 days Admitting Diagnosis comment: Chief Complaint Left lower extremity cellulitis with infected seroma versus hematoma Acute electrolyte derangementhyponatremia, hypochloremia due to volume depletion History of peripheral vascular disease status post left lower extremity femoropo pliteal bypass DISCHARGE DX COMPLICATIONS // NONE D/C DIET HEART HEALTHY, REDUSE ALCOHOL INTAKE CONSULTS ID, VASCULAR SURGERY PROCEDURES = SEX: M STATUS: ADM IN LOCATION: [address] [place] [address] DATE OF SURGERY: 04/20/2021 SURGEON: Lucia Saini MD ASSEMBLER [employer]: Doretha Shepard, nurse practitioner PREOPERATIVE DIAGNOSIS: Recent left femoral to below knee popliteal artery bypass graft with dehiscence of his left calf distal incision and drainage with underlying necrotic tissue. POSTOPERATIVE DIAGNOSIS: Left calf incision dehiscence with underlying seroma and necrotic tissue. PROCEDURES PERFORMED: 1. Left medial calf debridement removing necrotic skin, subcutaneous tissue and old seroma type fluid from the cavity. Measurements after debridement were 13 cm in length x 3 cm in width x 5 cm in depth. 2. Left medial calf wound VAC dressing placement. ESTIMATED BLOOD LOSS: Approximately 5 mL. ANESTHESIA: General anesthesia. INDICATIONS: The patient is a 65-year-old male who recently underwent a left femoral to below knee popliteal artery vein bypass graft. He has developed dehiscence of his distal left medial calf incision with drainage and underlying necrotic tissue. Recommendations have been made for surgical debridement of the left calf wound and incision. Informed consent was obtained. His bypass graft in the left leg was patent by examination with a palpable pulse at the medial knee and by ultrasound study. HOSPITAL COURSE 04/23/2021 4.8 x 3.3 cm heterogeneous collection within near the proximal calf incision, consistent with a hematoma or abscess. // evidence of infection. seen and examined Pt was sitting comfortably in chair. He says he is ready to go home D/W RN Chart reviewed femoropopliteal bypass with nonreversed SV graft related to a arterial clot in the left leg with surgery on March 232020/ [facility]. Cont Zosyn and daptomycin change Zosyn and daptomycin to augmentin Monitor labs and cultures including intraop cults Continue local wound care and dressing as directed. ok to d/c home PER ID 8- labs and cultures including intraop cults D/C PLANNING 33 MIN 04/22/2021 Pt seen and examined Pt was sitting comfortably in chair. He says he is ready to go home D/W RN Chart reviewed 04/21/2021 Pt seen and examined Pt was sitting up comfortably in bed.DISCUSSION concerning his wound VAC D/W RN Chart reviewed Cultures were negative 65 year old male who presents to the emergency department complaining of a left lower leg infection that he noticed getting worse over the past 3 days. Patient reports having a femoropopliteal bypass with nonreversed SV graft related to a arterial clot in the left leg with surgery on March 232020 here at [facility]. Patient noticed over the past 3 days that his leg was getting more red and started to drain yellowish straw-colored fluid. Patient describes his redness as if he put a red sock on his leg. Patient denies any pain to his lower extremity, denies feeling any coldness or any warm sensations. Patient denies any loss of sensation. Patient denies any fever or chills, denies chest pain or shortness of breath. Denies rashes of his skin. Patient states he is a patient of Dr. Su. Reports having his COVID-19 virus vaccination series completed second dose on December 06, [employer]. Patient denies any other physical complaints or physical concerns. 04/20/2021 No major events overnight. Ultrasound showed yesterday showed complex fluid collection of about 3 x 8 cm possible hematoma. On-call to the OR for I&D with vascular surgery today. Patient's chart, labs, images were reviewed and discussed with RN Vitals Vitals Vital Signs Date Time Temp Pulse Resp B/P (MAP) Pulse Ox O2 Delivery O2 Flow Rate FiO2 04/23/21 07:00 98.4 74 18 145/87 (106) 97 Room Air 98.4 Physical Exam Physical Exam GENERAL: Alert, oriented x 3 male in no acute distress. HEENT: Normocephalic, atraumatic. Anicteric. NECK: Supple, no JVD, no lymphadenopathy. LUNGS: Clear bilaterally. HEART: S1, S2. No murmurs. ABDOMEN: Soft, nontender, nondistended. EXTREMITIES: Left lower extremity dressing in place, not taken down DERMATOLOGIC: Warm, dry, no generalized rash except for above. NEUROLOGIC: Alert and oriented x 3, grossly nonfocal. PSYCHIATRIC: Calm and cooperative. General: Alert, Oriented X3, Cooperative, No acute distress Lungs: Clear Abdomen: Normal bowel sounds, Soft, No tenderness Extremities: No clubbing, No cyanosis, No edema FINAL DIAGNOSIS Problems Medical Problems: (1) Left leg cellulitis Status: Acute Brief Hospital Course Mr. Glez is a 65 old [sex] who presented with [ CELLULITIS OF LEG] CONDITION AT DISCHARGE: Improved Discharge Medications Current Medications Piperacillin Sod/ Tazobactam Sod (Zosyn Per Pharmacy) 1 each PRN DAILY PRN [facility] SEE COMMENTS; Start 04/18/21 at 18:00; Stop 04/19/21 at 09:42; Status DC Piperacillin Sod/ Tazobactam Sod 3.375 gm/Sodium Chloride 50 ml @ 100 mls/hr 1X ONCE IV Last administered on 04/18/21at 18:29; Start 04/18/21 at 18:15; Stop 04/18/21 at 18:44; Status DC Piperacillin Sod/ Tazobactam Sod 3.375 gm/Sodium Chloride 50 ml @ 100 mls/hr Q6HRS IV Last administered on 04/19/21at 05:39; Start 04/19/21 at 00:00; Stop 04/19/21 at 09:42; Status DC Acetaminophen (Tylenol) 650 mg PRN Q6HRS PRN PO MILD PAIN / TEMP > 100.3'F; Start 04/18/21 at 22:45 Acetaminophen/ Hydrocodone Bitart (Lortab 5/325) 1 tab PRN Q4HRS PRN PO MODERATE PAIN 4-6; Start 04/18/21 at 22:45 Atorvastatin Calcium (Lipitor) 10 mg HS PO Last administered on 04/22/21at 20:45; Start 04/18/21 at 23:00 Metoprolol Tartrate (Lopressor) 50 mg BID PO Last administered on 04/23/21at 09:49; Start 04/18/21 at 23:00 Aspirin (Aspirin Chewable) 81 mg DAILY PO Last administered on 04/23/21at 09:49; Start 04/19/21 at 11:30 Clopidogrel Bisulfate (Plavix) 75 mg DAILY PO Last administered on 04/23/21at 09:49; Start 04/19/21 at 11:30 Non-Formulary Medication (Omeprazole ) 20 mg DAILYAC PO Last administered on 04/23/21at 09:50; Start 04/19/21 at 11:30 Fentanyl Citrate (Fentanyl 2ml Vial) 25 mcg PRN Q5MIN PRN IVP MILD PAIN 1-3; Start 04/20/21 at 06:00; Stop 04/20/21 at 19:00; Status DC Fentanyl Citrate (Fentanyl 2ml Vial) 50 mcg PRN Q5MIN PRN IVP MODERATE PAIN 4- 6; Start 04/20/21 at 06:00; Stop 04/20/21 at 19:00; Status DC Morphine Sulfate (Morphine Sulfate) 1 mg PRN Q10MIN PRN IVP SEVERE PAIN 7-10; Start 04/20/21 at 06:00; Stop 04/20/21 at 19:00; Status DC Ringer's Solution 1,000 ml @ 30 mls/hr Q24H IV Last administered on 04/20/21at 10:00; Start 04/20/21 at 06:00; Stop 04/20/21 at 17:59; Status DC Hydromorphone HCl (Dilaudid) 0.5 mg PRN Q10MIN PRN IVP SEVERE PAIN 7-10, 2nd CHOICE; Start 04/20/21 at 06:00; Stop 04/20/21 at 19:00; Status DC Prochlorperazine Edisylate (Compazine) 5 mg PACU PRN PRN IVP NAUSEA, MRX1; Start 04/20/21 at 06:00; Stop 04/20/21 at 19:00; Status DC Dexamethasone Sodium Phosphate (Decadron) 4 mg STK-MED ONCE .ROUTE ; Start 04/20/21 at 10:10; Stop 04/20/21 at 10:10; Status DC Propofol (Diprivan) 200 mg STK-MED ONCE IV ; Start 04/20/21 at 10:10; Stop 04/20/21 at 10:10; Status DC Lidocaine HCl (Lidocaine Pf 2% Vial) 5 ml STK-MED ONCE .ROUTE ; Start 04/20/21 at 10:10; Stop 04/20/21 at 10:10; Status DC Lidocaine HCl (Lidocaine Pf 2% Vial) 5 ml STK-MED ONCE .ROUTE ; Start 04/20/21 at 10:10; Stop 04/20/21 at 10:10; Status DC Ondansetron HCl (Zofran) 4 mg STK-MED ONCE .ROUTE ; Start 04/20/21 at 10:10; Stop 04/20/21 at 10:10; Status DC Lidocaine HCl (Lidocaine Pf 2% Vial) 5 ml STK-MED ONCE .ROUTE ; Start 04/20/21 at 10:11; Stop 04/20/21 at 10:11; Status DC Cefazolin Sodium 1 gm/Sodium Chloride 500 ml @ 500 mls/hr 1X ONCE IRR Last administered on 04/20/21at 11:59; Start 04/20/21 at 11:30; Stop 04/20/21 at 12:29; Status DC Fentanyl Citrate (Fentanyl 2ml Vial) 100 mcg STK-MED ONCE .ROUTE ; Start 04/20/21 at 11:55; Stop 04/20/21 at 11:55; Status DC Piperacillin Sod/ Tazobactam Sod 3.375 gm/Sodium Chloride 50 ml @ 100 mls/hr Q6HRS IV Last administered on 04/23/21at 05:36; Start 04/20/21 at 18:00; Stop 04/23/21 at 09:00; Status DC Daptomycin 560 mg/ Sodium Chloride 50 ml @ 100 mls/hr Q24H IV Last administered on 04/22/21at 15:52; Start 04/20/21 at 15:00; Stop 04/23/21 at 09:00; Status DC Ephedrine Sulfate (ePHEDrine PF IN SALINE SYRINGE) 50 mg STK-MED ONCE IV ; Start 04/20/21 at 12:18; Stop 04/20/21 at 12:18; Status DC Lactobacillus Rhamnosus (Culturelle) 1 cap BID PO Last administered on 04/23/21at 09:49; Start 04/21/21 at 14:00 Multivitamins (Thera M Plus) 1 tab DAILY PO Last administered on 04/23/21at 09:49; Start 04/22/21 at 17:00 Ascorbic Acid (Vitamin C) 500 mg DAILY PO Last administered on 04/23/21at 09:00; Start 04/22/21 at 17:00 Amoxicillin/ Clavulanate Potassium (Augmentin 875/ 125mg) 1 tab BID PO ; Start 04/23/21 at 09:00 Active Scripts Active Reported Clopidogrel (Clopidogrel Bisulfate) 75 Mg Tablet 75 Mg PO DAILY Omeprazole 20 Mg Capsule.dr 20 Mg PO DAILY Metoprolol Tartrate 50 Mg Tablet 50 Mg PO BID Lisinopril 20 Mg Tablet 20 Mg PO DAILY Atorvastatin Calcium 10 Mg Tablet 10 Mg PO HS Aspirin 81 Mg Tab.chew 81 Mg PO DAILY Amlodipine Besylate 10 Mg Tablet 10 Mg PO DAILY Vital Signs Vital Signs Date Time Temp Pulse Resp B/P (MAP) Pulse Ox O2 Delivery O2 Flow Rate FiO2 04/23/21 09:49 74 145/87 04/23/21 07:00 98.4 18 97 Room Air 98.4 Allergies Allergies Coded Allergies Type Severity Reaction Last Updated Verified No Known Drug Allergies 03/23/21 No Disposition/Orders: D/C to Home w/ HH Justicifation of Admission Dx: Justifications for Admission: Justification of Admission Dx: Yes HAYDER JACKSON MD Apr 23, 2021 10:26
[2021-04-23] MEDS ORDERED: ASCO500T4 PO (10:32)
[2021-04-23] MEDS ORDERED: AMOX1TAB11 PO (10:32)
[2021-04-23] MEDS ORDERED: MULT1TAB92 PO (10:32)
[2021-04-23] MEDS ORDERED: LACT1CAP19 PO (10:32)
[2021-04-23] MEDS ORDERED: ACET325T21 PO (10:32)
[2021-04-23] MEDS ORDERED: HYDR-2761 PO (10:32)
--- NOTE | 2021-04-23 10:35 | SNU/HH DC ---
DISCHARGE WITH HOME HEALTH DISCHARGE INFORMATION: Discharge Date: Apr 23, 2021 Final Diagnosis: Problems Medical Problems: (1) Left leg cellulitis Status: Acute Condition on Discharge: Stable CODE STATUS: Code Status: Full HOME HEALTH: Face to Face: I certify this patient is under my care and that I, or a nurse practitioner or physician's dermatology physician assistant working with me, had a face to face encounter that meets the physician face to face encounter requirements with this patient on []. Medical Complications: Other (WOUND INFECTION) Assisted For: Admin/Educate Injections, Assess & Educate Safety, Assess/Skilled Observatio RN For Eval/Treatment: Yes Physical Therapy For: Evalulation/Treatment Occupational Therapy For: Evaluation/Treatment Home Health Aide For: Self-care JEWELRY ESTIMATOR For: Community Resources Pt Meets Homebound Status: Limited distance walking POST DISCHARGE ORDERS: Activity Instructions for Disc: Avoid exertion, Progressive ambulation Weight Bearing Status after Di: No restrictions DIET AFTER DISCHARGE: Cardiac Wound/Incision Care: May get incision wet, Other, see below CHECKS AFTER DISCHARGE: Checks after discharge: Check blood press - daily, Check your Temp as needed, Weigh Yourself Daily FOLLOW-UP: PCP to follow Home Health: ONE WEEK Follow up with: VASCULAR SURGERY 5-8 DAYS Follow Up With: DR JORDAN, ONE WEEK DC TO SNF LABS: CBC, BMP WEEKLY TREATMENT/EQUIPMENT ORDERS: Adaptive Equipment Issued: None CERTIFICATION STATEMENT: Certification Statement: Certification Statement: Based on the above finding, I certify that this patient is confined to the home and needs intermittent senior care care, physical therapy and/or speech therapy, or continues to need occupational therapy.~ This patient is under my care, and I have initiated the establishment of the plan of care.~ This patient will be followed by myself or a community physician who will periodically review the plan of care. Home Meds Active Scripts Multivits,Ca,Minerals/Iron/Fa (THERA-M TABLET) 1 Each Tablet, 1 TAB PO DAILY for SUPPLEMENT for 30 Days, #30 TAB Prov:HAYDER JACKSON MD 04/23/21 Ascorbic Acid (VITAMIN C) 500 Mg Tablet, 500 MG PO DAILY for SUPPLEMENT for 30 Days, #30 TAB Prov:HAYDER JACKSON MD 04/23/21 Lactobacillus Rhamnosus Gg (CULTURELLE) 1 Each Cap.sprink, 1 CAP PO BID for SUPPLEMENT for 30 Days, #60 CAP Prov:HAYDER JACKSON MD 04/23/21 Acetaminophen (ACETAMINOPHEN) 325 Mg Tablet, 650 MG PO PRN Q6HRS PRN for MILD PAIN / TEMP > 100.3'F for 30 Days, #90 TAB Prov:HAYDER JACKSON MD 04/23/21 Hydrocodone Bit/Acetaminophen (HYDROCODONE-APAP 5-325 ) 1 Tab Tablet, 1 TAB PO PRN Q4HRS PRN for MODERATE PAIN 4-6 for 10 Days, #30 TAB Prov:HAYDER JACKSON MD 04/23/21 Amoxicillin/Potassium Clav (AMOX TR-K CLV 875-125 MG TAB) 1 Each Tablet, 1 TAB PO BID for INFECTION for 14 Days, #28 TAB Prov:HAYDER JACKSON MD 04/23/21 Reported Medications Clopidogrel Bisulfate (CLOPIDOGREL) 75 Mg Tablet, 75 MG PO DAILY for TO PREVENT BLOOD CLOTS, #30 TAB 0 Refills 03/20/21 Omeprazole (OMEPRAZOLE) 20 Mg Capsule.dr, 20 MG PO DAILY for gerd, CAP 10/01/18 Metoprolol Tartrate (METOPROLOL TARTRATE) 50 Mg Tablet, 50 MG PO BID for FOR HYPERTENSION, #60 TAB 0 Refills 10/01/18 Atorvastatin Calcium (ATORVASTATIN CALCIUM) 10 Mg Tablet, 10 MG PO HS for FOR CHOLESTEROL, #30 TAB 0 Refills 10/01/18 Aspirin (ASPIRIN) 81 Mg Tab.chew, 81 MG PO DAILY for heart health, TAB.CHEW 10/01/18 Discontinued Reported Medications Lisinopril (LISINOPRIL) 20 Mg Tablet, 20 MG PO DAILY for FOR HYPERTENSION, #30 TAB 0 Refills 10/01/18 Amlodipine Besylate (AMLODIPINE BESYLATE) 10 Mg Tablet, 10 MG PO DAILY for hype rtension, TAB 10/01/18 HAYDER JACKSON MD Apr 23, 2021 10:35
[2021-04-23 11:00] VITALS: BP 150/76
--- NOTE | 2021-04-23 13:42 | PDOC ---
Provider Note Date of Service: DATE: 04/23/21 TIME: 13:41 Provider Note Provider Note POD#3 of left calf I&D Pt seen with DR. Jones s/p- left fem pop 03/23/2021 Pt has no complaints, denies significant pain, he is anxious to go home. VSS, afebrile Awake, alert, in no apparent distress Left leg wound assessed, wound bed clean without concerns. Palpable bypass pulse proximal to wound left foot warm. POD#3 of left calf I&D Pt seen with Dr. Jones - Continue wound vac therapy - cultures without growth, consistent with op note mentions more like seroma. however pt did have some erythema around wound. Cont abx per ID. - Ok to DC from our standpoint with home vac, home health, continued abx per ID. - F/u with us as scheduled. Justicifation of Admission Dx: Justifications for Admission: Justification of Admission Dx: Yes KEANU KAY Apr 23, 2021 13:42
[2021-04-23 15:00] VITALS: BP 129/87
--- NOTE | 2021-04-23 16:02 | NUR ---
Wound Care Wound Type/Assessment: patient seen per wound care consult. see wound assessment. patients dressing removed, the wound was cleaned, measured, pictured and redressed with NPWT.the wound has muscle and adipose exposed, and 1 staple noted at this time. 1 piece of foam placed in wound bed patient discharging today, so patient home wound vac placed at this time. Treatment Recommendations/Plan: Recommend to continue with the NPWT as ordered by Vascular. Education provided: Educated patient on the home vac and the wound clinic. Discharge Recommendations for dressings: Patient discharging home with home health, continue with NPWT as ordered per Vascular.
== END 2021-04-23 16:30 | disposition home health service (06) | DRG 908 ==
LOC: ER 14:50 → ED HOLD 20:08 → 4 NORTH 21:18
PROVIDERS: ADMIT Internal Medicine; ATTEND Internal Medicine
PROC: 0JDP0ZZ Extraction of Left Lower Leg Subcutaneous Tissue and Fascia, Open Approach (ICD-10-PCS; principal; 2021-04-20 11:30)
DX: T81.31XA Disruption of external operation (surgical) wound, not elsewhere classified, initial encounter (principal); L03.116 Cellulitis of left lower limb; E87.1 Hypo-osmolality and hyponatremia; E78.5 Hyperlipidemia, unspecified; E86.9 Volume depletion, unspecified; E87.8 Other disorders of electrolyte and fluid balance, not elsewhere classified; I10 Essential (primary) hypertension; I73.9 Peripheral vascular disease, unspecified; Z23 Encounter for immunization; Z86.718 Personal history of other venous thrombosis and embolism; Z87.891 Personal history of nicotine dependence
CPT/HCPCS: 36415; 76881; 80053; 81001; 83605; 85025; 87040; 87071; 87075; 87426; 93926; 96365; A4364; A4452; A4657; A4930; A6211; A6253; A6402; A6443; A6455; J0690; J0878; J1100; J2405; J2543; J2704; J3010; J7040; J7120; U0003; U0005; 97110-GP; 99285-25; G0378

== ENCOUNTER 2021-11-22 11:31 | Inpatient (IN) | payer MEDICARE, OTHER ==
[2021-11-22] VITALS (14 sets, daily range): BP systolic 102–170; BP diastolic 62–91
[~2021-11-22] VITALS: Ht 190.5 cm; Wt 110.2 kg
[~2021-11-22 11:31] MED LIST changes: +ACET325T21 PO; +AMOX1TAB11 PO; +ASCO500T4 PO; +HYDR-2761 PO; +LACT1CAP19 PO; +MULT1TAB92 PO
[2021-11-22] MEDS ORDERED: LISI20TA18 PO (11:52)
[2021-11-22] MEDS ORDERED: ASPI81TA59 PO (11:52)
[2021-11-22] MEDS ORDERED: ATOR10TA60 PO (11:52)
[2021-11-22] MEDS ORDERED: METO50TA6 PO (11:52)
[2021-11-22] MEDS ORDERED: AMLO-187 PO (11:52)
[2021-11-22] MEDS ORDERED: OMEP40CA7 PO (11:52)
[2021-11-22] MEDS ORDERED: CLOP75TA PO (11:55)
[2021-11-22] MEDS ORDERED: PANT20TA2 PO (11:55)
[2021-11-22] MEDS ORDERED: ATOR40TA59 PO (12:21)
--- NOTE | 2021-11-22 12:41 | PDOC2 ---
ARISTEO AGUILERA PODOPEDIATRICIAN 11/22/21 1241: CARDIAC CONSULT DATE OF CONSULT Date of Consult DATE: 11/22/21 TIME: 12:35 REASON FOR CONSULT Reason for Consult: Chest pain REFERRING PHYSICIAN Referring Physician: Cortez SOURCE Source: Chart review, Patient HISTORY OF PRESENT ILLNESS HISTORY OF PRESENT ILLNESS This is a pleasant 65 yo male admitted for complains of chest pain. He was initially at [facility] ER and transferred to [facility] for further evalua tion. Described his chest pain as pressure sometimes lasting about 30 minutes and on and off in the last wee. Yesterday he was walking his dog and felt that his dog was having seizure and that time he started having chest pressure. Positive for frequent belching and and also tingling to his hands which is about the same as when coronary stent was placed in 2017. No fever or chills nor viral symptoms. He has had his covid-19 vaccine. Denies any recent falls or injury. No prior hx of VTE nor arrhythmias. He sees Dr. Kong at [facility] cardiology and last time he swa him was 6 months ago. PAST MEDICAL HISTORY Cardiovascular: HTN, Hyperlipidemia, Other (PAD) Pulmonary: No pertinent hx GI: GERD Musculoskeletal: Osteoarthritis Infectious disease: No pertinent hx Renal/: No pertinent hx Endocrine: Other (metabolic syndrome) PAST SURGICAL HISTORY Past Surgical History: Other (left fem pop bypass; bilateral foot surgery, PCI) SOCIAL HISTORY Smoke: Quit ALCOHOL: occassional Drugs: None Lives: with Family ALLERGIES ALLERGIES: Coded Allergies: No Known Drug Allergies (Unverified , 03/23/21) ROS Review of System 14 point ROS evaluated with pertinent positives noted per HPI PHYSICAL EXAM General: Alert, Oriented X3, Cooperative, No acute distress HEENT: Atraumatic, Mucous membr. moist/pink Lungs: Clear to auscultation, Normal air movement Heart: Regular rate (SR), Normal S1, Normal S2 Extremities: No cyanosis, Other (trace to RLE and 1+ to LLE pitting edema) Skin: No breakdown Neuro: Normal speech, Sensation intact Psych/Mental Status: Mental status NL, Mood NL MUSCULOSKELETAL: Osteoarthritic changes both hands VITALS/I&O VITALS/I&O: Vital Signs Date Time Temp Pulse Resp B/P (MAP) Pulse Ox O2 Delivery O2 Flow Rate FiO2 11/22/21 11:22 97.6 93 20 170/91 (117) 95 Room Air 97.6 ASSESSMENT/PLAN ASSESSMENT/PLAN 1. Chest pain: UA features 2. CAD: RCA stent in 01/06/2017 3. HTN: controlled 4. HLP 5. PAD: past LLE fem pop bypass, clinically stable Recommendations 1. Continue ASA, plavix 2. Secondary prevention measures 3. [facility] today, risks and benefits discussed and agreeable to proceed JEREMY PETERSEN MD 11/22/21 1714: CARDIAC CONSULT ASSESSMENT/PLAN ASSESSMENT/PLAN Pt. seen and examined. 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 65 y.o male presented with unstable angina. See [facility] for full details but unsuccessful PCI, he had POBA only. Significant vessel calcification Start ASA 81mg daily, Prasugrel 10mg daily, continue heparin gtt for next 24 hours. Will plan for outpt high risk PCI with orbital atherectomy in 2 weeks. Supportive care. ARISTEO AGUILERA APRN Nov 22, 2021 12:41 JEREMY PETERSEN MD Nov 22, 2021 17:14
[2021-11-22] MEDS ORDERED: CALCIUM CARBONATE 500 MG TAB.CHEW PO PRN (13:45)
[2021-11-22] MEDS ORDERED: MORPHINE SULFATE 2 MG/ML INJ. IV PRN (13:45)
[2021-11-22] MEDS ORDERED: ACETAMINOPHEN 325 MG TABLET. PO PRN (13:45)
[2021-11-22] MEDS ORDERED: hydrALAZINE 20 MG/ML VIAL. IVP PRN (13:45)
[2021-11-22] MEDS ORDERED: ONDANSETRON PF 4 MG/2 ML VIAL. IVP PRN (13:45)
--- NOTE | 2021-11-22 14:10 | PDOC1 ---
History and Physical Date of Admission Date of Admission DATE: 11/22/21 TIME: 13:32 Identification/Chief Complaint Chief Complaint Chest pain Source Source: Patient History of Present Illness History of Present Illness Mr Davalos is a 65-year-old male with PMHx CAD s/p remote stenting (2016 - [facility]), HLD, HTN, heavy alcohol use, PVD s/p left fem-pop bypass who presented via private vehicle to [facility] ED in [facility] complaining of chest pressure. He woke up this morning and started experiencing chest pressure with light physical exertion while walking his dog. Over the past week he has had worsening left-sided chest pressure that radiates to left upper extremity every time he walks his dog. Physical activity makes worse, rest makes better. Notes nausea, lightheadedness, dizziness and sensation of getting his breath taken away. He thought he was stressed because his dog had a seizure in the evening on 11/21/2021 and he is having some stress due to his undergoing chemotherapy for cancer metastasized to her left breast. Compliant with all outpatient medications such as 81 mg aspirin and high intensity statin daily. He is a former smoker, stopped around 2017, has ongoing alcohol dependence with last drink yesterday evening, denies illicit drug abuse. 162 mg aspirin and x1 sublingual nitro administered with mild relief in symptoms. WBC 7.8, Hb 15.9, platelets 217, NA 137, K4.1, BUN 16, CR 1.2, glucose 147, calcium 9.1, NT proBNP 204, high-sensitivity troponin initial is eight and repeat at 3 hours is eight, rapid COVID-19 negative EKG at 0831 hrs. as sinus rhythm at 79 bpm, prolonged CT at 206 otherwise normal intervals, left axis deviation, no acute ischemic findings, no STEMI. similar to 1st EKG and prior Chest radiograph with mildly prominent interstitium. Due to nature of chest pain and prior CAD transferred to [place] for urgent cardiac evaluation. Seen bedside he still experiencing some chest pressure. Past Medical History Cardiovascular: HTN, Hyperlipidemia, Other (PAD) Pulmonary: No pertinent hx GI: GERD Musculoskeletal: Osteoarthritis Infectious disease: No pertinent hx Renal/: No pertinent hx Endocrine: Other (metabolic syndrome) Past Surgical History Past Surgical History: Other (left fem pop bypass; bilateral foot surgery, PCI) Family History Family History: High Cholestrol, Hypertension Social History Smoke: Quit ALCOHOL: occassional Drugs: None Current Medications Current Medications Active Scripts Active Thera-M Tablet (Multivits,Ca,Minerals/Iron/Fa) 1 Each Tablet 1 Tab PO DAILY 30 Days Vitamin C (Ascorbic Acid) 500 Mg Tablet 500 Mg PO DAILY 30 Days Culturelle (Lactobacillus Rhamnosus Gg) 1 Each Cap.sprink 1 Cap PO BID 30 Days Acetaminophen 325 Mg Tablet 650 Mg PO PRN Q6HRS PRN 30 Days Hydrocodone-Apap 5-325 (Hydrocodone Bit/Acetaminophen) 1 Tab Tablet 1 Tab PO PRN Q4HRS PRN 10 Days Amox Tr-K Clv 875-125 Mg Tab (Amoxicillin/Potassium Clav) 1 Each Tablet 1 Tab PO BID 14 Days Reported Atorvastatin Calcium 40 Mg Tablet 1 Tab PO DAILY Protonix (Pantoprazole Sodium) 20 Mg Tablet.dr 1 Tab PO DAILY Amlodipine Besylate 10 Mg Tablet 10 Mg PO DAILY Metoprolol Tartrate 50 Mg Tablet 1 Tab PO BID Lisinopril 20 Mg Tablet 1 Tab PO DAILY Children's Aspirin (Aspirin) 81 Mg Tab.chew 81 Mg PO DAILY Clopidogrel (Clopidogrel Bisulfate) 75 Mg Tablet 75 Mg PO DAILY Omeprazole 20 Mg Capsule.dr 20 Mg PO DAILY Allergies Allergies: Coded Allergies: No Known Drug Allergies (Unverified , 03/23/21) ROS General: YES: Fatigue, Malaise; No: Chills, Night Sweats, Appetite, Other PSYCHOLOGICAL ROS: No: Anxiety, Behavioral Disorder, Concentration difficultie, Decreased libido, Depression, Disorientation, Hallucinations, Hostility, Irritablity, Memory difficulties, Mood Swings, Obsessive thoughts, Physical abuse, Sexual abuse, Sleep disturbances, Suicidal ideation, Other Eyes: No Blurry vision, No Decreased vision, No Double vision, No Dry eyes, No Excessive tearing, No Eye Pain, No Itchy Eyes, No Loss of vision, No Photophobia, No Scotomata, No Uses contacts, No Uses glasses, No Other HEENT: No: Heacaches, Visual Changes, Hearing change, Nasal congestion, Nasal discharge, Oral lesions, Sinus pain, Sore Throat, Epistaxis, Sneezing, Snoring, Tinnitus, Vertigo, Vocal changes, Other ALLERGY AND IMMUNOLOGY: No: Hives, Insect Bite Sensitivity, Itchy/Watery Eyes, Nasal Congestion, Post Nasal Drip, Seasonal Allergies, Other Hematological and Lymphatic: No: Bleeding Problems, Blood Clots, Blood Transfusions, Brusing, Night Sweats, Pallor, Swollen Lymph Nodes, Other ENDOCRINE: No: Breast Changes, Galactorrhea, Hair Pattern Changes, Hot Flashes, Malaise/lethargy, Mood Swings, Palpitations, Polydipsia/polyuria, Skin Changes, Temperature Intolerance, Unexpected Weight Changes, Other Breast: No New/Changing Breast Lumps, No Nipple changes, No Nipple discharge, No Other Respiratory: YES: Shortness of breath, SOB with excertion; No: Cough, Hemoptysis, Orthopnea, Pleuritic Pain, Sputum Changes, Stridor, Tachypnea, Wheezing, Other Cardiovascular: yes Chest Pain; No Palpitations, No Orthopnea, No Paroxysmal Noc. Dyspnea, No Edema, No Lt Headedness, No Other Gastrointestinal: No Nausea, No Vomiting, No Abdominal Pain, No Diarrhea, No Constipation, No Melena, No Hematochezia, No Other Genitourinary: No Dysuria, No Frequency, No Incontinence, No Hematuria, No Retention, No Discharge, No Urgency, No Pain, No Flank Pain, No Other, No , No , No , No , No , No , No Musculoskeletal: No Gait Disturbance, No Joint Pain, No Joint Stiffness, No Joint Swelling, No Muscle Pain, No Muscular Weakness, No Pain In:, No Swelling In:, No Other Neurological: No Behavorial Changes, No Bowel/Bladder ControlChng, No Confusion, No Dizziness, No Gait Disturbance, No Headaches, No Impaired Coord/ba jocelynn, No Memory Loss, No Numbness/Tingling, No Seizures, No Speech Problems, No Tremors, No Visual Changes, No Weakness, No Other Skin: No Dry Skin, No Eczema, No Hair Changes, No Lumps, No Mole Changes, No Mottling, No Nail Changes, No Pruritus, No Rash, No Skin Lesion Changes, No Other, No Acne Physical Exam General: Alert, Oriented X3, Cooperative, mild distress HEENT: Atraumatic, PERRLA, EOMI, Mucous membr. moist/pink Lungs: Clear to auscultation, Normal air movement Heart: S1S2, RRR, no thrills, no rubs, no gallops, no murmurs Abdomen: Normal bowel sounds, Soft, No tenderness, No hepatosplenomegaly, No masses Rectal Exam: not examined Extremities: No clubbing, No cyanosis, No edema, Normal pulses, No tenderness/swelling Skin: No rashes, No breakdown, No significant lesion, Other (left medial calf with scarring) Neuro: Normal gait, Normal speech, Strength at 5/5 X4 ext, Normal tone, Sensation intact, Cranial nerves 3-12 NL, Reflexes 2+ Psych/Mental Status: Mental status NL, Mood NL Vitals Vitals Vital Signs Date Time Temp Pulse Resp B/P (MAP) Pulse Ox O2 Delivery O2 Flow Rate FiO2 11/22/21 12:29 Room Air 11/22/21 11:22 97.6 93 20 170/91 (117) 95 97.6 Images Images XR CHEST 1V Within normal limits cardiomediastinal silhouette given AP technique. Unchanged eileen. Mild tortuosity of the descending aorta near the diaphragmatic hiatus. Mildly increased lung markings. No confluent airspace infiltrate, layering effusion or pneumothorax. Impression: Mildly prominent interstitium which is nonspecific and could be from bronchovascular crowding, chronic parenchymal changes or mild interstitial edema. VTE Prophylaxis Ordered VTE Prophylaxis Devices: No VTE Pharmacological Prophylaxi: Yes Assessment/Plan Assessment/Plan Chest pain -high risk CAD with prior stenting. Last seen 2 years ago with normal cardiac evaluation. Will trend troponins continue telemetry as needed nitroglycerin. Appropriate for cardiac catheterization. Cardiology consulted CAD s/p remote stenting (2016 - [facility]) -compliant with meds PAD - s/p femoral popliteal bypass, left lower extremity on 03/23/2021. HLD - cont statin HTN - cont home meds Heavy alcohol use - [facility] protocol Abnormal CXR - some slight wheezing. no significant crackles on examination. Will monitor respiratory status FEN - NPO PPX - Lovenox FULL CODE Dispo - inpatient for angina Justifications for Admission Other Justification KAYODE ALVAREZ MD Nov 22, 2021 14:10
[2021-11-22] MEDS ORDERED: LIDOCAINE 1% PF 2 ML VIAL. ONE (14:43)
[2021-11-22] MEDS ORDERED: IODIXANOL 320 MG/ML 100 ML VIAL. ONE ×2 (14:43→15:45)
[2021-11-22] MEDS ORDERED: fentaNYL PF VIAL 100 MCG/2 ML VIAL ONE (15:02)
[2021-11-22] MEDS ORDERED: MIDAZOLAM HCL/PF 2 MG/2 ML VIAL. ONE (15:02)
[2021-11-22] MEDS ORDERED: NITROGLYCERIN 200 MCG/2 ML SYRINGE FOR CATH/VASC LAB. ONE ×2 (15:02→16:30)
[2021-11-22] MEDS ORDERED: HEPARIN for IV BOLUS 10,000 UNIT/10 ML VIAL. ONE (15:02)
[2021-11-22] MEDS ORDERED: VERAPAMIL 5 MG/2 ML VIAL. ONE (15:02)
[2021-11-22] MEDS ORDERED: TIROFIBAN 12.5MG -0.9% NS 250 ML IV ONE (15:19)
[2021-11-22] MEDS ORDERED: HEPARIN for IV BOLUS 10,000 UNIT/10 ML VIAL. IV ONE (15:30)
[2021-11-22] MEDS ORDERED: MIDAZOLAM HCL/PF 2 MG/2 ML VIAL. IV ONE (15:30)
[2021-11-22] MEDS ORDERED: LIDOCAINE 1% PF 2 ML VIAL. INJ ONE (15:30)
[2021-11-22] MEDS ORDERED: HEPARIN for IV BOLUS 10,000 UNIT/10 ML VIAL. IART ONE (15:30)
[2021-11-22] MEDS ORDERED: NITROGLYCERIN 200 MCG/2 ML SYRINGE FOR CATH/VASC LAB. IART ONE (15:30)
[2021-11-22] MEDS ORDERED: TIROFIBAN 12.5MG -0.9% NS 250 ML IV PRN (15:30)
[2021-11-22] MEDS ORDERED: IODIXANOL 320 MG/ML 100 ML VIAL. IART ONE (15:30)
[2021-11-22] MEDS ORDERED: fentaNYL PF VIAL 100 MCG/2 ML VIAL IV ONE (15:30)
[2021-11-22] MEDS ORDERED: VERAPAMIL 5 MG/2 ML VIAL. IART ONE (15:30)
[2021-11-22] MEDS: HEPARIN 25,000UTS/250ML PREMIX 250 ML IV PRN (16:36)
[2021-11-22] MEDS ORDERED: PRASUGREL 10 MG TABLET. ONE (16:41)
[2021-11-22] MEDS ORDERED: HEPARIN for IV BOLUS 10,000 UNIT/10 ML VIAL. IV PRN (16:45)
[2021-11-22] MEDS ORDERED: PRASUGREL 10 MG TABLET. PO ONE (16:45)
[2021-11-22] MEDS ORDERED: NITROGLYCERIN 200 MCG/2 ML SYRINGE FOR CATH/VASC LAB. ICAR ONE (16:45)
--- NOTE | 2021-11-22 17:10 | NUR ---
Upon arrival to 667, R radial site noted to have some bleeding, 4cc of air added and hemostasis achieved. [facility] site cleaned up, Cruzito PEREZ, at bedside and dite assessed together. Pt encouraged to keep hand still and v\u.
--- NOTE | 2021-11-22 18:31 | CARD ---
MR#: [id number] Date of Study: 11/22/2021 Ordering Physician: ARISTEO AGUILERA, Referring Physician: ARISTEO AGUILERA, Tech: RT Yessy(R) APPROVED REPORT Technologist: RT Yessy(R) Nurse: Soumya Christiansen RN Procedure(s) performed: FL TIME: 30.3 MIN DOSE: 326 GYCM2 CONTRAST: 214 ML MODERATE SEDATION: 111 MINS LHC, Coronary angiography PTCA of the proximal LCx Failed PCI of the proximal LCx INDICATION The indication(s) include : unstable angina . CS Clinical Frailty Scale [facility] Clinical Frailty Scale: Managing Well Heart Failure Heart Failure: No CASE TECHNIQUE IV conscious sedation was used throughout procedure with appropriate monitoring and was performed in the presence of a registered nurse who was an independent trained observer other than the physician p erforming the procedure. During this case, Fluoroscopy and low osmolar contrast were used for imaging . Specimen(s) Removed: N/A Estimated Blood loss: 20 cc's. PROCEDURE NARRATIVE Clinical information: 65-year-old man with a prior history of coronary artery disease and RCA PCI presented to the hospital in the setting of worsening unstable angina. He apparently was out walking his dog and had progress gera anginal discomfort and was unable to sleep and therefore presented to our hospital. Initial card iac enzymes are negative but given his significant past medical history and anginal symptoms despite optimal medical therapy a decision was made to take the patient to the catheterization laboratory. Procedure details: After proper informed consent the right wrist was prepped and draped in usual sterile fashion. Under 1% lidocaine local anesthesia a 6 Omani sheath was placed in the right radial artery. Diagnostic a ngiography was then performed with a 6 Omani TIG catheter. Left ventricular end-diastolic pressure was obtained with a TIG catheter and a pullback was performed. Findings: Hemodynamics: Aorta 120/80 LVEDP 10 mmHg No LV to aortic pullback gradient Coronary angiography: Left main is a large-caliber vessel with normal angiographic appearance LAD is a moderate caliber vessel with a mid 50% stenosis D1 is a moderate caliber vessel with a proximal 30% stenosis Circumflex is a large-caliber nondominant vessel with a proximal calcified 90% stenosis. OM1 is a small caliber vessel with mild luminal irregularities OM2 is a small to moderate caliber vessel with mild luminal irregularities RCA is a large-caliber dominant vessel with a patent mid stent and mild diffuse irregularities of up to 50% RPDA and RPL are moderate to large caliber vessels with mild luminal irregularities of up to 30% Interventional technique: Given the patient's presenting symptoms and angiographic findings of significant left circumflex sten osis the decision was made to proceed with PCI. Heparin and tirofiban were used for anticoagulation through a 6 Omani EBU 3.5 guide catheter a Prowater wire was initially placed in the distal OM1. Th e lesion was angioplastied with a 3.0 x 12 mm balloon and subsequent attempts to deliver the stent we re unsuccessful due to the proximal tortuosity of the circumflex as well as heavy calcification. A s econd Prowater wire was placed in the distal OM2. Despite support from a second wire the stent was u nable to be delivered. Next, a telescope guide extension catheter was placed in the left main and at tempts to advance the stent were unsuccessful. Next, a 3.5 x 12 mm balloon was used to angioplasty t he circumflex lesion at 14 belinda. There was appropriate expansion with a noncompliant balloon. No obv ious residual dissection was noted. Next, a 3.0 mm balloon was used to anchor distal to the circumfl ex lesion to railed the telescope guide extension past the stenosis but the guide extension could not go past the distal edge of the stenosis. Despite repeated maneuvers and attempts the advancement of a stent was unsuccessful and given the patient had SEUN-3 flow and lack of EKG changes a decision wa s made to defer further intervention with plans for possible atherectomy at a later date. All cathet ers and wires were removed and hemostasis was achieved in the wrist via a Terumo radial band. The pat ient received 60 mg of prasugrel at case completion. Heparin drip was continued. No acute complications. SEUN Flow SEUN Flow (Pre-Intervention): SEUN-3 SEUN Flow (Post-Intervention): SEUN-3 Conclusion 1. Normal left-sided filling pressures 2. Three-vessel coronary artery disease 3. Successful balloon angioplasty of the left circumflex stenosis. Unable to deliver a stent due to significant proximal tortuosity and calcification despite use of guide extension catheters and aggre ssive balloon dilation. Recommendations 1. Continue heparin drip for 24 hours. 2. Continue aspirin 81 mg daily, stop Plavix and start prasugrel 10 mg daily 3. Plan for a outpatient orbital atherectomy PCI of the left circumflex. Signed by : Chuck Hopkins, Electronically Approved : 11/22/2021 18:30:33
[2021-11-22] MEDS: PSYLLIUM HUSK (SUGAR FREE) 1 PKT PACKET PO SCH (21:37)
[2021-11-22] MEDS: LACTOBACILLUS RHAMNOSUS GG 1 CAPSULE. PO SCH (21:37)
[2021-11-22] MEDS: ATORVASTATIN CALCIUM 40 MG TABLET. PO SCH (21:37)
[2021-11-22] MEDS: METOPROLOL TART IMMED RELEASE 50 MG TABLET. PO SCH (21:38)
[2021-11-23 02:30] VITALS: BP 131/75
[2021-11-23 04:34] LABS: HEMOGLOBIN 14.7 g/dL (13.0-17.5); RED BLOOD COUNT 4.6 x10^6/uL (4.30-5.70); RED CELL DISTRIBUTION WIDTH 13.3 % (11.5-14.5); WHITE BLOOD COUNT 6.8 x10^3/uL (4.0-11.0)
[2021-11-23 05:13] LABS: CHOLESTEROL/HDL RATIO 1.8
[2021-11-23] MEDS: PANTOPRAZOLE 40 MG TABLET.DR. PO SCH (06:21)
[2021-11-23] MEDS: HEPARIN 25,000UTS/250ML PREMIX 250 ML IV PRN (06:42)
[2021-11-23 07:00] VITALS: BP 141/72
[2021-11-23] MEDS: MULTIVITAMIN with MINERAL TABLET. PO SCH (08:58)
[2021-11-23] MEDS: LISINOPRIL 20 MG TABLET PO SCH (08:58)
[2021-11-23] MEDS: ASPIRIN CHEWABLE 81 MG TABLET. PO SCH (08:59)
[2021-11-23] MEDS: LACTOBACILLUS RHAMNOSUS GG 1 CAPSULE. PO SCH ×2 (08:59→20:14)
[2021-11-23] MEDS: METOPROLOL TART IMMED RELEASE 50 MG TABLET. PO SCH ×2 (09:00→20:17)
[2021-11-23] MEDS ORDERED: CLOPIDOGREL BISULFATE 75 MG TABLET PO SCH (09:00)
--- NOTE | 2021-11-23 10:44 | PDOC ---
[employer] PROGRESS NOTE Date of Service DOS: DATE: 11/23/21 TIME: 10:39 Chief Complaint Chief Complaint Status post cardiac cath with balloon angioplasty Previous known CAD with stent in 2016 Hypertension Hyperlipidemia PAD Awaiting orbital arterectomy in 2 weeks History of Present Illness History of Present Illness 11/23/2021 Patient seen and examined He clinically is doing well Has a heparin drip pain Discussed with RN Chart reviewed Vitals/I&O Vitals/I&O: Vital Signs Date Time Temp Pulse Resp B/P (MAP) Pulse Ox O2 Delivery O2 Flow Rate FiO2 11/23/21 09:00 94 141/72 11/23/21 07:00 98.1 18 98 Room Air 98.1 11/22/21 17:26 2.0 I & O 11/22/21 11/22/21 11/23/21 15:00 23:00 07:00 Intake Total 0 ml 760 ml 100 ml Output Total 400 ml 1150 ml Balance 0 ml 360 ml -1050 ml Physical Exam General: Alert, Oriented X3, Cooperative, mild distress Heart: Regular rate (SR), Normal S1, Normal S2 Lungs: Clear Abdomen: Normal bowel sounds, Soft, No tenderness, No hepatosplenomegaly, No masses Extremities: No clubbing, No cyanosis, No edema, Normal pulses, No tenderness/swelling Skin: No rashes, No breakdown, No significant lesion, Other (left medial calf with scarring) Labs Labs: Laboratory Tests Test 11/22/21 15:56 11/22/21 22:40 11/23/21 04:00 Activated Clotting Time 271 sec (92-181) Heparin Anti-Xa Act, Unfractionated 0.40 IU/mL (0.30-0.70) 0.44 IU/mL (0.30-0.70) White Blood Count 6.8 x10^3/uL (4.0-11.0) Red Blood Count 4.60 x10^6/uL (4.30-5.70) Hemoglobin 14.7 g/dL (13.0-17.5) Hematocrit 44.0 % (39.0-53.0) Mean Corpuscular Volume 96 fL (79-100) Mean Corpuscular Hemoglobin 32 pg (25-35) Mean Corpuscular Hemoglobin Concent 33 g/dL (31-37) Red Cell Distribution Width 13.3 % (11.5-14.5) Platelet Count 193 x10^3/uL (140-400) Triglycerides Level 100 mg/dL (0-150) Cholesterol Level 113 mg/dL (0-200) LDL Cholesterol, Calculated 29 mg/dL (0-100) VLDL Cholesterol, Calculated 20 mg/dL (0-40) Non-HDL Cholesterol Calculated 49 mg/dL (0-129) HDL Cholesterol 64 mg/dL (40-60) Cholesterol/HDL Ratio 1.8 Assessment and Plan Assessmemt and Plan Status post cardiac cath with POBA Previous known CAD with stent in 2016 Hypertension Hyperlipidemia PAD Awaiting orbital arterectomy in 2 weeks Plan Once the heparin drip is off later today he can probably go home if okay with cardiology We will send prescriptions for Effient and aspirin Continue other home medicines DVT prophylaxis Full code The plan is to bring him back in 2 weeks for orbital arterectomy Per cardiology recommendations please see below and we certainly agree and appreciate their input; ASSESSMENT/PLAN ASSESSMENT/PLAN Pt. seen and examined. Agree with above FACTORY MAINTENANCE TECHNICIAN note. 65 y.o male presented with unstable angina. See [facility] for full details but unsuccessful PCI, he had POBA only. Significant vessel calcification Start ASA 81mg daily, Prasugrel 10mg daily, continue heparin gtt for next 24 hours. Will plan for outpt high risk PCI with orbital atherectomy in 2 weeks. Supportive care. Comment Review of Relevant I have reviewed the following items lane (where applicable) has been applied. Medications: Current Medications Medications (Trade) Dose Ordered Sig/Porfirio Route PRN Reason Start Time Stop Time Status Last Admin Dose Admin Psyllium Hydrophilic Mucilloid (Metamucil Fiber Packet) 1 pkt QHS PO 11/22/21 21:00 11/22/21 21:37 Amlodipine Besylate (Norvasc) 10 mg DAILY PO 11/23/21 09:00 11/23/21 08:59 Aspirin (Aspirin Chewable) 81 mg DAILY PO 11/23/21 09:00 11/23/21 08:59 Atorvastatin Calcium (Lipitor) 40 mg QHS PO 11/22/21 21:00 11/22/21 21:37 Lactobacillus Rhamnosus (Culturelle) 1 cap BID PO 11/22/21 21:00 11/23/21 08:59 Lisinopril (Prinivil) 20 mg DAILY PO 11/23/21 09:00 11/23/21 08:58 Metoprolol Tartrate (Lopressor) 50 mg BID PO 11/22/21 21:00 11/23/21 09:00 Multivitamins (Thera M Plus) 1 tab DAILY PO 11/23/21 09:00 11/23/21 08:58 Pantoprazole Sodium (Protonix) 40 mg DAILYAC PO 11/23/21 07:30 11/23/21 06:21 Nitroglycerin (Nitroglycerin) 200 mcg 1X ONCE IART 11/22/21 15:30 11/22/21 15:35 DC 11/22/21 16:47 Verapamil HCl (Verapamil) 2.5 mg 1X ONCE IART 11/22/21 15:30 11/22/21 15:35 DC 11/22/21 16:49 Heparin Sodium (Porcine) (Heparin Sodium) 2,500 unit 1X ONCE IART 11/22/21 15:30 11/22/21 15:35 DC 11/22/21 16:52 Heparin Sodium/ Sodium Chloride (HEPARIN for ARTERIAL LINE FLUSH) 1,000 unit 1X ONCE IART 11/22/21 15:30 11/22/21 15:35 DC 11/22/21 16:47 Midazolam HCl (Versed) 2 mg 1X ONCE IV 11/22/21 15:30 11/22/21 15:35 DC 11/22/21 16:49 Fentanyl Citrate (Fentanyl 2ml Vial) 50 mcg 1X ONCE IV 11/22/21 15:30 11/22/21 15:35 DC 11/22/21 16:49 Iodixanol (Visipaque 320) 100 ml 1X ONCE IART 11/22/21 15:30 11/22/21 15:35 DC 11/22/21 16:47 Heparin Sodium (Porcine) (Heparin Sodium) 4,000 unit 1X ONCE IV 11/22/21 15:30 11/22/21 15:35 DC 11/22/21 16:53 Tirofiban/Sodium Chloride 250 ml @ 0 mls/hr CONT PRN IV PER PROTOCOL 11/22/21 15:30 11/22/21 15:21 Lidocaine HCl (Xylocaine-Mpf 1% 2ml Vial) 2 ml 1X ONCE INJ 11/22/21 15:30 11/22/21 15:35 DC 11/22/21 16:48 Nitroglycerin (Nitroglycerin) 200 mcg 1X ONCE ICAR 11/22/21 16:45 11/22/21 16:46 DC 11/22/21 16:48 Heparin Sodium/ Dextrose 250 ml @ 10 mls/hr CONT PRN IV PER PROTOCOL 11/22/21 16:45 11/23/21 06:42 Prasugrel (Effient) 60 mg 1X ONCE PO 11/22/21 16:45 11/22/21 16:46 DC 11/22/21 16:48 Justifications for Admission Chest Pain Indications Justification for admission: Patient's respiratory distress as indicated by (SOB/tachypnea/abnormal breathing pattern plus hypoxemia/AMS/other evidence of respiratory compromise such as pulmonary edema on chest x-ray) will need inpatient level of care. Other Justification ISIS JOHNSON III DO Nov 23, 2021 10:44
[2021-11-23] MEDS ORDERED: PRAS10TA9 PO (10:48)
--- NOTE | 2021-11-23 10:49 | SNU/HH DC ---
DISCHARGE WITH HOME HEALTH DISCHARGE INFORMATION: Condition on Discharge: Stable CODE STATUS: Code Status: Full HOME HEALTH: Face to Face: I certify this patient is under my care and that I, or a nurse practitioner or physician's assistant curator working with me, had a face to face encounter that meets the physician face to face encounter requirements with this patient on []. Medical Complications: Other (CAD) Residential For: Assess & Educate Safety RN For Eval/Treatment: Yes Physical Therapy For: Evalulation/Treatment Occupational Therapy For: Evaluation/Treatment Home Health Aide For: Self-care BOOKMOBILE DRIVER For: Community Resources Pt Meets Homebound Status: Poor coordination w/ amb. POST DISCHARGE ORDERS: Activity Instructions for Disc: Activity as tolerated Weight Bearing Status after Di: No restrictions, Full weight bearing Bathing Instructions: Shower-keep dressing dry, No Tub Bath until see Dr. SARAH AFTER DISCHARGE: Cardiac Wound/Incision Care: Keep wound/cast CDI, Do not change dressing, Reinforce dressing PRN CHECKS AFTER DISCHARGE: Checks after discharge: Check blood press - daily, Check your Temp as needed, Weigh Yourself Daily FOLLOW-UP: DC TO SNF LABS: CBC, BMP WEEKLY TREATMENT/EQUIPMENT ORDERS: Adaptive Equipment Issued: None CERTIFICATION STATEMENT: Certification Statement: Certification Statement: Based on the above finding, I certify that this patient is confined to the home and needs intermittent [place] [facility] care, physical therapy and/or speech therapy, or continues to need occupational therapy.~ This patient is under my care, and I have initiated the establishment of the plan of care.~ This patient will be followed by myself or a community physician who will periodically review the plan of care. Home Meds Active Scripts Prasugrel Hcl (EFFIENT) 10 Mg Tablet, 1 TAB PO DAILY for cad, #90 TAB 3 Refills Prov:CASTLE,NIAL K III DO 11/23/21 Multivits,Ca,Minerals/Iron/Fa (THERA-M TABLET) 1 Each Tablet, 1 TAB PO DAILY for SUPPLEMENT for 30 Days, #30 TAB Prov:HAYDER JACKSON MD 04/23/21 Ascorbic Acid (VITAMIN C) 500 Mg Tablet, 500 MG PO DAILY for SUPPLEMENT for 30 Days, #30 TAB Prov:HAYDER JACKSON MD 04/23/21 Lactobacillus Rhamnosus Gg (CULTURELLE) 1 Each Cap.sprink, 1 CAP PO BID for SUPPLEMENT for 30 Days, #60 CAP Prov:HAYDER JACKSON MD 04/23/21 Acetaminophen (ACETAMINOPHEN) 325 Mg Tablet, 650 MG PO PRN Q6HRS PRN for MILD PAIN / TEMP > 100.3'F for 30 Days, #90 TAB Prov:HAYDER JACKSON MD 04/23/21 Hydrocodone Bit/Acetaminophen (HYDROCODONE-APAP 5-325 ) 1 Tab Tablet, 1 TAB PO PRN Q4HRS PRN for MODERATE PAIN 4-6 for 10 Days, #30 TAB Prov:HAYDER JACKSON MD 04/23/21 Amoxicillin/Potassium Clav (AMOX TR-K CLV 875-125 MG TAB) 1 Each Tablet, 1 TAB PO BID for INFECTION for 14 Days, #28 TAB Prov:HAYDER JACKSON MD 04/23/21 Reported Medications Atorvastatin Calcium (ATORVASTATIN CALCIUM) 40 Mg Tablet, 1 TAB PO DAILY for HLD, #30 TAB 5 Refills 11/22/21 Pantoprazole Sodium (PROTONIX) 20 Mg Tablet., 1 TAB PO DAILY for gerd, #30 TAB 11/22/21 Amlodipine Besylate (AMLODIPINE BESYLATE) 10 Mg Tablet, 10 MG PO DAILY for htn, TAB 11/22/21 Metoprolol Tartrate (METOPROLOL TARTRATE) 50 Mg Tablet, 1 TAB PO BID for htn, #60 TAB 5 Refills 11/22/21 Lisinopril (LISINOPRIL) 20 Mg Tablet, 1 TAB PO DAILY for htn, #30 TAB 5 Refills 11/22/21 Aspirin (Children's Aspirin) 81 Mg Tab.chew, 81 MG PO DAILY for Cardiac, TAB.CHEW 11/22/21 Omeprazole (OMEPRAZOLE) 20 Mg Capsule.dr, 20 MG PO DAILY for gerd, CAP 10/01/18 Discontinued Reported Medications Clopidogrel Bisulfate (CLOPIDOGREL) 75 Mg Tablet, 75 MG PO DAILY for TO PREVENT BLOOD CLOTS, #30 TAB 0 Refills 03/20/21 Clopidogrel Bisulfate (CLOPIDOGREL) 75 Mg Tablet, 1 TAB PO DAILY for cardiac, #90 TAB 1 Refill 11/22/21 Omeprazole (OMEPRAZOLE) 40 Mg Capsule., 1 CAP PO DAILY for gerd, #30 CAP 3 Refills 11/22/21 Atorvastatin Calcium (ATORVASTATIN CALCIUM) 10 Mg Tablet, 10 MG PO HS for FOR CHOLESTEROL, #30 TAB 0 Refills 11/22/21 Metoprolol Tartrate (METOPROLOL TARTRATE) 50 Mg Tablet, 50 MG PO BID for FOR HYPERTENSION, #60 TAB 0 Refills 10/01/18 Atorvastatin Calcium (ATORVASTATIN CALCIUM) 10 Mg Tablet, 10 MG PO HS for FOR CHOLESTEROL, #30 TAB 0 Refills 10/01/18 Aspirin (ASPIRIN) 81 Mg Tab.chew, 81 MG PO DAILY for heart health, TAB.CHEW 10/01/18 ISIS JOHNSON III DO Nov 23, 2021 10:49
[2021-11-23 11:00] VITALS: BP 151/85
--- NOTE | 2021-11-23 11:27 | DS ---
DATE OF DISCHARGE: 11/23/2021 ADMITTING DIAGNOSIS: Chest pain with previous known coronary artery disease and prior stenting. DISCHARGE DIAGNOSES: 1. Status post cardiac catheterization with percutaneous old balloon angioplasty (he is coming back in 2 weeks for an orbital atherectomy). 2. Previous known coronary artery disease with stents in 12/2016, hypertension, hyperlipidemia, peripheral arterial disease. CONSULTS: Cardiology. PROCEDURES: Cardiac catheterization. HOSPITAL COURSE: The patient is a pleasant middle-aged male who presented with chest pain and he had known previous coronary artery disease. He was admitted. Dr. Hopkins took him to the cardiac cath rn and did POBA. Dr. Hopkins plans to bring the patient back in 2 weeks for orbital atherectomy. I saw the patient today, he looks great. He still has heparin drip but Dr. Hopkins would like him to come off that later today, I believe. I spoke with the nurse practitioner for Cardiology, he agrees. We plan to discharge on Effient and aspirin. DISPOSITION: Home. ACTIVITY: As tolerated. DIET: Cardiac. DISCHARGE MEDICATIONS: Effient 10 mg a day, aspirin 81 a day, p.r.n. Tylenol, amlodipine 10 a day. We will continue his home Augmentin 875 b.i.d. until he completes that, vitamin C, atorvastatin 40 a day, p.r.n. hydrocodone, lactobacillus, lisinopril 20 a day, metoprolol 50 b.i.d., vitamins, omeprazole 20 a day, Protonix 40 a day and we stopped his home Plavix and replaced it with Effient. TOTAL TIME: [address]: Davina TID: [id number]
--- NOTE | 2021-11-23 14:35 | NUR ---
SS following up with discharge planning. SS reviewed pt chart and discussed with pt RN. Pt is currently on room air. Cardiology following. Pt had heart cath on 11/22/2021. Heparin drip. Orders received for home healthcare. Pt declining home healthcare at this time stating that he is not homebound. Pt's RN notified. SS will continue to follow for discharge planning.
[2021-11-23 15:00] VITALS: BP 131/65
--- NOTE | 2021-11-23 15:19 | PDOC ---
ARISTEO AGUILERA MANAGER AIR 11/23/21 1519: CARDIO Progress Notes Date and Time Date of Service 11/23/2021 Time of Evaluation 1450 Subjective Subjective: No Chest Pain, No shortness of breath, No Palpitations Vitals Vitals Vital Signs Date Time Temp Pulse Resp B/P (MAP) Pulse Ox O2 Delivery O2 Flow Rate FiO2 11/23/21 11:00 98.0 82 18 151/85 (107) 97 Room Air 98.0 11/22/21 17:26 2.0 Weight Weight [ ] Input and Output Intake and Output Intake and Output 11/23/21 07:00 Intake Total 860 ml Output Total 1550 ml Balance -690 ml Intake Oral 860 ml Output Urine Total 1550 ml # Voids 1 # Bowel Movements 1 Laboratory Labs Laboratory Tests Test 11/22/21 15:56 11/22/21 22:40 11/23/21 04:00 Activated Clotting Time 271 sec (92-181) Heparin Anti-Xa Act, Unfractionated 0.40 IU/mL (0.30-0.70) 0.44 IU/mL (0.30-0.70) White Blood Count 6.8 x10^3/uL (4.0-11.0) Red Blood Count 4.60 x10^6/uL (4.30-5.70) Hemoglobin 14.7 g/dL (13.0-17.5) Hematocrit 44.0 % (39.0-53.0) Mean Corpuscular Volume 96 fL (79-100) Mean Corpuscular Hemoglobin 32 pg (25-35) Mean Corpuscular Hemoglobin Concent 33 g/dL (31-37) Red Cell Distribution Width 13.3 % (11.5-14.5) Platelet Count 193 x10^3/uL (140-400) Triglycerides Level 100 mg/dL (0-150) Cholesterol Level 113 mg/dL (0-200) LDL Cholesterol, Calculated 29 mg/dL (0-100) VLDL Cholesterol, Calculated 20 mg/dL (0-40) Non-HDL Cholesterol Calculated 49 mg/dL (0-129) HDL Cholesterol 64 mg/dL (40-60) Cholesterol/HDL Ratio 1.8 Physical Exam HEENT: Neck Supple W Full Motion Chest: Symmetric Heart: S1S2, RRR (SR) Abdomen: Soft N/T Extremities: No Calf Tenderness, Other (small hematoma to right radial arteriotomy and oozing) Neurology: alert, oriented, follow commands Assessment Assessment 1. Chest pain: UA features. S/P POBA to LCx. Noted with 3VD 2. CAD: RCA stent in 01/06/2017 3. HTN: controlled 4. HLP 5. PAD: past LLE fem pop bypass, clinically stable Recommendations 1. Continue ASA. Change plavix to effient 2. Secondary prevention measures 3. DC heparin and monitor right radial arteriotomy site. If good hemostasis then may DC this evening. 4. Unable to deliver a stent due to significant proximal tortuosity and calcification despite use of guide extension catheters and aggressive balloon dilation plan for a outpatient orbital atherectomy PCI of the left circumflex in 2 weeks 5. Cardiac rehab Justicifation of Admission Dx: Justifications for Admission: Justification of Admission Dx: Yes JEREMY PETERSEN MD 11/23/21 1646: CARDIO Progress Notes Plan Plan The patient was seen and interviewed as well as examined at the bedside. The chart was reviewed. The case was discussed. Agree with the plan of care. Needs additional 24 hours monitoring. Return to lab in 2 weeks for complex pci. Home on asa, prasugrel. Thanks ARISTEO AGUILERA APRN Nov 23, 2021 15:19 JEREMY PETERSEN MD Nov 23, 2021 16:46
[2021-11-23] MEDS: PRASUGREL 10 MG TABLET. PO SCH (15:35)
--- NOTE | 2021-11-23 16:21 | CARD ---
MR#: [id number] Date of Study: 11/23/2021 Ordering Physician: ARISTEO AGUILERA, Referring Physician: ARISTEO AGUILERA Tech: Swathi Sweeney [facility] APPROVED REPORT EXAM: Two-dimensional and M-mode echocardiogram with Doppler and color Doppler. Other Information Quality : Technically LimitedHR: 80bpm Rhythm : NSR INDICATION Cardiac Disease: CAD RISK FACTORS Hypertension Obesity Hyperlipidemia 2D DIMENSIONS RVDd3.2 (2.9-3.5cm)Left Atrium(2D)3.2 (1.6-4.0cm) IVSd1.1 (0.7-1.1cm)Aortic Root(2D)4.2 (2.0-3.7cm) LVDd4.9 (3.9-5.9cm)LVOT Diameter2.6 (1.8-2.4cm) PWd1.1 (0.7-1.1cm)LVDs2.9 (2.5-4.0cm) FS (%) 41.4 %SV82.6 ml Aortic Valve AoV Peak Donte.117.5cm/sAoV VTI24.0cm AO Peak GR.5.5mmHgLVOT Peak Donte.83.2cm/s AO Mean GR.3mmHgAVA (VMAX)3.62cm2 Mitral Valve MV E Augctndg10.7cm/sMV DECEL [id number] MV A Rueguxlq214.1cm/sE/A Ratio0.6 Pulmonary Valve PV Peak Rfkebonq872.6cm/s LEFT VENTRICLE The left ventricle is normal size. There is borderline concentric left ventricular hypertrophy. The l eft ventricular systolic function is normal and the ejection fraction is within normal range. LV eje ction fraction is 55 to 60%. There is normal LV segmental wall motion. Transmitral Doppler flow patte rn is Grade I-abnormal relaxation pattern. RIGHT VENTRICLE The right ventricle is normal size. There is normal right ventricular wall thickness. The right ventr icular systolic function is normal. ATRIA The left atrium size is normal. The right atrium size is normal. The interatrial septum is intact wit h no evidence for an atrial septal defect or patent foramen ovale as noted on 2-D or Doppler imaging. AORTIC VALVE The aortic valve is normal in structure and function. Doppler and Color Flow revealed no significant aortic regurgitation. There is no significant aortic valvular stenosis. MITRAL VALVE The mitral valve is normal in structure and function. There is no evidence of mitral valve prolapse. There is no mitral valve stenosis. Doppler and Color-flow revealed trace mitral regurgitation. TRICUSPID VALVE The tricuspid valve is normal in structure and function. Doppler and Color Flow revealed trace tricus pid regurgitation. There is no tricuspid valve stenosis. PULMONIC VALVE The pulmonary valve is normal in structure and function. Doppler and Color Flow revealed no pulmonic valvular regurgitation. GREAT VESSELS The aortic root is mildly enlarged. The IVC is normal in size and collapses >50% with inspiration. PERICARDIAL EFFUSION There is no evidence of significant pericardial effusion. Critical Notification Critical Value: No <Conclusion> The left ventricle is normal size. The left ventricular systolic function is normal and the ejection fraction is within normal range. LV ejection fraction is 55 to 60%. There is borderline concentric left ventricular hypertrophy. Doppler and Color Flow revealed no significant aortic regurgitation. There is no significant aortic valvular stenosis. Doppler and Color-flow revealed trace mitral regurgitation. Doppler and Color Flow revealed trace tricuspid regurgitation. Signed by : Meng Davidson MD Electronically Approved : 11/23/2021 16:20:26
[2021-11-23 19:02] VITALS: BP 133/73
[2021-11-23] MEDS: ATORVASTATIN CALCIUM 40 MG TABLET. PO SCH (20:14)
[2021-11-23] MEDS: PSYLLIUM HUSK (SUGAR FREE) 1 PKT PACKET PO SCH (20:17)
[2021-11-23 23:00] VITALS: BP 100/55
[2021-11-24 03:50] VITALS: BP 129/72
[2021-11-24] MEDS: PANTOPRAZOLE 40 MG TABLET.DR. PO SCH ×2 (05:45→08:04)
[2021-11-24 07:22] VITALS: BP 178/86
[2021-11-24] MEDS ORDERED: PRASUGREL 10 MG TABLET. PO SCH (08:00)
[2021-11-24] MEDS: LACTOBACILLUS RHAMNOSUS GG 1 CAPSULE. PO SCH (08:03)
[2021-11-24] MEDS: MULTIVITAMIN with MINERAL TABLET. PO SCH (08:03)
[2021-11-24] MEDS: PRASUGREL 10 MG TABLET. PO SCH (08:03)
[2021-11-24] MEDS: ASPIRIN CHEWABLE 81 MG TABLET. PO SCH (08:03)
[2021-11-24] MEDS: METOPROLOL TART IMMED RELEASE 50 MG TABLET. PO SCH (08:03)
[2021-11-24 08:04] VITALS: BP 155/86
[2021-11-24] MEDS: LISINOPRIL 20 MG TABLET PO SCH (08:04)
--- NOTE | 2021-11-24 09:20 | NUR ---
Discharged patient to home. Discharge instructions given. piv and heart monitor removed. Escorted patient off unit per wheelchair into a private vehicle.
--- NOTE | 2021-11-24 09:45 | PDOC ---
PROGRESS NOTES Date of Service: DATE: 11/24/21 TIME: 09:44 Subjective Subjective Denied any chest pain Objective Objective Vital Signs Date Time Temp Pulse Resp B/P (MAP) Pulse Ox O2 Delivery O2 Flow Rate FiO2 11/24/21 08:04 97 155/86 11/24/21 08:00 Room Air 2.0 11/24/21 07:22 97.8 18 97 97.8 Intake and Output 11/24/21 07:00 Intake Total 875 ml Output Total 800 ml Balance 75 ml Intake Oral 875 ml Output Urine Total 800 ml Physical Exam Abdomen: Normal bowel sounds, Soft, No tenderness, No hepatosplenomegaly, No masses Heart: Regular rate (SR), Normal S1, Normal S2 Extremities: No clubbing, No cyanosis, No edema, Normal pulses, No tenderness/swelling General: Alert, Oriented X3, Cooperative, mild distress HEENT: Atraumatic, PERRLA, EOMI, Mucous membr. moist/pink Lungs: Clear to auscultation, Normal air movement MUSCULOSKELETAL: Osteoarthritic changes both hands Neuro: Normal gait, Normal speech, Strength at 5/5 X4 ext, Normal tone, Sensation intact, Cranial nerves 3-12 NL, Reflexes 2+ Psych/Mental Status: Mental status NL, Mood NL Skin: No rashes, No breakdown, No significant lesion, Other (left medial calf with scarring) Assessment Assessment 1. Chest pain: UA features. S/P POBA to LCx. Unable to deliver stent due to heavy calcification 2. CAD: RCA stent in 01/06/2017 3. HTN: controlled 4. HLP 5. PAD: past LLE fem pop bypass, clinically stable Recommendations 1. Continue ASA and Effient 2. Secondary prevention measures 3. Plan for orbital atherectomy/PCI/stent placement to LCx in 2 weeks Comment Review of Relevant I have reviewed the following items lane (where applicable) has been applied. Medications Current Medications Folic Acid (Folic Acid) 1 mg DAILY PO ; Start 11/27/21 at 09:00 Prasugrel (Effient) 10 mg DAILYWBKFT PO Last administered on 11/24/21at 08:03; Start 11/23/21 at 16:00 Prasugrel (Effient) 10 mg DAILYWBKFT PO ; Start 11/24/21 at 08:00; Stop 11/23/21 at 15:21; Status DC Thiamine Mononitrate (Vitamin B-1) 100 mg DAILY PO ; Start 11/27/21 at 09:00 Vitals/I & O Vital Sign - Last 24 Hours 11/23/21 11/23/21 11/23/21 11/23/21 11:00 15:00 19:02 20:00 Temp 98.0 97.0 97.5 98.0 97.0 97.5 Pulse 82 90 89 Resp 18 18 20 B/P (MAP) 151/85 (107) 131/65 (87) 133/73 (93) Pulse Ox 97 97 97 O2 Delivery Room Air Room Air Room Air Room Air 11/23/21 11/23/21 11/24/21 11/24/21 20:17 23:00 03:50 07:22 Temp 97.5 97.9 97.8 97.5 97.9 97.8 Pulse 89 71 88 97 Resp 20 20 18 B/P (MAP) 133/73 100/55 (70) 129/72 (91) 178/86 (116) Pulse Ox 96 96 97 O2 Delivery Room Air Room Air Room Air 11/24/21 11/24/21 11/24/21 11/24/21 08:00 08:03 08:03 08:04 Pulse 97 97 97 B/P (MAP) 155/86 155/86 155/86 O2 Delivery Room Air O2 Flow Rate 2.0 Intake and Output 11/23/21 11/23/21 11/24/21 15:00 23:00 07:00 Intake Total 275 ml 500 ml 100 ml Output Total 550 ml 250 ml Balance -275 ml 250 ml 100 ml Justification for admission: Patient's respiratory distress as indicated by (SOB/tachypnea/abnormal breathing pattern plus hypoxemia/AMS/other evidence of respiratory compromise such as pulmonary edema on chest x-ray) will need inpatient level of care. AMANDA CALIX MD Nov 24, 2021 09:45
[2021-11-27] MEDS ORDERED: FOLIC ACID 1 MG TABLET. PO SCH (09:00)
[2021-11-27] MEDS ORDERED: THIAMINE 100 MG TABLET. PO SCH (09:00)
== END 2021-11-24 09:10 | disposition home or self-care (01) | DRG 251 ==
LOC: 2 NORTH 11:31 → 6 SOUTH 14:57
PROVIDERS: ADMIT Internal Medicine; ATTEND Internal Medicine
PROC: 02JA3ZZ Inspection of Heart, Percutaneous Approach (ICD-10-PCS; principal; 2021-11-22)
PROC: 02703ZZ Dilation of Coronary Artery, One Artery, Percutaneous Approach (ICD-10-PCS; 2021-11-22)
PROC: 4A023N7 Measurement of Cardiac Sampling and Pressure, Left Heart, Percutaneous Approach (ICD-10-PCS; 2021-11-22)
PROC: B2111ZZ Fluoroscopy of Multiple Coronary Arteries using Low Osmolar Contrast (ICD-10-PCS; 2021-11-22)
PROC: 3E033PZ Introduction of Platelet Inhibitor into Peripheral Vein, Percutaneous Approach (ICD-10-PCS; 2021-11-22)
DX: I25.110 Atherosclerotic heart disease of native coronary artery with unstable angina pectoris (principal); E78.5 Hyperlipidemia, unspecified; I10 Essential (primary) hypertension; I73.9 Peripheral vascular disease, unspecified; Y93.K1 Activity, walking an animal; Z20.822 Contact with and (suspected) exposure to COVID-19; Z82.49 Family history of ischemic heart disease and other diseases of the circulatory system; Z87.891 Personal history of nicotine dependence; Z95.5 Presence of coronary angioplasty implant and graft; K21.9 Gastro-esophageal reflux disease without esophagitis; M19.90 Unspecified osteoarthritis, unspecified site
CPT/HCPCS: 92920; 93454; C8929; 36415; 80061; 85027; 85347; 85520; 99152; 99153; C1725; C1894; J1644; J2250; J3010; J3490; Q9967; G0378; J3246

== ENCOUNTER 2021-12-13 07:02 | Observation (INO) | payer MEDICARE, OTHER ==
[2021-12-13] VITALS (22 sets, daily range): BP systolic 120–156; BP diastolic 55–83
[~2021-12-13] VITALS: Ht 190.5 cm; Wt 108.3 kg
[~2021-12-13 07:02] MED LIST changes: +ASPI81TA59 PO; +ATOR40TA59 PO; +OMEP40CA7 PO; +PANT20TA2 PO; +PRAS10TA9 PO
[2021-12-13] MEDS ORDERED: HEPARIN for ARTERIAL LINE 1,500 ML ONE (07:34)
[2021-12-13] MEDS ORDERED: LIDOCAINE 1% Multi-Dose 20 ML VIAL. ONE (07:34)
[2021-12-13] MEDS ORDERED: IODIXANOL 320 MG/ML 100 ML VIAL. ONE (07:34)
[2021-12-13 07:48] LABS: HEMATOCRIT 45.8 % (39.0-53.0); HEMOGLOBIN 15.4 g/dL (13.0-17.5); RED BLOOD COUNT 4.83 x10^6/uL (4.30-5.70); RED CELL DISTRIBUTION WIDTH 13.2 % (11.5-14.5); WHITE BLOOD COUNT 8.8 x10^3/uL (4.0-11.0)
[2021-12-13 07:53] LABS: CREATININE 1.2 mg/dL (0.7-1.3); GFR 60.6; POTASSIUM 4.7 mmol/L (3.5-5.1)
[2021-12-13 08:05] LABS: PROTHROMBIN TIME PATIENT 13.7 SEC (11.7-14.0)
--- NOTE | 2021-12-13 08:20 | PDOC ---
MODERATE SEDATION ASSESSMENT RISKS/ALTERNATIVES Risks/Alternatives Risks and alternatives of this type of sedation and procedure discussed with: RISK/ALTERNATIVES: Patient H & P ON CHART H & P H & P on chart and reviewed for co-morbid conditions and appropriate labs. H&P ON CHART: Yes STATUS PREG STATUS ASSESSED: N/A MEDS/ALLERGIES REVIEWED Meds/Allergies Reviewed Medications and Allergies including time and route of recently administered narcotics and sedatives. MEDS/ALLERGIES REVIEWED: Yes ASA RATING ASA RATING: II AIRWAY ASSESSMENT Airway Assessment Airway patency, oral function limitations, presence of caps, crowns, dentures, partials, and ability to extend neck assessed. AIRWAY ASSESSMENT: Yes MALLAMPATI SCORE MALLAMPATI SCORE: II PRE-SEDATION ASSESSMENT PRE-SEDATION ASSESSMENT: Yes JEREMY PETERSEN MD Dec 13, 2021 08:20
[2021-12-13] MEDS ORDERED: MIDAZOLAM HCL/PF 2 MG/2 ML VIAL. ONE (08:23)
[2021-12-13] MEDS ORDERED: fentaNYL PF VIAL 100 MCG/2 ML VIAL ONE (08:23)
--- NOTE | 2021-12-13 08:23 | PDOC1 ---
History and Physical Visit Information Date of Admission: 12/13/2021 History of Present Illness History of Present Illness Jalil is a pleasant 65-year-old man with past medical history of coronary artery disease who presented approximate 3 weeks ago in the setting of unstable angina. He underwent a coronary [place] which revealed a heavily calcified proximal circumflex lesion. Despite several attempts at delivery of a stent it was notable to be performed. Therefore the patient returns today for a planned atherectomy and PCI of the left circumflex stenosis. The patient continues to have intermittent shortness of breath and chest pain. He has been compliant with his dual antiplatelet therapy. He denies any bleeding issues or any other acute cardiac problems at this time. Current Medications Current Medications Current Medications Heparin Sodium/ Sodium Chloride 1,500 ml @ As Directed STK-MED ONCE .ROUTE ; Start 12/13/21 at 07:34; Stop 12/13/21 at 07:35; Status DC Iodixanol (Visipaque 320) 100 ml STK-MED ONCE .ROUTE ; Start 12/13/21 at 07:34; Stop 12/13/21 at 07:34; Status DC Lidocaine HCl (Lidocaine 1% 20ml Vial) 20 ml STK-MED ONCE .ROUTE ; Start 12/13/21 at 07:34; Stop 12/13/21 at 07:34; Status DC Allergies Allergies Allergies Coded Allergies Type Severity Reaction Last Updated Verified No Known Drug Allergies 03/23/21 No Social History Comments No alcohol, tobacco or illicit drug Family History Comments Noncontributory ROS Review of System Negative for 10 out of 14 systems reviewed unless otherwise mentioned above in HPI Physical Exam Comments The patient appeared well nourished and normally developed. Head exam is unremarkable. No scleral icterus or corneal arcus noted. Neck is without jugular venous distension, thyromegaly, or carotid bruits. Carotid upstrokes are brisk bilaterally. Lungs are clear to auscultation and percussion. Cardiac exam reveals the PMI to be normally sized and situated. Rhythm is regular. First and second heart sounds normal. No murmurs, rubs or gallops. Abdominal exam reveals normal bowel sounds, no masses, no organomegaly and no aortic enlargement. Extremities are nonedematous and both femoral and pedal pulses are normal. Msk: No traumua Neuro: No focal deficits Vitals VITALS Vital Signs Date Time Temp Pulse Resp B/P (MAP) Pulse Ox O2 Delivery O2 Flow Rate FiO2 12/13/21 07:47 Room Air 12/13/21 07:44 98.1 77 12 136/72 (93) 95 98.1 Labs Labs Laboratory Tests Test 12/13/21 07:30 White Blood Count 8.8 x10^3/uL (4.0-11.0) Red Blood Count 4.83 x10^6/uL (4.30-5.70) Hemoglobin 15.4 g/dL (13.0-17.5) Hematocrit 45.8 % (39.0-53.0) Mean Corpuscular Volume 95 fL (79-100) Mean Corpuscular Hemoglobin 32 pg (25-35) Mean Corpuscular Hemoglobin Concent 34 g/dL (31-37) Red Cell Distribution Width 13.2 % (11.5-14.5) Platelet Count 272 x10^3/uL (140-400) Prothrombin Time 13.7 SEC (11.7-14.0) Prothromb Time International Ratio 1.1 (0.8-1.1) Sodium Level 139 mmol/L (136-145) Potassium Level 4.7 mmol/L (3.5-5.1) Chloride Level 102 mmol/L (98-107) Carbon Dioxide Level 25 mmol/L (21-32) Anion Gap 12 (6-14) Blood Urea Nitrogen 14 mg/dL (8-26) Creatinine 1.2 mg/dL (0.7-1.3) Estimated GFR (Cockcroft-Gault) 60.6 Glucose Level 127 mg/dL (70-99) Calcium Level 9.0 mg/dL (8.5-10.1) Laboratory Tests Test 12/13/21 07:30 White Blood Count 8.8 x10^3/uL (4.0-11.0) Red Blood Count 4.83 x10^6/uL (4.30-5.70) Hemoglobin 15.4 g/dL (13.0-17.5) Hematocrit 45.8 % (39.0-53.0) Mean Corpuscular Volume 95 fL (79-100) Mean Corpuscular Hemoglobin 32 pg (25-35) Mean Corpuscular Hemoglobin Concent 34 g/dL (31-37) Red Cell Distribution Width 13.2 % (11.5-14.5) Platelet Count 272 x10^3/uL (140-400) Prothrombin Time 13.7 SEC (11.7-14.0) Prothromb Time International Ratio 1.1 (0.8-1.1) Sodium Level 139 mmol/L (136-145) Potassium Level 4.7 mmol/L (3.5-5.1) Chloride Level 102 mmol/L (98-107) Carbon Dioxide Level 25 mmol/L (21-32) Anion Gap 12 (6-14) Blood Urea Nitrogen 14 mg/dL (8-26) Creatinine 1.2 mg/dL (0.7-1.3) Estimated GFR (Cockcroft-Gault) 60.6 Glucose Level 127 mg/dL (70-99) Calcium Level 9.0 mg/dL (8.5-10.1) ECG EKG: NSR VTE Prophylaxis Ordered VTE Prophylaxis Devices: No VTE Pharmacological Prophylaxi: No Assessment/Plan Assessment/Plan 1. Angina with severe proximal left circumflex stenosis and heavy calcification. I discussed the risks and benefits previously and today with the patient regarding atherectomy and PCI of the left circumflex for symptomatic relief of his angina. He is on appropriate medical therapy. We will plan for coronary angiography with intravascular ultrasound guidance and orbital atherectomy with PCI. Justicifation of Admission Dx: Justifications for Admission: Justification of Admission Dx: Yes JEREMY PETERSEN MD Dec 13, 2021 08:23
[2021-12-13] MEDS ORDERED: HEPARIN for IV BOLUS 10,000 UNIT/10 ML VIAL. ONE (08:39)
[2021-12-13] MEDS ORDERED: PHENYLEPHRINE in 0.9% NACL PF 1 MG/10 ML SYRINGE. IV ONE (08:51)
[2021-12-13] MEDS ORDERED: fentaNYL PF VIAL 100 MCG/2 ML VIAL IV ONE (09:15)
[2021-12-13] MEDS ORDERED: LIDOCAINE 1% Multi-Dose 20 ML VIAL. INJ ONE (09:15)
[2021-12-13] MEDS ORDERED: HEPARIN for IV BOLUS 10,000 UNIT/10 ML VIAL. IV ONE (09:15)
[2021-12-13] MEDS ORDERED: MIDAZOLAM HCL/PF 2 MG/2 ML VIAL. IV ONE (09:15)
[2021-12-13] MEDS ORDERED: IODIXANOL 320 MG/ML 100 ML VIAL. IART ONE (09:15)
[2021-12-13] MEDS ORDERED: NITROGLYCERIN 200 MCG/2 ML SYRINGE FOR CATH/VASC LAB. ONE (09:29)
[2021-12-13] MEDS ORDERED: CONTRAST GIVEN. MC PRN (09:30)
[2021-12-13] MEDS ORDERED: NITROGLYCERIN 200 MCG/2 ML SYRINGE FOR CATH/VASC LAB. ICAR ONE (10:00)
--- NOTE | 2021-12-13 16:29 | CARD ---
MR#: [id number] Date of Study: 12/13/2021 Ordering Physician: JEREMY HOPKINS, Referring Physician: JEREMY HOPKINS, Tech: Liss Morales APPROVED REPORT Technologist: Liss Morales Nurse: Soumya Christiansen RN Procedure(s) performed: fl time: 18.3 min dose: 131 gycm2 contrast: 75 ml moderate sedation: 87 MINUTES IVUS, Orbital atherectomy and PTCA of the LCx. INDICATION The indication(s) include : unstable angina . CSHA Clinical Frailty Scale [facility] Clinical Frailty Scale: Managing Well Heart Failure Heart Failure: No CASE TECHNIQUE IV conscious sedation was used throughout procedure with appropriate monitoring and was performed in the presence of a registered nurse who was an independent trained observer other than the physician p erforming the procedure. During this case, Fluoroscopy and low osmolar contrast were used for imaging . Specimen(s) Removed: N/A Estimated Blood loss: 20 cc's. PROCEDURE NARRATIVE Clinical information: 65-year-old male who presented with unstable angina initially to the hospital approximately 3 weeks a go had a failed PCI due to extensive tortuosity and calcification returns to the lab today for planne d atherectomy and PCI. Procedure details: Under 1% lidocaine local anesthesia a 6 [place] sheath was placed in the right common femoral artery. Heparin was used for anticoagulation. The patient was previously on aspirin and prasugrel. Next th rough a 6 [place] EBU 4.0 guide catheter a Prowater wire was placed in the distal left circumflex. In itial attempts to advance a intravascular ultrasound catheter were unsuccessful. Next, the Prowater wire was exchanged for a Viper wire. Next, a I orbital atherectomy device was used to perform athe rectomy of the left circumflex. The lesion was then angioplastied with a 2.75 x 15 mm noncompliant b alloon. Subsequently, a IVUS catheter was able to be advanced across the left circumflex although th is was quite difficult due to circumferential calcification. The vessel was measuring approximately 4.5 mm. Next attempt to advance a 4.0 x 20 mm drug-eluting stent were unsuccessful despite the use of a guide liner catheter and balloon angioplasty with a 3.5 mm noncompliant balloon. Angiography after athere ctomy and angioplasty revealed significant resolution of the calcific burden. Due to SEUN-3 flow in the vessel and difficulty despite atherectomy to deliver a stent a decision was made to defer further intervention. Final angiography demonstrated SEUN-3 flow without any evidence of guide or wire rela maggie complications. At case completion the catheters and sheaths were removed and hemostasis was achi eved via manual compression. The patient tolerated the procedure well. No acute complications. SEUN Flow SEUN Flow (Pre-Intervention): SEUN-3 SEUN Flow (Post-Intervention): SEUN-3 Conclusion 1. Two-vessel coronary artery disease 2. Successful PTCA and orbital atherectomy of the proximal left circumflex 3. Unable to deliver a stent due to proximal tortuosity and significant calcific burden. In the fut ure if necessary could consider shockwave angioplasty to help with stent delivery. Recommendations Aspirin 81 mg daily Prasugrel 10 mg daily Signed by : Jeremy Hopkins, Electronically Approved : 12/13/2021 16:28:58
[2021-12-13] MEDS ORDERED: ATORVASTATIN CALCIUM 40 MG TABLET. PO SCH (21:00)
[2021-12-13] MEDS: LACTOBACILLUS RHAMNOSUS GG 1 CAPSULE. PO SCH (21:41)
[2021-12-13] MEDS: METOPROLOL TART IMMED RELEASE 50 MG TABLET. PO SCH (21:42)
[2021-12-14 02:32] VITALS: BP 142/75
[2021-12-14 07:00] VITALS: BP 145/84
[2021-12-14] MEDS ORDERED: PANTOPRAZOLE 40 MG TABLET.DR. PO SCH (07:30)
[2021-12-14] MEDS: LACTOBACILLUS RHAMNOSUS GG 1 CAPSULE. PO SCH (08:33)
[2021-12-14] MEDS: METOPROLOL TART IMMED RELEASE 50 MG TABLET. PO SCH (08:33)
[2021-12-14] MEDS ORDERED: LISINOPRIL 20 MG TABLET PO SCH (09:00)
[2021-12-14] MEDS ORDERED: ASPIRIN CHEWABLE 81 MG TABLET. PO SCH (09:00)
[2021-12-14] MEDS ORDERED: PRASUGREL 10 MG TABLET. PO SCH (09:00)
[2021-12-14] MEDS ORDERED: MULTIVITAMIN with MINERAL TABLET. PO SCH (09:00)
[2021-12-14] MEDS ORDERED: ASCORBIC ACID 500 MG TABLET PO SCH (09:00)
--- NOTE | 2021-12-14 10:03 | NUR ---
SS following for discharge planning. SS reviewed pt chart and discussed with pt RN. Pt is from home with spouse and is currently on room air. Cardiology following. Pt had heart cath on 12/13/2021. Discharge plan is currently to home when medically ready for discharge. SS will continue to follow for discharge planning.
[2021-12-14 11:00] VITALS: BP 161/83
--- NOTE | 2021-12-14 12:56 | PDOC3 ---
ARISTEO AGUILERA PROPELLER MECHANIC 12/14/21 1255: Discharge Summary Visit Information Date of Admission: Dec 13, 2021 Date of Discharge: Dec 14, 2021 Admitting Diagnosis: CAD, HTN, HLP Final Diagnosis CAD, HTN, HLP, S/P PTCA Brief Hospital Course Allergies Allergies Coded Allergies Type Severity Reaction Last Updated Verified No Known Drug Allergies 03/23/21 No Vital Signs Vital Signs Date Time Temp Pulse Resp B/P (MAP) Pulse Ox O2 Delivery O2 Flow Rate FiO2 12/14/21 08:33 100 145/84 12/14/21 07:46 Room Air 12/14/21 07:00 97.8 17 96 97.8 12/13/21 10:00 2.0 Lab Results Laboratory Tests Test 12/13/21 07:30 12/13/21 08:50 12/13/21 09:36 White Blood Count 8.8 x10^3/uL (4.0-11.0) Red Blood Count 4.83 x10^6/uL (4.30-5.70) Hemoglobin 15.4 g/dL (13.0-17.5) Hematocrit 45.8 % (39.0-53.0) Mean Corpuscular Volume 95 fL (79-100) Mean Corpuscular Hemoglobin 32 pg (25-35) Mean Corpuscular Hemoglobin Concent 34 g/dL (31-37) Red Cell Distribution Width 13.2 % (11.5-14.5) Platelet Count 272 x10^3/uL (140-400) Prothrombin Time 13.7 SEC (11.7-14.0) Prothromb Time International Ratio 1.1 (0.8-1.1) Sodium Level 139 mmol/L (136-145) Potassium Level 4.7 mmol/L (3.5-5.1) Chloride Level 102 mmol/L (98-107) Carbon Dioxide Level 25 mmol/L (21-32) Anion Gap 12 (6-14) Blood Urea Nitrogen 14 mg/dL (8-26) Creatinine 1.2 mg/dL (0.7-1.3) Estimated GFR (Cockcroft-Gault) 60.6 Glucose Level 127 mg/dL (70-99) Calcium Level 9.0 mg/dL (8.5-10.1) Activated Clotting Time 322 sec (92-181) 190 sec (92-181) Brief Hospital Course Mr. Glez is a 65 yo male admitted for planned PCI with known CAD.. He has a known and had a successful PTCA and orbital atherectomy of the proximal left circumflex. Unable to deliver a stent due to proximal tortuosity and significant calcific burden. In the future if necessary could consider shockwave angioplasty to help with stent delivery. He tolerated the procedure well. Denies any chest pain or SOA. AOx3, LSCTA, SR without significant ectopies. Abd is soft and nontender. No significant peripheral edema and right groin arteriotomy site is intact, soft, no erythema to site. Neurovascular status to bilateral LE intact. He is ambulatory without difficulty. VSS. Discussed about post PCI instruction and importance of cardiac rehab and verbalized understand. No changes in his medications and he will continue to use ASA and effient. Discharge Information Condition at Discharge: Stable Follow Up: Weeks (8) Disposition/Orders: D/C to Home Scheduled Amlodipine Besylate (Amlodipine Besylate) 10 Mg Tablet, 10 MG PO DAILY for htn, (Reported) Entered as Reported by: ELY CHEN RN on 11/22/21 1152 Last Taken: Unknown Dose on 12/13/21 Last Action: Continued on 12/13/21 1145 by JESUS STATON RN Ascorbic Acid (Vitamin C) 500 Mg Tablet, 500 MG PO DAILY for SUPPLEMENT for 30 Days, #30 Prescribed by: HAYDER JACKSON MD on 04/23/21 1032 Last Action: Continued on 12/13/21 1145 by JESUS STATON RN Aspirin (Children's Aspirin) 81 Mg Tab.chew, 81 MG PO DAILY for Cardiac, (Reported) Entered as Reported by: ELY CHEN RN on 11/22/21 1152 Last Taken: Unknown Dose on 12/13/21 Last Action: Continued on 12/13/21 1145 by JESUS STATON RN Atorvastatin Calcium (Atorvastatin Calcium) 40 Mg Tablet, 1 TAB PO DAILY for HLD, #30 Ref 5 (Reported) Entered as Reported by: ROSE MARY LOPEZ RN on 11/22/21 1221 Last Action: Continued on 12/13/21 1145 by JESUS STATON RN Lactobacillus Rhamnosus Gg (Culturelle) 1 Each Cap.sprink, 1 CAP PO BID for SUPPLEMENT for 30 Days, #60 Prescribed by: HAYDER JACKSON MD on 04/23/21 1032 Last Action: Continued on 12/13/21 114 by JESUS STATON RN Lisinopril (Lisinopril) 20 Mg Tablet, 1 TAB PO DAILY for htn, #30 Ref 5 (Reported) Entered as Reported by: ELY CHEN RN on 11/22/21 115 Last Taken: Unknown Dose on 12/13/21 Last Action: Continued on 12/13/21 1145 by JESUS STATON RN Metoprolol Tartrate (Metoprolol Tartrate) 50 Mg Tablet, 1 TAB PO BID for htn, #60 Ref 5 (Reported) Entered as Reported by: ELY CHEN RN on 11/22/21 115 Last Taken: Unknown Dose on 12/13/21 Last Action: Continued on 12/13/21 1145 by JESUS STATON RN Multivits,Ca,Minerals/Iron/Fa (Thera-M Tablet) 1 Each Tablet, 1 TAB PO DAILY for SUPPLEMENT for 30 Days, #30 Prescribed by: HAYDER JACKSON MD on 04/23/21 1032 Last Action: Continued on 12/13/21 114 by JESUS STATON RN Pantoprazole Sodium (Protonix) 20 Mg Tablet.dr, 1 TAB PO DAILY for gerd, #30 (Reported) Entered as Reported by: ELY CHEN RN on 11/22/21 1155 Last Action: Converted on 12/13/21 114 by JESUS STATON RN Prasugrel Hcl (Effient) 10 Mg Tablet, 1 TAB PO DAILY for cad, #90 Ref 3 Prescribed by: NIAReynaldo JOHNSON on 11/23/21 1048 Last Taken: Unknown Dose on 12/13/21 Last Action: Continued on 12/13/21 114 by JESUS STATON RN Scheduled PRN Nitroglycerin (NITROGLYCERIN SubLingual) 0.4 Mg Tab.subl, 0.4 MG SL PRN Q5MIN PRN for CHEST PAIN, #14 Ref 1 Use when you are having chest pain. Maximum of 3 tabs per required interval for chest pain. Do not use if taking viagra or cialis. Call 911 for chest pain especially if not resolved after first dose Prescribed by: ARISTEO AGUILERA on 12/14/21 2901 Patient Instructions Patient Instructions GENERAL INSTRUCTIONS: 1. Your dressing should be removed prior to leaving the hospital. 2. It is OK to shower the day after your procedure. 3. If you received stents, be sure to carry your stent information card with you in your wallet/purse at all times. 4. Call the office immediately at [phone] if you notice any fever or if there is redness, worsening tenderness/pain, increased bruising, or drainage from the puncture site. 5. Should you have bleeding from the site, lie down immediately & put pressure on the site. The pressure should be hard enough to stop the bleeding. Have the nearest person call 911. DO NOT try to drive to the ER with active bleeding. 6. If you notice a change in color, coolness to touch, or loss of feeling in the affected extremity, come to the emergency room. Please have someone drive you or call 911 if no one is available. DO NOT drive yourself. 7. If you normally take glucophage (metformin), please do not take this medicine for 48 hours following your procedure. 8. DO NOT STOP TAKING YOUR PLAVIX OR ASPIRIN UNLESS IT IS CLEARED BY A CODING ADVISOR OF YOUR FINANCIAL ANALYST INTERN AT OUR OFFICE. 9. QUIT SMOKING: the [place] [employer], [place] [employer], & [place] [employer] have cessation resources available on their websites 10. Please have someone available to drive you home from the hospital as you may be limited by sedation medications given during the procedure. Femoral (Groin) access: 1. Do no lifting, pushing, pulling, bending, stooping, or recurrent stair climbing for 3 days following your procedure. 2. Once past the first 3 days, do not do any HEAVY exertion or lifting for one week following the procedure. No gym workouts, running, lifting greater than a gallon of milk, etc 3. Do not submerge in bath or pool for one week. OK to drive 3 days following your procedure, but if going long distance, do not go alone & take hourly breaks to get out of car and walk around. Call the office at [phone] for any questions or concerns. Justicifation of Admission Dx: Justifications for Admission: Justification of Admission Dx: Yes JEREMY PETERSEN MD 12/14/21 8267: Discharge Summary Assessment Assessment Patient seen and examined. Agree with above nurse practitioner note. No acute events overnight. Continue current medical therapy. We will plan to follow-up with the patient in 2 months and reassess symptoms. Discharge Information Scheduled Amlodipine Besylate (Amlodipine Besylate) 10 Mg Tablet, 10 MG PO DAILY for htn, (Reported) Entered as Reported by: ELY CHEN RN on 11/22/21 115 Last Taken: Unknown Dose on 12/13/21 Last Action: Continued on 12/13/21 1145 by JESUS STATON RN Ascorbic Acid (Vitamin C) 500 Mg Tablet, 500 MG PO DAILY for SUPPLEMENT for 30 Days, #30 Prescribed by: HAYDER JACKSON MD on 04/23/21 1032 Last Action: Continued on 12/13/21 1145 by JESUS STATON RN Aspirin (Children's Aspirin) 81 Mg Tab.chew, 81 MG PO DAILY for Cardiac, (Reported) Entered as Reported by: ELY CHEN RN on 11/22/211151 Last Taken: Unknown Dose on 12/13/21 Last Action: Continued on 12/13/21 1145 by JESUS STATON RN Atorvastatin Calcium (Atorvastatin Calcium) 40 Mg Tablet, 1 TAB PO DAILY for HLD, #30 Ref 5 (Reported) Entered as Reported by: ROSE MARY LOPEZ RN on 11/22/21 1221 Last Action: Continued on 12/13/21 1145 by JESUS STATON RN Lactobacillus Rhamnosus Gg (Culturelle) 1 Each Cap.sprink, 1 CAP PO BID for SUPPLEMENT for 30 Days, #60 Prescribed by: HAYDER JACKSON MD on 04/23/21 1032 Last Action: Continued on 12/13/21 1145 by JESUS STATON RN Lisinopril (Lisinopril) 20 Mg Tablet, 1 TAB PO DAILY for htn, #30 Ref 5 (Reported) Entered as Reported by: ELY CHEN RN on 11/22/21 115 Last Taken: Unknown Dose on 12/13/21 Last Action: Continued on 12/13/21 1145 by JESUS STATON RN Metoprolol Tartrate (Metoprolol Tartrate) 50 Mg Tablet, 1 TAB PO BID for htn, #60 Ref 5 (Reported) Entered as Reported by: ELY CHEN RN on 11/22/21 115 Last Taken: Unknown Dose on 12/13/21 Last Action: Continued on 12/13/21 1145 by JESUS STATON RN Multivits,Ca,Minerals/Iron/Fa (Thera-M Tablet) 1 Each Tablet, 1 TAB PO DAILY for SUPPLEMENT for 30 Days, #30 Prescribed by: HAYDER JACKSON MD on 04/23/21 1032 Last Action: Continued on 12/13/21 1145 by JESUS STATON RN Pantoprazole Sodium (Protonix) 20 Mg Tablet.dr, 1 TAB PO DAILY for gerd, #30 (Reported) Entered as Reported by: ELY CHEN RN on 11/22/21 1155 Last Action: Converted on 12/13/21 114 by JESUS STATON RN Prasugrel Hcl (Effient) 10 Mg Tablet, 1 TAB PO DAILY for cad, #90 Ref 3 Prescribed by: ISIS JOHNSON on 11/23/21 1048 Last Taken: Unknown Dose on 12/13/21 Last Action: Continued on 12/13/21 1145 by JESUS STATON RN Scheduled PRN Nitroglycerin (NITROGLYCERIN SubLingual) 0.4 Mg Tab.subl, 0.4 MG SL PRN Q5MIN PRN for CHEST PAIN, #14 Ref 1 Use when you are having chest pain. Maximum of 3 tabs per required interval for chest pain. Do not use if taking viagra or cialis. Call 911 for chest pain especially if not resolved after first dose Prescribed by: ARISTEO AGUILERA on 12/14/21 1258 ARISTEO AGUILERA APRN Dec 14, 2021 12:55 JEREMY PETERSEN MD Dec 14, 2021 17:17
[2021-12-14] MEDS ORDERED: NITR0.4T22 SL (12:58)
--- NOTE | 2021-12-14 13:46 | NUR ---
Discharge Note: [facility] Discharge instructions and discharge home medications reviewed with Patient and a copy given. All questions have been answered and understanding verbalized. The following instructions and handouts were given: coronary angioplasty, nitroglycerin, groin site, post cardiac cath discharge. Patient discharged to home with self care via wheelchair.
== END 2021-12-14 13:20 | disposition home or self-care (01) ==
LOC: CCL 07:02 → 6 SOUTH 08:37 → INTOOBSV 08:37
PROVIDERS: ADMIT Internal Medicine Cardiovascular Disease; ATTEND Internal Medicine Cardiovascular Disease
DX: I25.110 Atherosclerotic heart disease of native coronary artery with unstable angina pectoris (principal); I10 Essential (primary) hypertension; K21.9 Gastro-esophageal reflux disease without esophagitis; E78.5 Hyperlipidemia, unspecified; Z79.02 Long term (current) use of antithrombotics/antiplatelets; Z79.82 Long term (current) use of aspirin; Z79.899 Other long term (current) drug therapy; Z98.61 Coronary angioplasty status
CPT/HCPCS: 36415; 80048; 85027; 85347; 85610; 92933; 92986; 93460; 99152; 99153; C1724; C1725; C1753; C1769; C1874; C1887; C1894; G0378; G0379; J1644; J2250; J3010; J3490; Q9967; 37252; 93454